=== PATIENT | female | born 1975 | race Caucasian/White ===

== ENCOUNTER 2016-08-08 16:34 | Emergency (ER) | payer OTHER ==
[~2016-08-08] VITALS: Ht 157.5 cm; Wt 94.6 kg
[~2016-08-08 16:34] MED LIST: FLXHP PO; GABA1CAP4 PO
[2016-08-08 16:36] VITALS: TEMP 37.3; Ht 157.5 cm; Wt 94.6 kg
[2016-08-08] MEDS ORDERED: SODIUM CHLORIDE 0.9% 1000ML 1,000 ML IV STA (17:55)
[2016-08-08] MEDS ORDERED: ALBUT/IPRATROP 3MG/0.5MG NEB 3 ML VIAL INH STA (17:55)
[2016-08-08] MEDS ORDERED: SODIUM CHLORIDE 0.9% 500ML 500 ML IV STA (17:55)
[2016-08-08] MEDS ORDERED: METHYLPREDNISOLONE 125 MG VIAL IV STA (18:03)
--- NOTE | 2016-08-08 18:06 | EMERGENCY ROOM VISIT NOTE ---
History Report prepared by Cedrick: Ary Jain Under the Supervision of: Dr. Misti Jay M.D. First contact with patient: 17:30 Chief Complaint: COUGH Stated Complaint: CHEST BURNING WHEN I COUGH, LT SHOULDER/COLLARBONE Nursing Triage Summary: Chest congestion and burning when coughing. Cant breathe right when she is laying down. Left shoulder and collarbone are "out" Has been out since February 05. History of Present Illness The patient is a 41 year old female who presents to the Emergency Room with complaints of a worsening cough since yesterday morning. She states that her chest feels congested and "I can feel my lungs burning when I cough." She rates her pain as an 8/10. She is feeling lightheaded from coughing. The patient notes low-grade fevers. She has a personal history of asthma. She has been using her albuterol inhaler and breathing treatments for her symptoms. Source of History: patient Onset: yesterday morning Position: chest (respiratory) Symptom Intensity: 8/10 Quality: burning Timing: worsening Modifying Factors (Relieving): other (breathing treatments/albuterol inhalers) Associated Symptoms: + fevers Note: Pt notes lightheadedness. Review of Systems See HPI for pertinent positives & negatives. A total of 10 systems reviewed and were otherwise negative. Past Medical & Surgical Medical Problems: (1) Acute bronchitis (2) Acute bronchitis (3) Acute bronchitis (4) Ankle sprain (5) Asthma exacerbation (6) Asthma exacerbation (7) Asthma exacerbation (8) ASTHMA, UNSPECIFIED (9) Asthmatic bronchitis (10) Asthmatic bronchitis (11) Back pain (12) Back strain (13) Bilateral otitis media (14) Chest pain (15) CHRONIC OBSTRUCTIVE ASTHMA, W (ACUTE) EXACERBATION (16) Contusion of back wall of thorax (17) COPD exacerbation (18) Fall due to ice or snow (19) FAM HX-DIABETES MELLITUS (20) FAM HX-ISCHEM HEART DIS (21) FAMILY HISTORY OF OTHER CARDIOVASCULAR DISEASES (22) FAMILY HISTORY OF OTHER CARDIOVASCULAR DISEASES (23) FAMILY HX-MALIGNANCY NOS (24) HISTORY OF TOBACCO USE (25) Hypertension (26) LUMBAGO (27) MIGRAINE UNSPECIFIED W/O INTRACT MGRN W/O STATUS MIGRAINOSUS (28) Rib pain (29) Shortness of breath (30) Spasm of back muscles (31) urinary tract infection Surgical Problems: (1) section (2) Cholecystectomy (3) Tubal ligation Family History Cancer Diabetes mellitus Heart disease Hypertension Lung disease Social History Smoking Status: Former Smoker Alcohol Use: none Drug Use: none Marital Status: in relationship Housing Status: lives with friends Occupation Status: employed Current/Historical Medications Scheduled Azithromycin (Zithromax Z-Surya), 0 PO UD Mometasone Furoate-Formoterol (Dulera 100/5 Mcg), 2 PUFFS INH BID Prednisone (Prednisone), 10 MG PO DIRECTED Scheduled PRN Albuterol Inhaler (Ventolin Inhaler), 2 PUFFS INH Q4H PRN for SOB/Wheezing Albuterol Sulf (Proventil 0.083% 2.5MG/3ML), 3 ML NEB QID PRN for SOB/Wheezing Hydrocodone W/ Homatropine (Hycodan 5/1.5MG 5 Ml), 10 ML PO Q4H PRN for Cough Ibuprofen (Advil), 1,000 MG PO Q4-6HRS PRN for Pain Meloxicam (Meloxicam), 15 MG PO DAILY PRN for Arthritis Paim Allergies Coded Allergies: No Known Allergies (Unverified , 04/04/16) Physical Exam Vital Signs Date Time Temp Pulse Resp B/P Pulse Ox O2 Delivery O2 Flow Rate FiO2 08/08/16 19:58 111 18 142/98 96 08/08/16 18:30 114 20 119/85 94 08/08/16 17:53 120 08/08/16 16:39 93 Room Air 08/08/16 16:36 37.3 136 18 148/93 93 Room Air Physical Exam Vital signs reviewed. General: Well-appearing 41 year old female, in no significant distress. HEENT: No scleral icterus, PERRLA, neck supple. Atraumatic. Cardiovascular: Tachycardic rate and regular rhythm, no extra sounds. Pulmonary: Wheezing throughout both lung molina, normal work of breathing. Abdomen: Soft, nontender, nondistended, positive bowel sounds. Musculoskeletal: Atraumatic, no peripheral edema. Neurologic: Patient awake alert and oriented x 3, full strength in all 4 extremities. Cranial nerves 2 through 12 grossly intact. Skin: Warm, dry, no rash Medical Decision & Procedures ER Provider Diagnostic Interpretation: Radiology results as stated below per my review and radiologist interpretation: CHEST ONE VIEW PORTABLE HISTORY: Short of breath. Tachycardia. COMPARISON: Chest 08/20/2015. FINDINGS: The lungs are clear. Cardiac silhouette is normal in size. No pleural effusions. No pneumothorax. IMPRESSION: No acute process. Electronically signed by: Fredo Malin M.D. 08/08/2016 6:30 PM Laboratory Results 08/08/16 18:15 Red Blood Count 4.65, Mean Corpuscular Volume 86.7, Mean Corpuscular Hemoglobin 30.3, Mean Corpuscular Hemoglobin Concent 35.0, Mean Platelet Volume 11.0, Neutrophils (%) (Auto) 81.6, Lymphocytes (%) (Auto) 10.6, Monocytes (%) (Auto) 7.1, Eosinophils (%) (Auto) 0.2, Basophils (%) (Auto) 0.2, Neutrophils # (Auto) 14.54, Lymphocytes # (Auto) 1.89, Monocytes # (Auto) 1.27, Eosinophils # (Auto) 0.03, Basophils # (Auto) 0.03 08/08/16 18:15 Test 08/08/16 18:15 08/08/16 18:23 White Blood Count 17.82 K/uL (4.8-10.8) Red Blood Count 4.65 M/uL (4.2-5.4) Hemoglobin 14.1 g/dL (12.0-16.0) Hematocrit 40.3 % (37-47) Mean Corpuscular Volume 86.7 fL (80-100) Mean Corpuscular Hemoglobin 30.3 pg (25-34) Mean Corpuscular Hemoglobin Concent 35.0 g/dl (32-36) Platelet Count 317 K/uL (130-400) Mean Platelet Volume 11.0 fL (7.4-10.4) Neutrophils (%) (Auto) 81.6 % Lymphocytes (%) (Auto) 10.6 % Monocytes (%) (Auto) 7.1 % Eosinophils (%) (Auto) 0.2 % Basophils (%) (Auto) 0.2 % Neutrophils # (Auto) 14.54 K/uL (1.4-6.5) Lymphocytes # (Auto) 1.89 K/uL (1.2-3.4) Monocytes # (Auto) 1.27 K/uL (0.11-0.59) Eosinophils # (Auto) 0.03 K/uL (0-0.5) Basophils # (Auto) 0.03 K/uL (0-0.2) RDW Standard Deviation 42.8 fL (36.4-46.3) RDW Coefficient of Variation 13.7 % (11.5-14.5) Immature Granulocyte % (Auto) 0.3 % Immature Granulocyte # (Auto) 0.06 K/uL (0.00-0.02) Prothrombin Time 10.9 SECONDS (9.0-12.0) Prothromb Time International Ratio 1.0 (0.9-1.1) Activated Partial Thromboplast Time 31.0 SECONDS (21.0-31.0) Partial Thromboplastin Ratio 1.2 Anion Gap 13.0 mmol/L (3-11) Est Creatinine Clear Calc Drug Dose 97.0 ml/min Estimated GFR () 103.8 Estimated GFR (Non- 89.6 BUN/Creatinine Ratio 6.9 (10-20) Calcium Level 8.8 mg/dl (8.5-10.1) Magnesium Level 2.2 mg/dl (1.8-2.4) Total Bilirubin 0.5 mg/dl (0.2-1) Direct Bilirubin 0.1 mg/dl (0-0.2) Aspartate Amino Transf (AST/SGOT) 12 U/L (15-37) Alanine Aminotransferase (ALT/SGPT) 30 U/L (12-78) Alkaline Phosphatase 52 U/L (45-117) Total Creatine Kinase 73 U/L (26-192) Creatine Kinase MB 1.2 ng/ml (0.5-3.6) Creatine Kinase MB Ratio 1.6 (0-3.0) Total Protein 7.7 gm/dl (6.4-8.2) Albumin 3.5 gm/dl (3.4-5.0) Bedside D-Dimer 268 ng/mlFEU (0-450) Bedside Troponin I 0.000 ng/ml (0-0.045) Laboratory results per my review. Medications Administered Medications (Trade) Dose Ordered Sig/Maru Route Start Time Stop Time Status Last Admin Dose Admin Sodium Chloride 500 ml @ 999 mls/hr Q31M STAT IV 08/08/16 17:55 08/08/16 18:25 DC 08/08/16 17:55 999 MLS/HR Sodium Chloride (Nss 1000ml) 1,000 ml @ 125 mls/hr Q8H STAT IV 08/08/16 17:55 08/08/16 20:25 DC 08/08/16 17:55 125 MLS/HR Albuterol/ Ipratropium (Duoneb) 3 ml NOW STAT INH 08/08/16 17:55 08/08/16 17:57 DC 08/08/16 18:29 3 ML Methylprednisolone Sodium Succinate (Solu-Medrol IV) 125 mg NOW STAT IV 08/08/16 18:03 08/08/16 18:04 DC 08/08/16 18:28 125 MG ECG Indication: SOB/dyspnea Rate (beats per minute): 111 Rhythm: sinus tachycardia Findings: no acute ischemic change, no ectopy ED Course 1731: Past medical records reviewed. The patient was evaluated in room B2. A complete history and physical examination was performed. 175: Duoneb 3 ml INH, NSS 1000 ml @ 125 mls/hr IV, NSS 500 ml @ 999 mls/hr IV 1803: Solu-Medrol 125 mg IV 1958: I reassessed the patient at this time. She is feeling better and resting comfortably. I discussed the results and treatment plan with the patient. I answered all pertaining questions that she had. She expressed understanding and verbalized agreement. The patient will be discharged home. Medical Decision Differential diagnosis: Etiologies such as infections, reactive airway disease, pneumonia, pneumothorax , COPD, CHF, cardiac ischemia, pulmonary embolism, musculoskeletal, gastrointestinal, as well as others were entertained. This pt was evaluated and appeared to be in no distress. IV access was obtained and lab work was drawn. EKG reveals a ST, CXR is clear. Lab work reveals a leukocytosis. Pt was hydrated with NSS and given a duoneb treatment. She had some resolution of her symptoms. D-dimer was normal. Pt was placed on azithromycin, prednisone taper and to continue albuterol as needed. She will f/u with her PCP this week and return to the ED for worsening of symptoms or any medical concerns. Impression Primary Impression: Acute bronchitis Additional Impression: Wheezing Scribe Attestation The scribe's documentation has been prepared under my direction and personally reviewed by me in its entirety. I confirm that the note above accurately reflects all work, treatment, procedures, and medical decision making performed by me. Departure Information Dispostion Home / Self-Care Prescriptions Azithromycin (ZITHROMAX Z-SURYA) 250 Mg Tab 0 PO UD, #1 PKT 2 TABS DAY 1, THEN 1 TAB DAILY FOR 4 DAYS Prov: Misti Jay M.D. 08/08/16 Hydrocodone W/ Homatropine (HYCODAN 5/1.5MG 5 ML) 1 Syp Syp 10 ML PO Q4H Y for Cough, #100 ML Prov: Misti Jay M.D. 08/08/16 Prednisone (Prednisone) 10 Mg Tab 10 MG PO DIRECTED, #31 TAB 40 mg for 4 days, 30 mL for 3 days, 20 mg for 2 days, 10 mg for 2 days Prov: Misti Jay M.D. 08/08/16 Referrals Misty Wilson M.D. (MEDICAL) (PCP) Forms HOME CARE DOCUMENTATION FORM, IMPORTANT VISIT INFORMATION Patient Instructions A Signature Page, My [facility] Additional Instructions Diagnosis: Viral URI, wheezing, cough Albuterol inhaler 2 puffs every 4 hours as needed for cough or wheezing. Azithromycin 500 mg today, 250 mg daily for the next 4 days. Prednisone 40 mg for 4 days, 30 mg for 3 days, 20 mL for 2 days, 10 mg for 2 days. Hycodan syrup 2 teaspoons every 4 hours as needed for cough. Do not drive after taking this medication. Follow-up with your physician this week for reevaluation. Return to the ER for worsening of symptoms or any medical concerns.
--- NOTE | 2016-08-08 18:32 | DIAGNOSTIC IMAGING REPORT ---
CHEST ONE VIEW PORTABLE HISTORY: Short of breath. Tachycardia. COMPARISON: Chest 08/20/2015. FINDINGS: The lungs are clear. Cardiac silhouette is normal in size. No pleural effusions. No pneumothorax. IMPRESSION: No acute process. Electronically signed by: Fredo Malin M.D. 08/08/2016 6:30 PM
[2016-08-08 18:38] LABS: BASO % 0.2 %; BASO ABS # 0.03 K/uL (0-0.2); COMPLETE YES; EOS % 0.2 %; HEMATOCRIT 40.3 % (37-47); IG% 0.3 %; LYMPH % 10.6 %; LYMPH ABS # 1.89 K/uL (1.2-3.4); MEAN CELL VOLUME 86.7 fL (80-100); MEAN CORPUSCULAR HEMOGLOBIN 30.3 pg (25-34); MONO % 7.1 %; NEUT % 81.6 %; PLATELET COUNT 317 K/uL (130-400); RED BLOOD COUNT 4.65 M/uL (4.2-5.4); WHITE BLOOD COUNT 17.82 K/uL (4.8-10.8)
[2016-08-08] MEDS ORDERED: ALBUAER19 INH (18:49)
[2016-08-08 18:52] LABS: PARTIAL THROMBOPLASTIN RATIO 1.2; PROTHROMBIN TIME (PATIENT) 10.9 SECONDS (9.0-12.0)
[2016-08-08 18:57] LABS: BUN/CREATININE RATIO 6.9 (10-20); CALCIUM 8.8 mg/dl (8.5-10.1); CREATININE 0.81 mg/dl (0.60-1.20); MAGNESIUM 2.2 mg/dl (1.8-2.4); POTASSIUM 3.7 mmol/L (3.5-5.1)
[2016-08-08 19:02] LABS: CKMB/CK RATIO 1.6 (0-3.0)
[2016-08-08] MEDS ORDERED: PRED10TA PO (19:46)
[2016-08-08] MEDS ORDERED: HYDR5SYP11 PO (19:46)
[2016-08-08 19:58] VITALS: BP 142/98; PULSE 111; O2SAT 96
[2016-08-08] MEDS ORDERED: AZITTAB PO (20:00)
[2017-06-12] MEDS ORDERED: AZIT250T PO (18:05)
[2017-06-12] MEDS ORDERED: PRED50TA PO (18:05)
== END 2016-08-08 19:59 | disposition home or self-care (01) ==
LOC: C.EDB 16:35
DX: J20.9 Acute bronchitis, unspecified (principal); D72.829 Elevated white blood cell count, unspecified; R00.0 Tachycardia, unspecified; I10 Essential (primary) hypertension; J44.9 Chronic obstructive pulmonary disease, unspecified; J45.909 Unspecified asthma, uncomplicated; Z87.440 Personal history of urinary (tract) infections; Z87.828 Personal history of other (healed) physical injury and trauma; Z86.19 Personal history of other infectious and parasitic diseases; Z91.81 History of falling; Z87.891 Personal history of nicotine dependence; Z98.51 Tubal ligation status; Z90.49 Acquired absence of other specified parts of digestive tract; Z80.9 Family history of malignant neoplasm, unspecified; Z83.3 Family history of diabetes mellitus; Z82.49 Family history of ischemic heart disease and other diseases of the circulatory system

== ENCOUNTER 2016-10-31 17:59 | Emergency (ER) | payer OTHER ==
[~2016-10-31] VITALS: Ht 157.5 cm; Wt 95.7 kg
[~2016-10-31 17:59] MED LIST changes: +ALBUAER19 INH; -FLXHP PO; -GABA1CAP4 PO; +PRED10TA PO
[2016-10-31 18:04] VITALS: TEMP 36.9; Ht 157.5 cm; Wt 95.7 kg
[2016-10-31] MEDS ORDERED: IBUP-1050 PO (18:09)
[2016-10-31] MEDS ORDERED: MELO15TA4 PO (18:49)
[2016-10-31] MEDS ORDERED: ALBINS/ NEB (18:49)
[2016-10-31] MEDS ORDERED: MOME100A INH (18:49)
[2016-10-31] MEDS ORDERED: VNTHFA/IN INH (20:05)
--- NOTE | 2016-10-31 20:26 | EMERGENCY ROOM VISIT NOTE ---
History First contact with patient: 19:49 Chief Complaint: HEAD PAIN Stated Complaint: LUMP ON BACK LEFT SIDE OF HEAD History of Present Illness The patient is a 41 year old female smoker with hx of Asthma, COPD, Vertigo who presents to the Emergency Room with complaints of lump of back Head and associated pain. She reports 1 day prior to arrival she was sitting on the couch and felt a sharp pain on the back of her head. The pain was 9/10 and she also noted pain radiating down or LUE with additional sensation of numbness and tingling. The numbness and tingling resolved after a few minutes but pain at the area of the lump remained throughout the day. She does not recall LOC, Head injury. She has been taking Ibuprofen 400-600mg q4hrs She denies CP, SOB, Palpitation, Review of Systems See HPI for pertinent positives & negatives. A total of 10 systems reviewed and were otherwise negative. Past Medical/Surgical History Medical Problems: (1) Acute bronchitis (2) Acute bronchitis (3) Acute bronchitis (4) Ankle sprain (5) Asthma exacerbation (6) Asthma exacerbation (7) Asthma exacerbation (8) ASTHMA, UNSPECIFIED (9) Asthmatic bronchitis (10) Asthmatic bronchitis (11) Back pain (12) Back strain (13) Bilateral otitis media (14) Chest pain (15) CHRONIC OBSTRUCTIVE ASTHMA, W (ACUTE) EXACERBATION (16) Contusion of back wall of thorax (17) COPD exacerbation (18) Fall due to ice or snow (19) FAM HX-DIABETES MELLITUS (20) FAM HX-ISCHEM HEART DIS (21) FAMILY HISTORY OF OTHER CARDIOVASCULAR DISEASES (22) FAMILY HISTORY OF OTHER CARDIOVASCULAR DISEASES (23) FAMILY HX-MALIGNANCY NOS (24) HISTORY OF TOBACCO USE (25) Hypertension (26) LUMBAGO (27) MIGRAINE UNSPECIFIED W/O INTRACT MGRN W/O STATUS MIGRAINOSUS (28) Rib pain (29) Shortness of breath (30) Spasm of back muscles (31) urinary tract infection Surgical Problems: (1) section (2) Cholecystectomy (3) Tubal ligation Family History Cancer Diabetes mellitus Heart disease Hypertension Lung disease Social History Smoking Status: Current Every Day Smoker Alcohol Use: none Drug Use: none Marital Status: in relationship Housing Status: lives with friends Occupation Status: employed Current/Historical Medications Scheduled Mometasone Furoate-Formoterol (Dulera 100/5 Mcg), 2 PUFFS INH BID Scheduled PRN Albuterol Hfa (Ventolin Hfa), 2 PUFFS INH Q4 PRN for Pain Albuterol Sulf (Proventil 0.083% 2.5MG/3ML), 3 ML NEB QID PRN for SOB/Wheezing Ibuprofen (Advil), 400-600 MG PO Q4-6HRS PRN for Pain Meloxicam (Meloxicam), 15 MG PO DAILY PRN for Arthritis Paim Allergies Coded Allergies: No Known Allergies (Unverified , 04/04/16) Physical Exam Vital Signs Date Time Temp Pulse Resp B/P Pulse Ox O2 Delivery O2 Flow Rate FiO2 10/31/16 21:57 94 16 126/78 98 Room Air 10/31/16 20:00 89 22 165/127 94 10/31/16 18:04 36.9 111 18 143/99 94 Room Air Physical Exam GENERAL: alert, well appearing, well nourished, no distress, non-toxic EYE EXAM: normal conjunctiva, PERRL and EOM's grossly intact OROPHARYNX: no exudate, no erythema, lips, buccal mucosa, and tongue normal and mucous membranes are moist NECK: supple, no nuchal rigidity, no adenopathy, non-tender LUNGS: Clear to auscultation. Normal chest wall mechanics HEART: no murmurs, S1 normal and S2 normal ABDOMEN: abdomen soft, non-tender, normo-active bowel sounds, no masses, no rebound or guarding. SKIN: no rashes and no bruising UPPER EXTREMITIES: upper extremities are grossly normal. LOWER EXTREMITIES: No pitting edema. NEURO EXAM: Normal sensorium, cranial nerves II-XII intact, normal speech, no weakness of arms, no weakness of legs. No drift. Gross sensation intact Medical Decision & Procedures ER Provider Diagnostic Interpretation: CT SCAN OF THE BRAIN WITHOUT IV CONTRAST CLINICAL HISTORY: Head injury. COMPARISON STUDY: CT of the brain dated 12/31/2012. TECHNIQUE: Unenhanced axial CT scan of the brain is performed from the vertex to the skull base. Automated dose control exposure was utilized. CT DOSE: 773.57 mGy.cm FINDINGS: Brain parenchyma: The brain parenchyma is normal in appearance. There is no hemorrhage, mass effect, or evidence of acute territorial ischemia by CT criteria. [place]-white matter is preserved. No extra-axial fluid collection is seen. Ventricles, sulci, cisterns: Normal in configuration. Intracranial vasculature: The visualized intracranial vasculature at the skull base is normal in appearance. Calvarium: There is no depressed calvarial fracture. The patient is edentulous. Sinuses and mastoids: The visualized paranasal sinuses are clear. The mastoid air cells are well pneumatized. Orbits: The bony orbits are grossly intact. IMPRESSION: No acute intracranial abnormality. Laboratory Results 10/31/16 20:40 10/31/16 20:40 Test 10/31/16 20:40 Red Blood Count 4.89 M/uL (4.2-5.4) Mean Corpuscular Volume 88.3 fL (80-100) Mean Corpuscular Hemoglobin 31.1 pg (25-34) Mean Corpuscular Hemoglobin Concent 35.2 g/dl (32-36) RDW Standard Deviation 45.5 fL (36.4-46.3) RDW Coefficient of Variation 14.1 % (11.5-14.5) Mean Platelet Volume 10.6 fL (7.4-10.4) Anion Gap 8.0 mmol/L (3-11) Est Creatinine Clear Calc Drug Dose 98.8 ml/min Estimated GFR () 105.4 Estimated GFR (Non- 90.9 BUN/Creatinine Ratio 12.6 (10-20) Calcium Level 8.8 mg/dl (8.5-10.1) Medications Administered Medications (Trade) Dose Ordered Sig/Maru Route Start Time Stop Time Status Last Admin Dose Admin Sodium Chloride 1,000 ml @ 999 mls/hr Q1H1M STAT IV 10/31/16 20:29 10/31/16 21:29 DC 10/31/16 20:54 999 MLS/HR Prochlorperazine Edisylate/Syringe (Compazine Inj/ Syringe) 10 ml @ 5 mls/min NOW STAT IV 10/31/16 20:30 10/31/16 20:32 DC 10/31/16 20:54 5 MLS/MIN Diphenhydramine HCl (Benadryl Inj) 50 mg NOW STAT IV 10/31/16 20:30 10/31/16 20:32 DC 10/31/16 20:56 50 MG Ketorolac Tromethamine (Toradol Inj) 30 mg NOW STAT IV 10/31/16 20:30 10/31/16 20:32 DC 10/31/16 20:55 30 MG Medical Decision Differential Diagnosis includes but is not limited to headache, tension headache , cluster headache, migraine, subarachnoid hemorrhage, meningitis, mass, central venous thrombus, concussion, trauma and epidural/subdural hemorrhage. 41 yo F with hx of asthma, COPD , Vertigo, Migraines p/w Left Occipital Headache with pain radiating down LUE - Given 50mg Benadryl - Given 30 mg Toradol - Given1 L of fluid -Given 10 mg Compazine No evidence of Head injury. no known Trauma, syncopal episode. symptoms likely attributed to migraine which is supported by patient's history of migraines. Upon reevaluation, the patient is feeling better. I discussed the findings and the treatment plan with the patient including relaxation, hydration and followup this week with PCP. She verbalizes agreement and understanding. She was discharged home. Impression Primary Impression: Left-sided headache Departure Information Dispostion Home / Self-Care Referrals Misty Wilson M.D. (MEDICAL) (PCP) Patient Instructions My [facility] Resident Tracking Resident Involvement: Resident Care Provided Care Provided: Adult ED
[2016-10-31] MEDS ORDERED: SODIUM CHLORIDE 0.9% 1000ML 1,000 ML IV STA (20:29)
[2016-10-31] MEDS ORDERED: KETOROLAC TROMETHAMINE 30 MG/ML VIAL IV STA (20:30)
[2016-10-31] MEDS ORDERED: DiphenhydrAMINE HCL 50 MG/ML VIAL IV STA (20:30)
[2016-10-31] MEDS ORDERED: PROCHLORPERAZINE INJ 10 MG in SYRINGE 8 ML IV STA (20:30)
--- NOTE | 2016-10-31 20:46 | EMERGENCY ROOM VISIT NOTE ---
History Report prepared by Cedrick: Henri Hatch Under the Supervision of: Dr. Mike Valentin M.D. First contact with patient: 19:47 Chief Complaint: HEAD PAIN Stated Complaint: LUMP ON BACK LEFT SIDE OF HEAD History of Present Illness The patient is a 41 year old female who presents to the Emergency Room with complaints of constant head pain in the back left of her head starting yesterday morning around 0930 in the morning. She currently rates her discomfort as an 8/10 in severity. The patient states that she was sitting on the couch, and she moved her head and had shooting pain on her head, and she felt a lump on the back of her head. She denies any falls or loss of consciousness. The patient states that she has a history of passing out and vertigo which she does not take medication for anymore. She states that this pain is going down her neck and into her arm. The patient states that she has a history of migraines, and she gets nauseous if she reads too much. She denies any fevers, abnormal coughs, or photophobia. She states that she has a history of asthma, COPD, and she uses an inhaler, and ibuprofen as needed. She took ibuprofen around 1500 today. Source of History: patient Onset: yesterday morning around 0930 Position: head Symptom Intensity: 8/10 Quality: other (shooting) Timing: constant Associated Symptoms: + nausea, No LOC, No cough, No fevers Review of Systems See HPI for pertinent positives & negatives. A total of 10 systems reviewed and were otherwise negative. Past Medical & Surgical Medical Problems: (1) Acute bronchitis (2) Acute bronchitis (3) Acute bronchitis (4) Ankle sprain (5) Asthma exacerbation (6) Asthma exacerbation (7) Asthma exacerbation (8) ASTHMA, UNSPECIFIED (9) Asthmatic bronchitis (10) Asthmatic bronchitis (11) Back pain (12) Back strain (13) Bilateral otitis media (14) Chest pain (15) CHRONIC OBSTRUCTIVE ASTHMA, W (ACUTE) EXACERBATION (16) Contusion of back wall of thorax (17) COPD exacerbation (18) Fall due to ice or snow (19) FAM HX-DIABETES MELLITUS (20) FAM HX-ISCHEM HEART DIS (21) FAMILY HISTORY OF OTHER CARDIOVASCULAR DISEASES (22) FAMILY HISTORY OF OTHER CARDIOVASCULAR DISEASES (23) FAMILY HX-MALIGNANCY NOS (24) HISTORY OF TOBACCO USE (25) Hypertension (26) LUMBAGO (27) MIGRAINE UNSPECIFIED W/O INTRACT MGRN W/O STATUS MIGRAINOSUS (28) Rib pain (29) Shortness of breath (30) Spasm of back muscles (31) urinary tract infection Surgical Problems: (1) section (2) Cholecystectomy (3) Tubal ligation Family History Cancer Diabetes mellitus Heart disease Hypertension Lung disease Social History Smoking Status: Current Every Day Smoker Alcohol Use: none Drug Use: none Marital Status: in relationship Housing Status: lives with friends Occupation Status: employed Current/Historical Medications Scheduled Mometasone Furoate-Formoterol (Dulera 100/5 Mcg), 2 PUFFS INH BID Scheduled PRN Albuterol Hfa (Ventolin Hfa), 2 PUFFS INH Q4 PRN for Pain Albuterol Sulf (Proventil 0.083% 2.5MG/3ML), 3 ML NEB QID PRN for SOB/Wheezing Ibuprofen (Advil), 400-600 MG PO Q4-6HRS PRN for Pain Meloxicam (Meloxicam), 15 MG PO DAILY PRN for Arthritis Paim Allergies Coded Allergies: No Known Allergies (Unverified , 04/04/16) Physical Exam Vital Signs Date Time Temp Pulse Resp B/P Pulse Ox O2 Delivery O2 Flow Rate FiO2 10/31/16 21:57 94 16 126/78 98 Room Air 10/31/16 20:00 89 22 165/127 94 10/31/16 18:04 36.9 111 18 143/99 94 Room Air Physical Exam GENERAL: Patient is in no acute distress. HEENT: No scalp hematoma. No posterior occipital adenopathy. Tenderness over the left posterior occipital scalp. No rash. No acute trauma, normocephalic atraumatic, mucous membranes moist, no nasal congestion, no scleral icterus. NECK: No stridor, no adenopathy, no meningismus, trachea is midline. LUNGS: Clear to auscultation bilaterally, no wheeze, no rhonchi, breath sounds equal. HEART: Without murmurs gallops or rubs, regular rate and rhythm. ABDOMEN: Soft, nontender, bowel sounds positive, no hernias, no peritonitis. EXTREMITIES: No cyanosis or edema, full range of motion of all the joints without pain or difficulty, no signs for acute trauma. NEUROLOGIC: Oriented x 3, no acute motor or sensory deficits, no focal weakness. SKIN: No rash, no jaundice, no diaphoresis. Medical Decision & Procedures ER Provider Diagnostic Interpretation: CT results as stated below per my review and radiologist interpretation: CT SCAN OF THE BRAIN WITHOUT IV CONTRAST CLINICAL HISTORY: Head injury. COMPARISON STUDY: CT of the brain dated 12/31/2012. TECHNIQUE: Unenhanced axial CT scan of the brain is performed from the vertex to the skull base. Automated dose control exposure was utilized. CT DOSE: 773.57 mGy.cm FINDINGS: Brain parenchyma: The brain parenchyma is normal in appearance. There is no hemorrhage, mass effect, or evidence of acute territorial ischemia by CT criteria. [place]-white matter is preserved. No extra-axial fluid collection is seen. Ventricles, sulci, cisterns: Normal in configuration. Intracranial vasculature: The visualized intracranial vasculature at the skull base is normal in appearance. Calvarium: There is no depressed calvarial fracture. The patient is edentulous. Sinuses and mastoids: The visualized paranasal sinuses are clear. The mastoid air cells are well pneumatized. Orbits: The bony orbits are grossly intact. IMPRESSION: No acute intracranial abnormality. Electronically signed by: Mike Ferreira M.D. 10/31/2016 9:30 PM Dictated Date/Time: 10/31/2016 9:28 PM Laboratory Results 10/31/16 20:40 10/31/16 20:40 Test 10/31/16 20:40 Red Blood Count 4.89 M/uL (4.2-5.4) Mean Corpuscular Volume 88.3 fL (80-100) Mean Corpuscular Hemoglobin 31.1 pg (25-34) Mean Corpuscular Hemoglobin Concent 35.2 g/dl (32-36) RDW Standard Deviation 45.5 fL (36.4-46.3) RDW Coefficient of Variation 14.1 % (11.5-14.5) Mean Platelet Volume 10.6 fL (7.4-10.4) Anion Gap 8.0 mmol/L (3-11) Est Creatinine Clear Calc Drug Dose 98.8 ml/min Estimated GFR () 105.4 Estimated GFR (Non- 90.9 BUN/Creatinine Ratio 12.6 (10-20) Calcium Level 8.8 mg/dl (8.5-10.1) Laboratory results reviewed by me. Medications Administered Medications (Trade) Dose Ordered Sig/Maru Route Start Time Stop Time Status Last Admin Dose Admin Sodium Chloride 1,000 ml @ 999 mls/hr Q1H1M STAT IV 10/31/16 20:29 10/31/16 21:29 DC 10/31/16 20:54 999 MLS/HR Prochlorperazine Edisylate/Syringe (Compazine Inj/ Syringe) 10 ml @ 5 mls/min NOW STAT IV 10/31/16 20:30 10/31/16 20:32 DC 10/31/16 20:54 5 MLS/MIN Diphenhydramine HCl (Benadryl Inj) 50 mg NOW STAT IV 10/31/16 20:30 10/31/16 20:32 DC 10/31/16 20:56 50 MG Ketorolac Tromethamine (Toradol Inj) 30 mg NOW STAT IV 10/31/16 20:30 10/31/16 20:32 DC 10/31/16 20:55 30 MG ECG Indication: other (head pain) Rate (beats per minute): 92 Rhythm: normal sinus Findings: no acute ischemic change, no ectopy ED Course 2020: The patient was evaluated in room C7. A complete history and physical exam was performed. 2028: Sodium Chloride 1000 ml @ 999 mls/hr IV 2030: Toradol Inj 30mg IV, Benadryl Inj 50mg IV, Prochlorperazine Edisylate 10mg / Syringe 10ml @ 5 mls/min 8: Reevaluated the patient. Discussed results and discharge instructions: She verbalized understanding and agreement. The patient is ready for discharge. Medical Decision The patient is a 41 year old female who presents to the ED with complaints of head pain. Differential diagnoses considered include migraine headache, intracranial bleeding, head injury, occipital neuralgia, syncope, anemia, infection, electrolyte abnormality. There is no significant leukocytosis or concerning anemia. No significant electrolyte abnormality or kidney failure. Brain CT shows no acute bleed or mass effect. EKG shows a sinus rhythm, no acute ischemia. On exam, there are no focal neurologic deficits. The patient is not toxic or febrile. There is no meningismus. The patient presents with a left sided posterior headache. She has had some nausea. She has a history of migraines. Patient received IV Toradol, IV Benadryl, IV Compazine and IV saline, she feels significantly improved. She was reassured. I do think she can be discharged home. Her headache is likely migrainous. She has no recollection of any syncopal event in the last few days-I highly doubt syncope as a cause for her trouble. Impression Primary Impression: Left-sided headache Scribe Attestation The scribe's documentation has been prepared under my direction and personally reviewed by me in its entirety. I confirm that the note above accurately reflects all work, treatment, procedures, and medical decision making performed by me. Departure Information Dispostion Home / Self-Care Referrals Misty Wilson M.D. (MEDICAL) (PCP) Forms HOME CARE DOCUMENTATION FORM, IMPORTANT VISIT INFORMATION, WORK / SCHOOL INSTRUCTIONS Patient Instructions Headache Pain, My [facility] Prescribe Wellness Additional Instructions -If symptoms worsens or you develop fevers >100.4 nausea/vomiting please call clinic or return to Emergency Department -Please make sure you are well hydrated at home -Follow up with Primary Care provider this week for further management
[2016-10-31 20:53] LABS: HEMATOCRIT 43.2 % (37-47); MEAN CELL VOLUME 88.3 fL (80-100); MEAN CORPUSCULAR HEMOGLOBIN 31.1 pg (25-34); MEAN CORPUSCULAR HGB CONC 35.2 g/dl (32-36); MEAN PLATELET VOLUME 10.6 fL (7.4-10.4); PLATELET COUNT 372 K/uL (130-400); RED BLOOD COUNT 4.89 M/uL (4.2-5.4); WHITE BLOOD COUNT 10.82 K/uL (4.8-10.8)
[2016-10-31 21:18] LABS: BUN/CREATININE RATIO 12.6 (10-20); CALCIUM 8.8 mg/dl (8.5-10.1); CREATININE 0.8 mg/dl (0.60-1.20); POTASSIUM 4.1 mmol/L (3.5-5.1)
--- NOTE | 2016-10-31 21:31 | DIAGNOSTIC IMAGING REPORT ---
CT SCAN OF THE BRAIN WITHOUT IV CONTRAST CLINICAL HISTORY: Head injury. COMPARISON STUDY: CT of the brain dated 12/31/2012. TECHNIQUE: Unenhanced axial CT scan of the brain is performed from the vertex to the skull base. Automated dose control exposure was utilized. CT DOSE: 773.57 mGy.cm FINDINGS: Brain parenchyma: The brain parenchyma is normal in appearance. There is no hemorrhage, mass effect, or evidence of acute territorial ischemia by CT criteria. [place]-white matter is preserved. No extra-axial fluid collection is seen. Ventricles, sulci, cisterns: Normal in configuration. Intracranial vasculature: The visualized intracranial vasculature at the skull base is normal in appearance. Calvarium: There is no depressed calvarial fracture. The patient is edentulous. Sinuses and mastoids: The visualized paranasal sinuses are clear. The mastoid air cells are well pneumatized. Orbits: The bony orbits are grossly intact. IMPRESSION: No acute intracranial abnormality. Electronically signed by: Mike Ferreira M.D. 10/31/2016 9:30 PM Dictated Date/Time: 10/31/2016 9:28 PM
[2016-10-31 21:57] VITALS: BP 126/78; PULSE 94; O2SAT 98
== END 2016-10-31 22:24 | disposition home or self-care (01) ==
LOC: C.EDB 18:00 → C.EDC 22:24
DX: R51 Headache (principal); I10 Essential (primary) hypertension; J44.9 Chronic obstructive pulmonary disease, unspecified; J45.909 Unspecified asthma, uncomplicated; F17.200 Nicotine dependence, unspecified, uncomplicated; Z87.828 Personal history of other (healed) physical injury and trauma; Z87.440 Personal history of urinary (tract) infections; Z90.49 Acquired absence of other specified parts of digestive tract; Z98.51 Tubal ligation status; Z80.9 Family history of malignant neoplasm, unspecified; Z83.3 Family history of diabetes mellitus; Z82.49 Family history of ischemic heart disease and other diseases of the circulatory system

== ENCOUNTER 2017-06-18 15:18 | Emergency (ER) | payer OTHER ==
[~2017-06-18] VITALS: Ht 157.5 cm; Wt 91.4 kg
[~2017-06-18 15:18] MED LIST changes: -ALBUAER19 INH; +AZIT250T PO; -PRED10TA PO
[2017-06-18 15:29] VITALS: BP 158/99; TEMP 36.7; Ht 157.5 cm; Wt 91.4 kg
[2017-06-18] MEDS ORDERED: CETI10TA84 PO (15:49)
--- NOTE | 2017-06-18 16:15 | DIAGNOSTIC IMAGING REPORT ---
L ANKLE MIN 3 VIEWS ROUTINE CLINICAL HISTORY: Left ankle pain following injury. COMPARISON: Left tibia and fibula radiographs May 19, 2012. FINDINGS: Alignment of the left ankle is anatomic. There is no acute fracture. There is moderate lateral ankle soft tissue swelling. Talar dome is intact. There is mild posterior calcaneal spurring at the insertion of the Achilles. IMPRESSION: 1. No acute fracture or dislocation of the left ankle. 2. Moderate lateral ankle soft tissue swelling. Electronically signed by: Justo Martin M.D. 06/18/2017 4:14 PM Dictated Date/Time: 06/18/2017 3:57 PM
[2017-06-18 16:40] VITALS: PULSE 85; O2SAT 96
[2017-06-18] MEDS ORDERED: ASPI-390 PO (16:48)
[2017-06-18] MEDS ORDERED: MOME100A INH (18:49)
[2017-06-18] MEDS ORDERED: ALBINS/ NEB (18:49)
[2017-06-18] MEDS ORDERED: VNTHFA/IN INH (20:05)
--- NOTE | 2017-06-19 00:35 | EMERGENCY ROOM VISIT NOTE ---
ED Visit Note First contact with patient: 15:32 Chief Complaint: I twisted my left ankle. History of Present Illness: Ms. Valdez is a 42-year-old white female who ambulates into the ED complaining of left lateral ankle pain. Patient reports approximately 10:00 last evening, proximally 15 hours ago, she reports she was walking in her yard [place] stepped in a hole and twisted her left ankle. She reports at the time of the injury she started developing some mild pain over the lateral aspect and her pain has gradually increased in intensity. She was able to walk and work throughout the day. Currently she is complaining of a sharp and throbbing pain in and around the left lateral malleolus. She rates her discomfort 9/10. She has radiation of her pain into the distal fibula. Her pain worsens with ambulation, inversion, plantar flexion, and palpation. She reports taking Excedrin Migraine headache medication last night for pain without relief. She has not taken a medication for pain prior to arrival at the hospital. Associated with her pain she reports her toes are numb. She denies hip pain, knee pain, lower leg pain, leg weakness, previous significant injuries or surgeries to the ankle. Review of Systems: As noted above in history of present illness. Past Medical History: Hypertension, unspecified skin disorder, asthma, bronchitis, unspecified stomach disorder, status post tubal ligation, cholecystectomy and section. Current Medications: Albuterol, Excedrin Migraine, Zyrtec, Dulera. Allergies to Medications: Patient denies. Social History: Patient is currently employed; she feels safe in her home environment; she admits to tobacco use and denies alcohol use. Physical Examination: Vital Signs: Date Time Temp Pulse Resp B/P (MAP) Pulse Ox O2 Delivery O2 Flow Rate FiO2 06/18/17 16:40 85 16 96 Room Air 06/18/17 15:29 36.7 94 16 158/99 97 Room Air GENERAL: 42-year-old female in mild to moderate distress due to pain, nontoxic- appearing, afebrile and hemodynamically stable. NEUROLOGICAL: Awake, alert and oriented to person, place and time. Answering questions appropriately and following commands. SKIN: Warm, dry and pink. No soft tissue trauma noted. LEFT LOWER EXTREMITY: No gross bony deformity. No tenderness in the hip or lower leg. Moderate tenderness over the lateral malleolus and all of the surrounding ligamentous structures. There is moderate swelling but no bony deformity or crepitus. No ecchymosis. Was not able to do range of motion exercises or ligamentous testing due to patient's pain. Throughout the rest of the foot the skin was warm and pink and capillary refill is brisk. Patient was able to distinguish light sensations but does report her toes and foot feel numb. ED Course: Patient is assessed as noted above. Patient's medication list was reviewed. Patient is given ice for pain and comfort. Left Ankle X-Rays: Were read by myself and the radiologist showing no acute fractures or dislocations. Moderate lateral ankle swelling. Patient was placed in a gel splint and on a nonweightbearing crutches. Patient was educated about today's findings and instructed on her treatment plan ; she verbalizes understanding and agreement with this plan. Clinical Impression: Left ankle sprain. Decision-Making: Initially my differential diagnosis I considered ankle sprain, ankle fracture, ankle dislocation, distal fibula fracture and other causes. Disposition: Patient discharged home in stable condition; prior to departure she was reassessed and subjectively reported she was feeling better and rated her discomfort 4/10. Plan: Comfort measures were discussed with the patient including rest, ice, elevation , splint and crutch use. Patient was signed off of 3 days of work. Patient is encouraged to follow-up with orthopedics if no better in 7-10 days. Patient was encouraged return ED for worsening/uncontrolled pain, uncontrolled swelling, worsening foot numbness or any new/concerning symptoms.
== END 2017-06-18 16:43 | disposition home or self-care (01) ==
LOC: C.EDB 15:21 → C.EDD 16:43
DX: S93.402A Sprain of unspecified ligament of left ankle, initial encounter (principal); W17.2XXA Fall into hole, initial encounter; Y92.017 Garden or yard in single-family (private) house as the place of occurrence of the external cause; I10 Essential (primary) hypertension; J45.909 Unspecified asthma, uncomplicated; K31.9 Disease of stomach and duodenum, unspecified; L98.9 Disorder of the skin and subcutaneous tissue, unspecified; Z79.899 Other long term (current) drug therapy; Z72.0 Tobacco use

== ENCOUNTER 2017-10-02 17:49 | Emergency (ER) | payer SELFPAY ==
[~2017-10-02] VITALS: Ht 157.5 cm; Wt 85.9 kg
[~2017-10-02 17:49] MED LIST changes: +ASPI-390 PO; -AZIT250T PO; +CETI10TA84 PO
[2017-10-02 18:06] VITALS: TEMP 36.8; Ht 157.5 cm; Wt 85.9 kg
[2017-10-02] MEDS ORDERED: ALBUTEROL 0.083% NEBU SOLN 3 ML VIAL INH STA (18:30)
[2017-10-02] MEDS ORDERED: ALBINS/ NEB (18:49)
[2017-10-02] MEDS ORDERED: MOME100A INH (18:49)
--- NOTE | 2017-10-02 18:51 | DIAGNOSTIC IMAGING REPORT ---
CHEST ONE VIEW PORTABLE CLINICAL HISTORY: Shortness of breath. COMPARISON STUDY: Chest radiograph June 12, 2017. FINDINGS: Lung volumes are at the lower limits of normal. There is no pneumothorax or pleural effusion. There is no consolidation or evidence of pulmonary edema. Cardiomediastinal silhouette is unremarkable. IMPRESSION: No acute cardiopulmonary findings. Electronically signed by: Justo Martin M.D. 10/02/2017 6:49 PM Dictated Date/Time: 10/02/2017 6:49 PM
[2017-10-02 19:04] LABS: INFLUENZA B ANTIGEN Neg for Influ B (NEG)
[2017-10-02 19:22] LABS: BASO % 0.5 %; BASO ABS # 0.04 K/uL (0-0.2); EOS % 1.9 %; EOS ABS # 0.16 K/uL (0-0.5); HEMOGLOBIN 14.5 g/dL (12.0-16.0); IG# 0.02 K/uL (0.00-0.02); LYMPH ABS # 2.57 K/uL (1.2-3.4); MEAN CELL VOLUME 87.3 fL (80-100); MEAN CORPUSCULAR HEMOGLOBIN 30.1 pg (25-34); MEAN CORPUSCULAR HGB CONC 34.5 g/dl (32-36); MEAN PLATELET VOLUME 10.5 fL (7.4-10.4); MONO % 8.6 %; MONO ABS # 0.71 K/uL (0.11-0.59); NEUT % 57.8 %; NEUT ABS # 4.79 K/uL (1.4-6.5); PLATELET COUNT 357 K/uL (130-400); RED CELL DISTRIBUTION WIDTH CV 13.7 % (11.5-14.5); WHITE BLOOD COUNT 8.29 K/uL (4.8-10.8)
[2017-10-02 19:46] LABS: ALT/SGPT 26 U/L (12-78); AST/SGOT 15 U/L (15-37); BLOOD UREA NITROGEN 6 mg/dl (7-18); CALCIUM 8.9 mg/dl (8.5-10.1); CARBON DIOXIDE 26 mmol/L (21-32); CREATININE 0.86 mg/dl (0.60-1.20); GLUCOSE 89 mg/dl (70-99); LIPASE 96 U/L (73-393); POTASSIUM 3.5 mmol/L (3.5-5.1); SODIUM 137 mmol/L (136-145)
[2017-10-02 19:51] LABS: ALKALINE PHOSPHATASE 45 U/L (45-117); TOTAL PROTEIN 7.4 gm/dl (6.4-8.2)
[2017-10-02] MEDS ORDERED: VNTHFA/IN INH (20:05)
[2017-10-02] MEDS ORDERED: RANI1TAB75 PO (20:05)
[2017-10-02 20:33] VITALS: BP 146/98; PULSE 85; O2SAT 98
--- NOTE | 2017-10-02 21:37 | EMERGENCY ROOM VISIT NOTE ---
History Report prepared by Cedrick: Leroy Hyde Under the Supervision of: Dr. Darío Neri D.O. First contact with patient: 18:17 Chief Complaint: DIZZY Stated Complaint: DIZZY, OFF BALANCE, FEELS LIKE COULD VOMIT/PASS O[facility] Nursing Triage Summary: Patient ambulatory to triage, slowly, with a steady gait, states "Yesterday, I woke up with a migraine. Today, around 1550, I got really lightheaded and almost passed out. I am really dizzy, lightheaded and nauseated. I have been coughing a lot throughout the week. I am an asthamatic. I have a lot of neck pain. I do have a history of vertigo." History of Present Illness The patient is a 42 year old female who presents to the Emergency Room with complaints of a near-syncopal episode that occurred today at 1550, roughly 4 hours prior to arrival. The patient states that she had a migraine yesterday, which felt like her usual episodes. This morning when she woke up she "felt great" but then developed very mild intermittent headaches. The headache today was not nearly as bad as the migraines she has had in the past. The patient described the near-syncopal episode as a sudden onset lightheadedness that occurred as she was talking to her coworker. She notes that she began to fall forwards, before her coworker called her and stopped her from falling. She felt shaky with this episode. 30 minutes after this occurred she became nauseous. The patient currently has a mild headache in the back of her head. She continued to complain that she has experienced some increased/worsening shortness of breath lately that is now worse than her baseline chronic asthma. With the shortness of breath she has been coughing, which is producing a clear mucous. 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 A total of 10 systems reviewed and were otherwise negative. Past Medical & Surgical Medical Problems: (1) Acute bronchitis (2) Acute bronchitis (3) Acute bronchitis (4) Ankle sprain (5) Asthma exacerbation (6) Asthma exacerbation (7) Asthma exacerbation (8) ASTHMA, UNSPECIFIED (9) Asthmatic bronchitis (10) Asthmatic bronchitis (11) Back pain (12) Back strain (13) Bilateral otitis media (14) Chest pain (15) CHRONIC OBSTRUCTIVE ASTHMA, W (ACUTE) EXACERBATION (16) Contusion of back wall of thorax (17) COPD exacerbation (18) Fall due to ice or snow (19) FAM HX-DIABETES MELLITUS (20) FAM HX-ISCHEM HEART DIS (21) FAMILY HISTORY OF OTHER CARDIOVASCULAR DISEASES (22) FAMILY HISTORY OF OTHER CARDIOVASCULAR DISEASES (23) FAMILY HX-MALIGNANCY NOS (24) HISTORY OF TOBACCO USE (25) Hypertension (26) LUMBAGO (27) MIGRAINE UNSPECIFIED W/O INTRACT MGRN W/O STATUS MIGRAINOSUS (28) Rib pain (29) Shortness of breath (30) Spasm of back muscles (31) urinary tract infection Surgical Problems: (1) section (2) Cholecystectomy (3) Tubal ligation Family History Cancer Diabetes mellitus Heart disease Hypertension Lung disease Social History Smoking Status: Current Every Day Smoker Alcohol Use: none Drug Use: none Marital Status: in relationship Housing Status: lives with friends Occupation Status: employed Current/Historical Medications Scheduled Cetirizine (Zyrtec), 10 MG PO DAILY Mometasone Furoate-Formoterol (Dulera 100/5 Mcg), 2 PUFFS INH BID Scheduled PRN Albuterol Hfa (Ventolin Hfa), 2 PUFFS INH Q4H PRN for Pain Albuterol Sulf (Proventil 0.083% 2.5MG/3ML), 3 ML NEB QID PRN for SOB/Wheezing Hdgfrky-Dtykailjstmqh-Pjjykxif (Excedrin Migraine), 2 TABS PO Q8 PRN for Headache or Pain Ranitidine HCl (Ranitidine 75), 75 MG PO DAILY PRN for ACID REFLUX Allergies Coded Allergies: No Known Allergies (Unverified , 10/02/17) Physical Exam Vital Signs Date Time Temp Pulse Resp B/P (MAP) Pulse Ox O2 Delivery O2 Flow Rate FiO2 10/02/17 20:33 85 146/98 98 10/02/17 19:10 80 142/90 97 Room Air 10/02/17 18:06 36.8 90 20 170/102 98 Room Air Physical Exam GENERAL: Sitting up in bed, alert, well appearing, well nourished, no distress, non-toxic EYE EXAM: normal conjunctiva. PERRL and EOM's intact. OROPHARYNX: no exudate, no erythema, lips, buccal mucosa, and tongue normal and mucous membranes are moist NECK: supple, no nuchal rigidity, no adenopathy, non-tender LUNGS: Clear to auscultation. Normal chest wall mechanics HEART: no murmurs, S1 normal and S2 normal ABDOMEN: abdomen soft, non-tender, normo-active bowel sounds, no masses, no rebound or guarding. BACK: Back is symmetrical on inspection and there is no deformity, no midline tenderness, no CVA tenderness. SKIN: no rashes and no bruising UPPER EXTREMITIES: upper extremities are grossly normal. LOWER EXTREMITIES: No pitting edema. NEURO EXAM: Normal sensorium, cranial nerves II-XII grossly intact, normal speech, no gross weakness of arms, no gross weakness of legs. No drift. Finger to nose intact. Gross sensation intact. Medical Decision & Procedures ER Provider Diagnostic Interpretation: Radiology results as stated below per my review and the radiologist's interpretation: CHEST ONE VIEW PORTABLE CLINICAL HISTORY: Shortness of breath. COMPARISON STUDY: Chest radiograph June 12, 2017. FINDINGS: Lung volumes are at the lower limits of normal. There is no pneumothorax or pleural effusion. There is no consolidation or evidence of pulmonary edema. Cardiomediastinal silhouette is unremarkable. IMPRESSION: No acute cardiopulmonary findings. Electronically signed by: Justo Martin M.D. 10/02/2017 6:49 PM Dictated Date/Time: 10/02/2017 6:49 PM Laboratory Results 10/02/17 19:00 Red Blood Count 4.81, Mean Corpuscular Volume 87.3, Mean Corpuscular Hemoglobin 30.1, Mean Corpuscular Hemoglobin Concent 34.5, Mean Platelet Volume 10.5, Neutrophils (%) (Auto) 57.8, Lymphocytes (%) (Auto) 31.0, Monocytes (%) (Auto) 8.6, Eosinophils (%) (Auto) 1.9, Basophils (%) (Auto) 0.5, Neutrophils # (Auto) 4.79, Lymphocytes # (Auto) 2.57, Monocytes # (Auto) 0.71, Eosinophils # (Auto) 0.16, Basophils # (Auto) 0.04 10/02/17 19:00 Test 10/02/17 18:25 10/02/17 18:32 10/02/17 19:00 Urine Color YELLOW Urine Appearance CLEAR (CLEAR) Urine pH 6.5 (4.5-7.5) Urine Specific Kellogg 1.006 (1.000-1.030) Urine Protein NEG (NEG) Urine Glucose (UA) NEG (NEG) Urine Ketones NEG (NEG) Urine Occult Blood NEG (NEG) Urine Nitrite NEG (NEG) Urine Bilirubin NEG (NEG) Urine Urobilinogen NEG (NEG) Urine Leukocyte Esterase NEG (NEG) Urine WBC (Auto) 1-5 /hpf (0-5) Urine RBC (Auto) 0-4 /hpf (0-4) Urine Hyaline Casts (Auto) 0 /lpf (0-5) Urine Epithelial Cells (Auto) 5-10 /lpf (0-5) Urine Bacteria (Auto) NEG (NEG) Urine Test NEG (NEG) Influenza Type A Antigen Neg for Influ A (NEG) Influenza Type B Antigen Neg for Influ B (NEG) White Blood Count 8.29 K/uL (4.8-10.8) Red Blood Count 4.81 M/uL (4.2-5.4) Hemoglobin 14.5 g/dL (12.0-16.0) Hematocrit 42.0 % (37-47) Mean Corpuscular Volume 87.3 fL (80-100) Mean Corpuscular Hemoglobin 30.1 pg (25-34) Mean Corpuscular Hemoglobin Concent 34.5 g/dl (32-36) Platelet Count 357 K/uL (130-400) Mean Platelet Volume 10.5 fL (7.4-10.4) Neutrophils (%) (Auto) 57.8 % Lymphocytes (%) (Auto) 31.0 % Monocytes (%) (Auto) 8.6 % Eosinophils (%) (Auto) 1.9 % Basophils (%) (Auto) 0.5 % Neutrophils # (Auto) 4.79 K/uL (1.4-6.5) Lymphocytes # (Auto) 2.57 K/uL (1.2-3.4) Monocytes # (Auto) 0.71 K/uL (0.11-0.59) Eosinophils # (Auto) 0.16 K/uL (0-0.5) Basophils # (Auto) 0.04 K/uL (0-0.2) RDW Standard Deviation 44.0 fL (36.4-46.3) RDW Coefficient of Variation 13.7 % (11.5-14.5) Immature Granulocyte % (Auto) 0.2 % Immature Granulocyte # (Auto) 0.02 K/uL (0.00-0.02) D-Dimer < 190 ug/L FEU (0-500) Anion Gap 7.0 mmol/L (3-11) Est Creatinine Clear Calc Drug Dose 85.8 ml/min Estimated GFR () 95.9 Estimated GFR (Non- 82.7 BUN/Creatinine Ratio 7.3 (10-20) Calcium Level 8.9 mg/dl (8.5-10.1) Total Bilirubin 0.3 mg/dl (0.2-1) Direct Bilirubin < 0.1 mg/dl (0-0.2) Aspartate Amino Transf (AST/SGOT) 15 U/L (15-37) Alanine Aminotransferase (ALT/SGPT) 26 U/L (12-78) Alkaline Phosphatase 45 U/L (45-117) Troponin I < 0.015 ng/ml (0-0.045) Total Protein 7.4 gm/dl (6.4-8.2) Albumin 4.0 gm/dl (3.4-5.0) Lipase 96 U/L (73-393) Laboratory results per my review. Medications Administered Medications (Trade) Dose Ordered Sig/Maru Route Start Time Stop Time Status Last Admin Dose Admin Albuterol Sulfate (Ventolin 0.083% 2.5MG/3ML Neb) 2.5 mg NOW STAT INH 10/02/17 18:30 10/02/17 18:31 DC 10/02/17 18:48 2.5 MG ECG Per My Interpretation Indication: other (Near syncope, dizziness) Rate (beats per minute): 73 Rhythm: normal sinus Findings: other (No PVCs, Normal axis, NO ST elevation/depression) ED Course ED COURSE: Vital signs were reviewed and showed hypertensive vitals The patients medical record was reviewed The above diagnostic studies were performed and reviewed. ED treatments and interventions as stated above. 1817: The patient was evaluated in room C6. A complete history and physical examination was performed. 1829: Ordered Albuterol Sulfate 2.5 mg INH. 1958: Upon reevaluation, the patient is completely back to her baseline.I discussed my findings with the patient and she understands and agrees with the treatment plan. Based on the patients age, coexisting illnesses, exam and lab findings the decision to treat as an outpatient was made. The patient remained stable while under my care. The patient appeared well at the time of discharge. Medical Decision Differential diagnosis includes etiologies such as benign positional vertigo, dehydration, hypovolemia, anemia, tumor, infection, hypoglycemia, electrolyte abnormalities, cardiac sources, intracerebral event, toxicologic, neurologic, as well as others were entertained. Patient is a 42-year-old female who presents to the ER for feeling very lightheaded, flushed and nauseous. She notes she was shaking and almost passed out. She remembers the entire event. She notes she does have mild shortness of breath and believes this is secondary to her asthma. She also has a little bit of a cough and runny nose. CBC alone BMP, LFTs, bilirubin and lipase was normal. Troponin was negative. D-dimer was negative. Influenza was negative. UA and was negative. Patient was updated at bedside. She was given a neb treatment and felt significantly better. He was discharged follow- up with PCP as an outpatient. Discussed with Pt concerning signs and symptoms to watch out for. Pt was instructed to follow up with their PCP and discussed with the patient their option to return to the ED at anytime for persistent or worsening symptoms. The appropriate anticipatory guidance and out-patient management, including indications for return to the emergency department, were explained at length to the patient and understood. Impression Primary Impression: Lightheaded Additional Impression: Viral URI Scribe Attestation The scribe's documentation has been prepared under my direction and personally reviewed by me in its entirety. I confirm that the note above accurately reflects all work, treatment, procedures, and medical decision making performed by me. Departure Information Dispostion Home / Self-Care Referrals Misty Wilson M.D. (MEDICAL) (PCP) Forms HOME CARE DOCUMENTATION FORM, IMPORTANT VISIT INFORMATION Patient Instructions My [facility] Additional Instructions Please follow up with your primary care doctor with in the next 24 hours. Any worsening of your symptoms, please return to the ED immediately. This includes any fevers greater than 100.4, worsening pain, chest pain, shortness breath, persistent nausea, vomiting, unable to eat or drink, or any other concerning signs or symptoms from your standpoint. No driving for the next 24 hours. Problem Qualifiers
== END 2017-10-02 20:34 | disposition home or self-care (01) ==
LOC: C.EDB 17:50 → C.EDC 20:34
DX: B34.9 Viral infection, unspecified (principal); J45.909 Unspecified asthma, uncomplicated; J44.9 Chronic obstructive pulmonary disease, unspecified; I10 Essential (primary) hypertension; Z87.440 Personal history of urinary (tract) infections; Z90.49 Acquired absence of other specified parts of digestive tract; Z98.51 Tubal ligation status; F17.210 Nicotine dependence, cigarettes, uncomplicated; Z80.9 Family history of malignant neoplasm, unspecified; Z83.3 Family history of diabetes mellitus; Z82.49 Family history of ischemic heart disease and other diseases of the circulatory system; Z79.899 Other long term (current) drug therapy

== ENCOUNTER 2019-06-26 10:52 | Inpatient (IN) ==
--- NOTE | 2019-06-26 11:18 | XRay Report ---
XR chest 1V portable CLINICAL HISTORY: 44 years-old Female presenting with Dyspnea. TECHNIQUE: Portable upright AP view of the chest was obtained. COMPARISON: 06/02/2018. FINDINGS: Cardiomediastinal silhouette normal. No focal opacity. No large effusion or pneumothorax. Osseous str uctures normal. Upper abdomen normal. IMPRESSION: 1. No acute cardiopulmonary disease. Electronically signed by: Keenan Jaeger M.D. 06/26/2019 11:17 AM
[2019-06-26 11:23] LABS: Base Excess VBG -0.5 mEq/L; Oxygen Saturation VBG 78.4 %; pH VBG 7.33 (7.36-7.41)
[2019-06-26 11:30] LABS: Basophils # (auto) 0.05 K/uL (0-0.2); Basophils % (auto) 0.4 %; Eosinophils # (auto) 0.47 K/uL (0-0.5); Eosinophils % (auto) 3.9 %; Hemoglobin 14.4 g/dL (12.0-16.0); Immature Granulocytes # (auto) 0.02 K/uL (0.00-0.02); Immature Granulocytes % (auto) 0.2 %; Lymphocytes # (auto) 2.26 K/uL (1.2-3.4); Lymphocytes % (auto) 18.9 %; Mean Corpuscular Hemoglobin 31.1 pg (25-34); Mean Corpuscular Hgb Conc 34.3 g/dL (32-36); Mean Corpuscular Volume 90.7 fL (80-100); Mean Platelet Volume 10.6 fL (7.4-10.4); Monocytes # (auto) 0.87 K/uL (0.11-0.59); Monocytes % (auto) 7.3 %; Neutrophils # (auto) 8.26 K/uL (1.4-6.5); Neutrophils % (auto) 69.3 %; Platelet Count 351 K/uL (130-400); RDW Coefficient of Variation 14.3 % (11.5-14.5); RDW Standard Deviation 47.6 fL (36.4-46.3); Red Blood Count 4.63 M/uL (4.2-5.4); White Blood Count 11.93 K/uL (4.8-10.8)
[2019-06-26 11:40] LABS: Partial Thromboplastin Ratio 0.9; Partial Thromboplastin Time 24.1 Seconds (21.0-31.0); Prothrombin Time 9.9 Seconds (9.0-12.0)
[2019-06-26 11:52] LABS: Albumin Level 3.3 gm/dl (3.4-5.0); BUN Creatinine Ratio 16.8 (10-20); Bilirubin,Total 0.2 mg/dl (0.2-1); Calcium 8.3 mg/dl (8.5-10.1); Creatinine Clr Calc Pharmacy 83.5 ml/min; Est GFR (African American) 109.8; Est GFR (Non-African American) 94.7; Globulin 3.2 gm/dl (2.5-4.0); Potassium 3.8 mmol/L (3.5-5.1); Total Protein 6.5 gm/dl (6.4-8.2)
[2019-06-26 11:55] LABS: Troponin I 0.032 ng/ml (0-0.045)
[2019-06-26] MEDS ORDERED: ALBUT/IPRATROP 3MG/0.5MG NEB 3 ML VIAL NEB STA (13:05)
--- NOTE | 2019-06-26 13:29 | Emergency Department Note ---
Entered by Natalie Jennings acting as a scribe for Thom Talley DO History of Present Illness General Chief complaint: Shortness of Breath/Dyspnea Time Seen by Provider: 06/26/19 10:59 Source: patient and EMS History of Present Illness Provider complaint: shortness of breath Onset (ago): day(s) 3 Location: chest Radiation: non-radiation Pain Consistency: + constant Quality: + other (diffiuclty breathing ) Associated symptoms: + denies other symptoms and + cough; no headaches The patient is a 44 y/o female who presents to the emergency department for evaluation of constant shortness of breath that began 3 days ago. The patient told the nurse that she is short of breath and is out of her medication that she normally takes for her shortness of breath. The nurse said that the patient denies a headache and has a cough. The EMS notes they found her wheezing and on 15 liters O2. The patient was having issues answering questions and opening her eyes. She denies any other symptoms. Home Medications Home Medications Medication Instructions Recorded Confirmed Type Excedrin Migraine 2 tab PO BID PRN 06/02/18 06/26/19 History albuterol sulfate 2 puff INHALATION Q6H PRN 06/02/18 06/26/19 History albuterol sulfate 2.5 mg INHALATION QID PRN 06/02/18 06/26/19 History ranitidine HCl [Zantac 75] 75 mg PO BID PRN 06/02/18 06/26/19 History sodium chloride [Saline Mist] 1 - 2 spray INTRANASAL DAILY PRN 06/02/18 06/26/19 History etodolac 300 mg PO TID PRN 04/30/19 06/26/19 History mometasone-formoterol [Dulera] 2 puff INHALATION BID 04/30/19 06/26/19 History montelukast [Singulair] 10 mg PO DAILY 04/30/19 06/26/19 History tiotropium bromide [Spiriva with 1 cap INHALATION DAILY 06/26/19 06/26/19 History HandiHaler] Allergies Allergy/AdvReac Type Severity Reaction Status Date / Time No Known Allergies Allergy Unverified 04/30/19 18:45 Past Med/Surg History Medical History Arthritis Asthma COPD (chronic obstructive pulmonary disease) Surgical History Previous section S/P cholecystectomy Tubal ligation status Family History Father Heart disease Hypertension Social History Preferred Language: Greek Communication Ability: Effective Guest Services Agent Required: No Beliefs That Will Affect Care: None Current Living Situation: Other Current Living Situation Comment: friend Other Information That Helps Us Care for You: No Feels Safe at Home: Yes Safety Concerns: Feels Safe At This Time Smoking Status: Current some day smoker Tobacco Type: cigarettes ; Cigarettes Per Day: unable to say ; Do You Dip or Chew Tobacco: No ; Second Hand Exposure: Yes ; Tobacco Cessation Education Requested by Patient: No Hx Alcohol Use: Yes Alcohol type: hard liquor Hx Substance Use: No Review of Systems See HPI for pertinent positives & negatives. and A total of 10 systems reviewed and were otherwise negative Physical Exam Vital Signs Vital Signs - 24 hr 06/26/19 11:00 06/26/19 12:13 06/26/19 13:17 Temperature 36.4 C L Temperature Source Oral Pulse Rate 104 H Pulse Rate [Apical] 86 86 Pulse Rate from SpO2 Sensor Pulse Rhythm Regular Pulse Rhythm [Apical] Regular Pulse Strength Normal Pulse Strength [Apical] Normal Respiratory Rate 30 H 20 22 Respiratory Effort / Characteristics Spontaneous Accessory Muscle Use Labored Non-Labored Spontaneous Non-Labored Spontaneous Respiratory Depth Normal Normal Respiratory Pattern Regular Regular Blood Pressure 148/94 H Blood Pressure [Right Arm] 146/104 H Blood Pressure Mean 112 Blood Pressure Mean [Right Arm] 118 Blood Pressure Position Sitting Blood Pressure Position [Right Arm] Sitting Pulse Oximetry 96 94 94 Oxygen Delivery Method Nasal Cannula Nasal Cannula Nasal Cannula Oxygen Flow Rate 4 2 3 Sepsis Recent Fever Within 48 Hours No Sepsis New/Unexplained Change in Mental Status No Sepsis Action Taken by Nursing No Action Required 06/26/19 13:53 06/26/19 14:30 06/26/19 15:00 Temperature Temperature Source Pulse Rate 102 H 90 100 H Pulse Rate [Apical] 102 H Pulse Rate from SpO2 Sensor 91 H 98 H Pulse Rhythm Regular Pulse Rhythm [Apical] Regular Pulse Strength Pulse Strength [Apical] Normal Respiratory Rate 20 21 22 Respiratory Effort / Characteristics Non-Labored Spontaneous Respiratory Depth Normal Respiratory Pattern Regular Blood Pressure 147/93 H 146/100 H Blood Pressure [Right Arm] 142/97 H Blood Pressure Mean 116 124 Blood Pressure Mean [Right Arm] 112 Blood Pressure Position Blood Pressure Position [Right Arm] Sitting Pulse Oximetry 93 93 92 Oxygen Delivery Method Room Air Nasal Cannula Oxygen Flow Rate 2 2 Sepsis Recent Fever Within 48 Hours Sepsis New/Unexplained Change in Mental Status Sepsis Action Taken by Nursing GENERAL: The patient is awake and somewhat anxious appearing. EYES: The conjunctivae are clear. The pupils are round and reactive. EARS, NOSE, MOUTH AND THROAT: The nose is without any evidence of any deformity. Mucous membranes are moist tongue is midline NECK: The neck is nontender and supple. RESPIRATORY: Shallow respirations were noted. There was wheezing and diminished breath sounds noted throughout. Mild tachypnea was noted. CARDIOVASCULAR: Regular rate and rhythm noted there no murmurs rubs or gallops normal S1 normal S2 GASTROINTESTINAL: The abdomen is soft. The abdomen is nontender. MUSCULOSKELETAL/EXTREMITIES: There is no evidence of gross deformity full range of motion is noted in the hips and shoulders SKIN: There is no obvious evidence of any rash. There are no petechiae, pallor o r cyanosis noted. NEUROLOGIC: Patient is oriented x3 strength is symmetric patellar reflexes are 2+ bilaterally Course Course 1102: Past medical records reviewed. The patient was evaluated in room C09. A complete history and physical exam was performed. 1310: we gave the patient another breathing treatment. 1430: I spoke with Chrissie Thomason. She will evaluate for further management. Administered Medications Doxycycline Hyclate 100 mg/ (Dextrose) 110 mls @ 50 mls/hr IV BID ADELE; Protocol Stop: 07/03/19 16:59 Last Admin: 06/26/19 17:31 Dose: 50 mls/hr Documented by: [id number] Sodium Chloride (Nss 1000ml) 1,000 mls @ 80 mls/hr IV .[id number] [facility] Stop: 07/26/19 16:32 Last Admin: 06/26/19 16:57 Dose: 80 mls/hr Documented by: [id number] Methylprednisolone 40 mg/ (Syringe) 0.64 mls @ 1.5 mls/min IV Q8H ADELE Stop: 07/26/19 16:59 Last Admin: 06/26/19 17:31 Dose: 1.5 mls/min Documented by: [id number] Discontinued Medications Acetaminophen (Tylenol) Confirm Administered Dose 1,000 mg .ROUTE .STK-MED ONE Stop: 06/26/19 13:56 Last Admin: 06/26/19 13:56 Dose: 1,000 mg Documented by: [id number] Albuterol (Duoneb) 3 ml NEB NOW STA Stop: 06/26/19 13:06 Last Admin: 06/26/19 13:17 Dose: 3 ml Documented by: [id number] Medical Decision Making Differential Diagnosis Differential diagnosis: Etiologies such as infections, reactive airway disease, COPD, pneumonia, pleural effusion, pulmonary edema, ARDS, pneumothorax, CHF, cardiac ischemia, cardiac tamponade, dysrhythmia, anemia, pulmonary embolism, musculoskeletal, gastrointestinal process, as well as others were entertained. Medical Records Attestation: I reviewed the patient's medical records. Home Medications Current Medication List: was personally reviewed by me Laboratory Data Attestation: I reviewed the patient's lab results. Result diagrams: 06/26/19 11:11 06/26/19 11:11 Lab Results 06/26/19 06/26/19 06/26/19 Range/Units 11:11 11:11 11:11 WBC 11.93 H (4.8-10.8) K/uL RBC 4.63 (4.2-5.4) M/uL Hgb 14.4 (12.0-16.0) g/dL Hct 42.0 (37-47) % MCV 90.7 (80-100) fL MCH 31.1 (25-34) pg MCHC 34.3 (32-36) g/dL RDW Std Deviation 47.6 H (36.4-46.3) fL RDW Coeff of Ahmet 14.3 (11.5-14.5) % Plt Count 351 (130-400) K/uL MPV 10.6 H (7.4-10.4) fL Immature Gran % (Auto) 0.2 % Neut % (Auto) 69.3 % Lymph % (Auto) 18.9 % Addison % (Auto) 7.3 % Eos % (Auto) 3.9 % Baso % (Auto) 0.4 % Immature Gran # (Auto) 0.02 (0.00-0.02) K/uL Neut # (Auto) 8.26 H (1.4-6.5) K/uL Lymph # (Auto) 2.26 (1.2-3.4) K/uL Addison # (Auto) 0.87 H (0.11-0.59) K/uL Eos # (Auto) 0.47 (0-0.5) K/uL Baso # (Auto) 0.05 (0-0.2) K/uL PT 9.9 (9.0-12.0) Seconds INR 1.0 (0.9-1.1) APTT 24.1 (21.0-31.0) Seconds PTT Ratio 0.9 VBG pH (7.36-7.41) VBG pCO2 (38-50) mmHg VBG pO2 mmHg VBG HCO3 mmol/L VBG O2 Saturation % VBG Base Excess mEq/L Barometric Pressure mm/Hg Sodium 138 (136-145) mmol/L Potassium 3.8 (3.5-5.1) mmol/L Chloride 108 H (98-107) mmol/L Carbon Dioxide 25 (21-32) mmol/L Anion Gap 5.0 (3-11) BUN 13 (7-18) mg/dl Creatinine 0.76 (0.6-1.2) mg/dl Est Cr Clr Drug Dosing 83.5 ml/min Est GFR ( Amer) 109.8 Est GFR (Non-Af Amer) 94.7 BUN/Creatinine Ratio 16.8 (10-20) Glucose 146 H (70-99) mg/dl Calcium 8.3 L (8.5-10.1) mg/dl Total Bilirubin 0.2 (0.2-1) mg/dl AST 9 L (15-37) U/L ALT 29 (12-78) U/L Alkaline Phosphatase 39 L (45-117) U/L Troponin I 0.032 (0-0.045) ng/ml Total Protein 6.5 (6.4-8.2) gm/dl Albumin 3.3 L (3.4-5.0) gm/dl Globulin 3.2 (2.5-4.0) gm/dl Albumin/Globulin Ratio 1.0 (0.9-2) 06/26/19 Range/Units 11:11 WBC (4.8-10.8) K/uL RBC (4.2-5.4) M/uL Hgb (12.0-16.0) g/dL Hct (37-47) % MCV (80-100) fL MCH (25-34) pg MCHC (32-36) g/dL RDW Std Deviation (36.4-46.3) fL RDW Coeff of Ahmet (11.5-14.5) % Plt Count (130-400) K/uL MPV (7.4-10.4) fL Immature Gran % (Auto) % Neut % (Auto) % Lymph % (Auto) % Addison % (Auto) % Eos % (Auto) % Baso % (Auto) % Immature Gran # (Auto) (0.00-0.02) K/uL Neut # (Auto) (1.4-6.5) K/uL Lymph # (Auto) (1.2-3.4) K/uL Addison # (Auto) (0.11-0.59) K/uL Eos # (Auto) (0-0.5) K/uL Baso # (Auto) (0-0.2) K/uL PT (9.0-12.0) Seconds INR (0.9-1.1) APTT (21.0-31.0) Seconds PTT Ratio VBG pH 7.33 L (7.36-7.41) VBG pCO2 51 H (38-50) mmHg VBG pO2 46 mmHg VBG HCO3 26 mmol/L VBG O2 Saturation 78.4 % VBG Base Excess -0.5 mEq/L Barometric Pressure 736.1 mm/Hg Sodium (136-145) mmol/L Potassium (3.5-5.1) mmol/L Chloride (98-107) mmol/L Carbon Dioxide (21-32) mmol/L Anion Gap (3-11) BUN (7-18) mg/dl Creatinine (0.6-1.2) mg/dl Est Cr Clr Drug Dosing ml/min Est GFR ( Amer) Est GFR (Non-Af Amer) BUN/Creatinine Ratio (10-20) Glucose (70-99) mg/dl Calcium (8.5-10.1) mg/dl Total Bilirubin (0.2-1) mg/dl AST (15-37) U/L ALT (12-78) U/L Alkaline Phosphatase (45-117) U/L Troponin I (0-0.045) ng/ml Total Protein (6.4-8.2) gm/dl Albumin (3.4-5.0) gm/dl Globulin (2.5-4.0) gm/dl Albumin/Globulin Ratio (0.9-2) Imaging Data Radiologist's Impression: Radiology results as stated below per my review and the radiologist's interpretation: XR chest 1V portable CLINICAL HISTORY: 44 years-old Female presenting with Dyspnea. TECHNIQUE: Portable upright AP view of the chest was obtained. COMPARISON: 06/02/2018. FINDINGS: Cardiomediastinal silhouette normal. No focal opacity. No large effusion or pneumothorax. Osseous structures normal. Upper abdomen normal. IMPRESSION: 1. No acute cardiopulmonary disease. Electronically signed by: Keenan Jaeger M.D. 06/26/2019 11:17 AM ECG Data Attestation: I personally reviewed and interpreted this ECG as follows: Indication: + SOB/dyspnea Rate (beats per minute): 98 Rhythm: + normal sinus ECG ST segments: no ST depression and no ST elevation ECG Findings: no PACs and no PVCs Comparison ECG Date: from (06/04/18) Change: no significant change Blood Pressure Blood Pressure Findings: Elevated blood pressure Blood Pressure Disposition: Referred to patients primary care provider MDM Narrative The patient is a 44-year-old female who presented to the emergency department for an evaluation of difficulty breathing. The patient has a history of asthma with COPD as well. She was treated with multiple bronchodilator treatments as well as IV Solu-Medrol prior to arrival by the EMS personnel. The patient was further treated with bronchodilator nebulizers in the emergency department. She was placed on submental oxygen. The patient was reevaluated multiple times. She was feeling much better on subsequent reevaluation and was much more awake but had oxygen saturations that had dropped into the 80s off of supplement oxyge n. This reason I discussed her case with the on-call [facility] hospitalist group. They have agreed to evaluate the patient in the emergency department for further management disposition. Impression & Plan Asthma exacerbation, Hypoxia, Respiratory acidosis Discharge Plan Visit Data *Final* Discharge Date/Time: 06/26/19 15:52 Chief Complaint: Shortness of Breath/Dyspnea ED Provider: Thom Talley Discharge Problem: Asthma exacerbation, Hypoxia, Respiratory acidosis Patient Disposition: Admitted As Inpatient Discharge Instructions Interventions: ED Discharge Assessment Last Done: 06/26/19 15:52 The scribe's documentation has been prepared under my direction and personally reviewed by me in its entirety. I confirm that the note above accurately reflects all work, treatment, procedures, and medical decision making performed by me.
[2019-06-26] MEDS ORDERED: ACETAMINOPHEN 500 MG TAB ONE (13:55)
[2019-06-26] MEDS ORDERED: ACETAMINOPHEN 325 MG TAB PO PRN (16:33)
[2019-06-26 16:36] LABS: Influenza A virus by PCR Neg for Influ A (Neg); Influenza B virus by PCR Neg for Influ B (Neg)
--- NOTE | 2019-06-26 16:37 | History & Physical Report ---
Date of Service June 26, 2019 Assessment & Plan (1) Asthma with COPD with exacerbation: (2) Acute respiratory failure with hypoxia: -Admit to telemetry -Patient presenting with reports of increasing shortness of breath, wheezing, cough for the past few days; patient had run out of her inhalers at home -In the ED, she was saturating in the low 80s on room air, which improved with 2 L of oxygen via nasal cannula and nebulizer treatment -IV steroids, [id number] nebs -Empiric doxycycline -Pulmonary toilet with incentive spirometry and flutter valve -CXR negative for acute cardiopulmonary findings, check influenza swab -Wean O2 as able (3) DVT prophylaxis: -SCDs, ambulate History of Present Illness Chief Complaint: Shortness of breath, cough Primary Care Provider: Fannie Garcia PA-C 44-year-old female who presents to the ED for evaluation of shortness of breath and cough. Patient has history of asthma and COPD. Reports she ran out of all of her inhalers a few days ago. Reports she has had increasing shortness of breath and wheezing. She also has had a cough productive for escobedo/yellow sputum at times. She has been using her nebulizer about 5 times daily without any improvement in her symptoms. She denies fevers and chills. No chest pain. Denies lightheadedness, dizziness, diaphoresis, syncopal event. No abdominal pain, nausea, vomiting, diarrhea. She denies any urinary symptoms. In the ED, patient was saturating in the low 80s on room air. This improved with 2 L of oxygen via nasal cannula and nebulizer treatment. She also received IV Solu- Medrol for EMS. Labs are unremarkable and CXR is negative for acute cardiopulmonary findings. Allergies Allergy/AdvReac Type Severity Reaction Status Date / Time No Known Allergies Allergy Unverified 04/30/19 18:45 Home Medications Home Medications Medication Instructions Recorded Confirmed Type Excedrin Migraine 2 tab PO BID PRN 06/02/18 06/26/19 History albuterol sulfate 2 puff INHALATION Q6H PRN 06/02/18 06/26/19 History albuterol sulfate 2.5 mg INHALATION QID PRN 06/02/18 06/26/19 History ranitidine HCl [Zantac 75] 75 mg PO BID PRN 06/02/18 06/26/19 History sodium chloride [Saline Mist] 1 - 2 spray INTRANASAL DAILY PRN 06/02/18 06/26/19 History etodolac 300 mg PO TID PRN 04/30/19 06/26/19 History mometasone-formoterol [Dulera] 2 puff INHALATION BID 04/30/19 06/26/19 History montelukast [Singulair] 10 mg PO DAILY 04/30/19 06/26/19 History tiotropium bromide [Spiriva with 1 cap INHALATION DAILY 06/26/19 06/26/19 History HandiHaler] Past Med/Surg History Medical History Arthritis Asthma COPD (chronic obstructive pulmonary disease) Surgical History Previous section S/P cholecystectomy Tubal ligation status Family History Father Heart disease Hypertension Social History Preferred Language: Occitan Communication Ability: Effective 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 Beliefs That Will Affect Care: None Current Living Situation: Other Current Living Situation Comment: friend Other Information That Helps Us Care for You: No Feels Safe at Home: Yes Safety Concerns: Feels Safe At This Time Smoking Status: Current some day smoker Tobacco Type: cigarettes ; Cigarettes Per Day: unable to say ; Do You Dip or Chew Tobacco: No ; Second Hand Exposure: Yes ; Tobacco Cessation Education Requested by Patient: No Hx Alcohol Use: Yes Alcohol type: hard liquor Hx Substance Use: No Review of Systems Review of Systems: ROS per HPI, all other systems reviewed and negative Physical Exam Constitutional: WD/WN, vitals as above Eyes: PERRL, conjunctivae normal, anicteric sclerae ENMT: external ear and nose normal, oropharynx normal Respiratory: able to speak in complete sentences and + tachypneic; no respiratory distress Auscultation: + wheezes (Diffuse, expiratory) Cardiovascular: Rate/Rhythm: regular rhythm and + tachycardic (HR low 100s) Vessels: normal peripheral pulses Extremities: no edema Gastrointestinal (Abdomen): normal bowel sounds, soft, nontender, no hepatosplenomegaly Musculoskeletal: no cyanosis or clubbing, extremities motor strength 5/5 Skin: no rashes, warm and dry Neurologic: PERRL, EOMI, accommodation nl, no face palsy, no dysarthria Psychiatric: A+Ox3, euthymic affect Results & Data Vital Signs (Past 12 Hours) Vital Signs Temp Pulse Pulse Resp BP BP Pulse Ox 06/26/19 15:30 94 H 30 H 147/110 H 93 06/26/19 15:00 100 H 22 146/100 H 92 06/26/19 14:30 90 21 147/93 H 93 06/26/19 13:53 102 H 102 H 20 142/97 H 93 06/26/19 13:17 86 22 94 06/26/19 12:13 86 20 146/104 H 94 06/26/19 11:00 36.4 C L 104 H 30 H 148/94 H 96 Laboratory Results Short CBC 06/26/19 Range/Units 11:11 WBC 11.93 H (4.8-10.8) K/uL Hgb 14.4 (12.0-16.0) g/dL Hct 42.0 (37-47) % Plt Count 351 (130-400) K/uL BMP 06/26/19 11:11 Sodium 138 Potassium 3.8 Chloride 108 H Carbon Dioxide 25 BUN 13 Creatinine 0.76 Glucose 146 H Calcium 8.3 L Cardiac Enzymes 06/26/19 Range/Units 11:11 Troponin I 0.032 (0-0.045) ng/ml Liver Function 06/26/19 Range/Units 11:11 Total Bilirubin 0.2 (0.2-1) mg/dl AST 9 L (15-37) U/L ALT 29 (12-78) U/L Alkaline Phosphatase 39 L (45-117) U/L Albumin 3.3 L (3.4-5.0) gm/dl Diagnostic Findings CXR IMPRESSION: 1. No acute cardiopulmonary disease. Code Status & VTE Plan VTE Prophylaxis Plan VTE Prophylaxis will be ordered: Yes Supervising Physician Co-Signing Physician Notes Attending addendum: The patient was seen and examined in the emergency room She has been complaining of more shortness of breath since this morning Associate with wheezing and cough and she keeps on smoking Has been feeling better since admission On examination Lying in bed comfortably with minimal shortness of breath at rest Hemodynamically stable Chest-decreased breath sound with him widespread wheezing Heart-S1-S2, regular Abdomen-benign Extremities-negative for any edema Admission labs and imaging studies reviewed, Has exacerbation of asthma/COPD with bronchitis Agree with assessment and plan as outlined above by Chrissie ordoñez
[2019-06-26] MEDS: SODIUM CHLORIDE 0.9% 1000ML 1,000 ML IV SCH (16:57)
[2019-06-26] MEDS: methylPREDNISolone 40 MG in SYRINGE 0 ML IV SCH (17:31)
[2019-06-26] MEDS: DOXYCYCLINE HYCLATE 100 MG in DEXTROSE 5% 100 ML IV SCH (17:31)
[2019-06-26] MEDS: ALBUT/IPRATROP 3MG/0.5MG NEB 3 ML VIAL NEB SCH ×2 (19:22→23:47)
[2019-06-27] MEDS: DULERA - ORDER AWAITING ACTION SCH ×2 (00:45→08:51)
[2019-06-27] MEDS: methylPREDNISolone 40 MG in SYRINGE 0 ML IV SCH ×3 (00:45→17:27)
[2019-06-27] MEDS: ALBUT/IPRATROP 3MG/0.5MG NEB 3 ML VIAL NEB SCH ×4 (07:03→18:59)
[2019-06-27] MEDS: MONTELUKAST SODIUM 10 MG TABLET PO SCH (08:30)
[2019-06-27] MEDS: DOXYCYCLINE HYCLATE 100 MG in DEXTROSE 5% 100 ML IV SCH ×2 (08:34→21:58)
[2019-06-27] MEDS: SODIUM CHLORIDE 0.9% 1000ML 1,000 ML IV SCH ×2 (08:50→17:27)
--- NOTE | 2019-06-27 15:23 | Hospitalist Progress Note ---
Date of Service June 27, 2019 Assessment & Plan (1) Asthma with COPD with exacerbation: (2) Acute respiratory failure with hypoxia: Secondary to noncompliance with inhalers due to insurance issues CXR:No acute cardiopulmonary disease. Continue IV Solu-Medrol, duo nebs, Singulair, doxycycline Continue pulmonary hygiene Wean off oxygen to keep sats greater than 88% Case management consulted to help with insurance (3) DVT prophylaxis: SCDs, ambulate CODE STATUS Full code Disposition Expect to discharge home when medically stable Subjective Patient is seen and examined at bedside Complaints of cough, shortness of breath, wheezing Denies any chest pain, nausea, abdominal pain Admits to being noncompliant with inhaler secondary to insurance issues Office no other complaints Review of Systems Review of Systems: All systems reviewed & are unremarkable except as noted in HPI & below Physical Exam Physical Exam: Physical Exam: Vitals signs as noted above General Appearance:Moderately built and nourished, no apparent distress Head: normocephalic, Atraumatic Eyes: normal inspection, EOMI Neck: supple, Trachea midline Respiratory/Chest: Decreased breath sounds, B/L wheezing Cardiovascular: S1, S2, No murmur Abdomen/GI:Soft, Non tender, Bowel sounds present Extremities/Musculoskelatal:normal inspection, no edema Neurologic/Psych:AAOX3, grossly no focal neurological deficits Skin: normal color, warm Results & Data Vital Signs (Past 12 Hours) Vital Signs Temp Pulse Pulse Resp BP Pulse Ox 06/27/19 15:02 94 H 20 96 06/27/19 11:12 107 H 20 96 06/27/19 11:04 36.8 C 83 20 136/87 95 06/27/19 07:38 36.9 C 98 H 18 142/67 H 96 06/27/19 07:03 74 19 92 06/27/19 04:34 36.4 C L 87 22 146/89 H 93
[2019-06-27] MEDS: FLUTICASONE/SALMETEROL 250/50 (ADVAIR) 14 PUFF/1 INHALER INH SCH (21:53)
[2019-06-28] MEDS: methylPREDNISolone 40 MG in SYRINGE 0 ML IV SCH ×2 (01:52→08:34)
[2019-06-28 05:56] LABS: Hemoglobin 13.9 g/dL (12.0-16.0); Mean Corpuscular Hemoglobin 30.8 pg (25-34); Mean Corpuscular Hgb Conc 33.9 g/dL (32-36); Mean Corpuscular Volume 90.7 fL (80-100); Mean Platelet Volume 10.9 fL (7.4-10.4); Platelet Count 368 K/uL (130-400); RDW Coefficient of Variation 14.4 % (11.5-14.5); RDW Standard Deviation 48.2 fL (36.4-46.3); Red Blood Count 4.52 M/uL (4.2-5.4); White Blood Count 21.34 K/uL (4.8-10.8)
[2019-06-28 06:23] LABS: BUN Creatinine Ratio 13.7 (10-20); Calcium 8.6 mg/dl (8.5-10.1); Creatinine Clr Calc Pharmacy 93.4 ml/min; Est GFR (African American) 121.8; Est GFR (Non-African American) 105.1; Potassium 3.8 mmol/L (3.5-5.1)
[2019-06-28] MEDS: ALBUT/IPRATROP 3MG/0.5MG NEB 3 ML VIAL NEB SCH ×4 (07:07→19:24)
[2019-06-28] MEDS: DOXYCYCLINE HYCLATE 100 MG in DEXTROSE 5% 100 ML IV SCH (08:33)
[2019-06-28] MEDS: FLUTICASONE/SALMETEROL 250/50 (ADVAIR) 14 PUFF/1 INHALER INH SCH ×2 (08:34→20:52)
[2019-06-28] MEDS: BENZONATATE 100 MG CAPSULE PO PRN ×2 (08:34→22:48)
[2019-06-28] MEDS: MONTELUKAST SODIUM 10 MG TABLET PO SCH (08:34)
--- NOTE | 2019-06-28 14:45 | Hospitalist Progress Note ---
Date of Service June 28, 2019 Assessment & Plan (1) Asthma with COPD with exacerbation: (2) Acute respiratory failure with hypoxia: Secondary to noncompliance with inhalers due to insurance issues CXR:No acute cardiopulmonary disease. Taper down IV Solu-Medrol Continue duo nebs, Singulair, doxycycline Continue pulmonary hygiene Weaned off of oxygen, saturating well on room air Case management consulted to help with insurance (3) DVT prophylaxis: SCDs, ambulate CODE STATUS Full code Disposition Expect to discharge home when medically stable Subjective Patient is seen and examined at bedside States feeling tired today Cough, shortness of breath, wheezing improved Denies any chest pain, nausea, abdominal pain Review of Systems Review of Systems: All systems reviewed & are unremarkable except as noted in HPI & below Physical Exam Physical Exam: Physical Exam: Vitals signs as noted above General Appearance:Moderately built and nourished, no apparent distress Head: normocephalic, Atraumatic Eyes: normal inspection, EOMI Neck: supple, Trachea midline Respiratory/Chest: Decreased breath sounds, minimal wheezes Cardiovascular: S1, S2, No murmur Abdomen/GI:Soft, Non tender, Bowel sounds present Extremities/Musculoskelatal:normal inspection, no edema Neurologic/Psych:AAOX3, grossly no focal neurological deficits Skin: normal color, warm Results & Data Vital Signs (Past 12 Hours) Vital Signs Temp Pulse Pulse Resp BP Pulse Ox 06/28/19 11:31 36.6 C 89 18 146/80 H 93 06/28/19 11:16 82 18 94 06/28/19 07:41 36.8 C 85 18 148/96 H 91 06/28/19 07:07 93 H 16 95 06/28/19 03:55 36.5 C 74 18 130/97 93 06/28/19 03:41 100 H Laboratory Results Short CBC 06/28/19 Range/Units 05:10 WBC 21.34 H (4.8-10.8) K/uL Hgb 13.9 (12.0-16.0) g/dL Hct 41.0 (37-47) % Plt Count 368 (130-400) K/uL BMP 06/28/19 05:10 Sodium 140 Potassium 3.8 Chloride 107 Carbon Dioxide 26 BUN 9 Creatinine 0.69 Glucose 120 H Calcium 8.6
[2019-06-28] MEDS ORDERED: methylPREDNISolone 40 MG in SYRINGE 0 ML IV ONE (17:00)
[2019-06-28] MEDS: DOXYCYCLINE HYCLATE 100 MG CAP PO SCH (20:53)
[2019-06-28] MEDS: SODIUM CHLORIDE 0.9% 1000ML 1,000 ML IV SCH (23:37)
[2019-06-29] MEDS: ALBUT/IPRATROP 3MG/0.5MG NEB 3 ML VIAL NEB SCH (07:10)
[2019-06-29 07:33] LABS: BUN Creatinine Ratio 15.8 (10-20); Calcium 8.7 mg/dl (8.5-10.1); Est GFR (African American) 117.2; Est GFR (Non-African American) 101.1; Potassium 3.6 mmol/L (3.5-5.1)
[2019-06-29] MEDS ORDERED: predniSONE 20 MG TAB PO SCH (09:00)
[2019-06-29] MEDS: FLUTICASONE/SALMETEROL 250/50 (ADVAIR) 14 PUFF/1 INHALER INH SCH (09:13)
[2019-06-29] MEDS: DOXYCYCLINE HYCLATE 100 MG CAP PO SCH (09:14)
[2019-06-29] MEDS: MONTELUKAST SODIUM 10 MG TABLET PO SCH (09:15)
[2019-06-29] MEDS ORDERED: ALBUT/IPRATROP 3MG/0.5MG NEB 3 ML VIAL NEB PRN (09:45)
[2019-06-29] MEDS ORDERED: TIOTROPIUM BROMIDE 5 PUFF/90 MCG INH INH SCH (09:45)
[2019-06-29] MEDS ORDERED: ALBUTEROL HFA 8 GM INHALER INH PRN (09:50)
[2019-06-29 11:17] VITALS: TEMP 98.2; O2SAT 96
--- NOTE | 2019-06-29 12:32 | Hospitalist Progress Note ---
Date of Service June 29, 2019 Assessment & Plan (1) Asthma with COPD with exacerbation: (2) Acute respiratory failure with hypoxia: Secondary to noncompliance with inhalers due to insurance issues CXR:No acute cardiopulmonary disease. Taper down IV Solu-Medrol to Prednisone Continue duonebs, Singulair, doxycycline Continue pulmonary hygiene Saturating well on room air Case management consulted to help with insurance Tobacco use disorder Advised to quit smoking Elevated Blood pressure Likely situational --( in family); Steroids could be contributing Asymptomatic Monitor for now Advise to follow up with PCP (3) DVT prophylaxis: SCDs, ambulate CODE STATUS Full code Disposition Plan to discharge home today Subjective Patient is seen and examined at bedside Doing much better today Cough much improved Denies shortness of breath, chest pain, nausea , abd pain Review of Systems Review of Systems: All systems reviewed & are unremarkable except as noted in HPI & below Physical Exam Physical Exam: Physical Exam: Vitals signs as noted above General Appearance:Moderately built and nourished, no apparent distress Head: normocephalic, Atraumatic Eyes: normal inspection, EOMI Neck: supple, Trachea midline Respiratory/Chest: Decreased breath sounds, CTA Cardiovascular: S1, S2, No murmur Abdomen/GI:Soft, Non tender, Bowel sounds present Extremities/Musculoskelatal:normal inspection, no edema Neurologic/Psych:AAOX3, grossly no focal neurological deficits Skin: normal color, warm Results & Data Vital Signs (Past 12 Hours) Vital Signs Temp Pulse Resp BP Pulse Ox 06/29/19 11:15 36.8 C 76 17 150/97 H 96 06/29/19 07:42 36.6 C 88 18 150/99 H 92 06/29/19 07:11 67 20 93 06/29/19 05:12 36.8 C 74 20 151/86 H 96 Laboratory Results [facility] 06/29/19 06:36 Sodium 140 Potassium 3.6 Chloride 105 Carbon Dioxide 29 BUN 11 Creatinine 0.72 Glucose 101 H Calcium 8.7
--- NOTE | 2019-06-29 13:06 | Discharge Summary ---
Date of Service June 29, 2019 Admission HPI Per Admitting Provider 44-year-old female who presents to the ED for evaluation of shortness of breath and cough. Patient has history of asthma and COPD. Reports she ran out of all of her inhalers a few days ago. Reports she has had increasing shortness of breath and wheezing. She also has had a cough productive for escobedo/yellow sputum at times. She has been using her nebulizer about 5 times daily without any improvement in her symptoms. She denies fevers and chills. No chest pain. Denies lightheadedness, dizziness, diaphoresis, syncopal event. No abdominal pain, nausea, vomiting, diarrhea. She denies any urinary symptoms. In the ED, patient was saturating in the low 80s on room air. This improved with 2 L of oxygen via nasal cannula and nebulizer treatment. She also received IV Solu- Medrol for EMS. Labs are unremarkable and CXR is negative for acute cardiopulmonary findings. Admission Exam Per Admitting Provider Physical Exam Constitutional: WD/WN, vitals as above Eyes: PERRL, conjunctivae normal, anicteric sclerae ENMT: external ear and nose normal, oropharynx normal Respiratory: able to speak in complete sentences and + tachypneic; no respiratory distress Auscultation: + wheezes (Diffuse, expiratory) Cardiovascular: Rate/Rhythm: regular rhythm and + tachycardic (HR low 100s) Vessels: normal peripheral pulses Extremities: no edema Gastrointestinal (Abdomen): normal bowel sounds, soft, nontender, no hepatosplenomegaly Musculoskeletal: no cyanosis or clubbing, extremities motor strength 5/5 Skin: no rashes, warm and dry Neurologic: PERRL, EOMI, accommodation nl, no face palsy, no dysarthria Psychiatric: A+Ox3, euthymic affect Principal Diagnosis Acute asthma/COPD exacerbation Hypoxia Discharge Data Allergies Allergy/AdvReac Type Severity Reaction Status Date / Time No Known Allergies Allergy Unverified 04/30/19 18:45 Consultations 06/26/19 14:30 ED Decision to Admit Stat Procedures Performed CXR:No acute cardiopulmonary disease. Hospital Course (1) Asthma with COPD with exacerbation: (2) Acute respiratory failure with hypoxia: Secondary to noncompliance with inhalers due to insurance issues CXR:No acute cardiopulmonary disease. Taper down IV Solu-Medrol to Prednisone Continue duonebs, Singulair, doxycycline Continue pulmonary hygiene Saturating well on room air Case management consulted to help with insurance Tobacco use disorder Advised to quit smoking Elevated Blood pressure Likely situational --( in family); Steroids could be contributing Asymptomatic Monitor for now Advise to follow up with PCP (3) DVT prophylaxis: SCDs, ambulate CODE STATUS Full code Disposition Plan to discharge home today Total Time Total Time Spent Total Time Spent (In Minutes): 39 Discharge Plan Discharge Items Patient Disposition: Home - Self-Care Reason For Visit: ASTHMA EXACERBATION,HYPOXIA Discharge Diagnosis: Acute asthma/COPD exacerbation Hypoxia Activity: Resume your previous activity Exercise/Sports: Gradually increase as tolerated Non-emergency contact: Primary Care Provider Call non-emergency contact if: you have any medication questions, your symptoms worsen, your pain is not controlled, your pain is worsening, your pain is unusual for you, your pain is concerning for you and you have a fever Follow-up/Referrals: Fannie Garcia PA-C [Primary Care Provider] - Diet: Regular Addtl Attending Provider Instructions: Follow-up with your primary care physician Dr. Frederick valentino on July 02, 2019 at 1:00 PM Complete the antibiotic(doxycycline) and prednisone course as prescribed Use inhalers regularly as advised Quit smoking tobacco Check your blood pressure regularly. Follow-up with your physician for management of high blood pressure if persistent. Seek immediate medical attention if your symptoms reoccur or worsen Pending Studies at Discharge: No Stand-Alone Forms: My [facility], Smoking Cessation Medications and DC Order Prescriptions: New fluticasone propion-salmeterol [Advair Diskus] 250-50 mcg/dose Blister With Device 1 puff inhalation BID Qty: 1 RF: 1 doxycycline hyclate 100 mg Capsule 100 mg PO BID Qty: 4 RF: 0 Spiriva with HandiHaler 18 mcg Capsule, W/Inhalation Device 1 puff inhalation DAILY Qty: 1 RF: 1 prednisone 20 mg tablet 40 mg PO DAILY Qty: 6 RF: 0 Continued albuterol sulfate 2.5 mg /3 mL (0.083 %) Solution For Nebulization 2.5 mg INHALATION QID PRN (Reason: Shortness Of Breath Or Wheezing) RF: 0 ranitidine HCl [Zantac 75] 75 mg Tablet 75 mg PO BID PRN (Reason: Acid Reflux) RF: 0 Excedrin Migraine 250-250-65 mg Tablet 2 tab PO BID PRN (Reason: Migraine Headache) RF: 0 sodium chloride [Saline Mist] 0.65 % Aerosol,[place] 1 - 2 spray INTRANASAL DAILY PRN (Reason: Nasal Congestion) RF: 0 etodolac 300 mg capsule 300 mg PO TID PRN (Reason: Pain) RF: 0 montelukast [Singulair] 10 mg tablet 10 mg PO DAILY Qty: 30 RF: 1 albuterol sulfate 90 mcg/actuation Hfa Aerosol Inhaler 2 puff INHALATION Q6H PRN (Reason: Shortness Of Breath Or Wheezing) Qty: 1 RF: 1 Discontinued Dulera 100-5 mcg/actuation HFA aerosol inhaler 2 puff inhalation BID RF: 0 Spiriva with HandiHaler 18 mcg capsule, w/inhalation device 1 cap INHALATION DAILY RF: 0 Discharge Orders: Discharge Order (Routine); Ordered 06/29/19 Ordered By: Cruzito Boaetng Admission Data Admit Date/Time: 06/26/19 15:02 Attending Provider: Cruzito Boateng Admit Provider: Abhi Eldridge Primary Care Provider: Fannie Garcia Other Providers: Abhi Eldridge Other Interventions: Discharge Summary Assessment (RN) Last Done: 06/29/19 13:17 DC Date/Time DO NOT enter until pt leaves facility: 06/29/19 13:32
[2019-06-29 13:18] VITALS: BP 141/103; PULSE 94
== END 2019-06-29 13:32 | disposition home or self-care (01) | DRG 190 ==
LOC: ED 10:52 → SUATTDRO 15:02 → 2E 15:02

== ENCOUNTER 2020-04-04 17:51 | Inpatient (IN) ==
[2020-04-04] MEDS ORDERED: ALBUT/IPRATROP 3MG/0.5MG NEB 3 ML VIAL NEB STA (18:34)
[2020-04-04] MEDS ORDERED: ONDANSETRON INJ 2 MG/ML 2 ML VIAL IV STA (18:34)
--- NOTE | 2020-04-04 18:43 | Emergency Department Note ---
Impression & Plan Precordial chest pain, Syncope, Unresponsive episode, Elevated troponin ED Provider Note NAME: LUCIAN BRODY AGE: 44 SEX: F : 1975 ARRIVES VIA: Ambulance INFORMANT: [Patient][ems] ED PROVIDER(S): [Mike Valentin MD] CHIEF COMPLAINT: Unresponsive episode HISTORY OF PRESENT ILLNESS: The patient is a 44-year-old female presents to the ER by EMS for an unresponsiv e episode. The patient states that she was fine today, she went to work. When she came home, she laid down. She began feeling some tightness in her chest and felt she needed a nebulizer treatment. She started the treatment and then, she believes she passed out. She denies any drug use, she denies alcohol use. The patient states that she is not sure exactly why she passed out but she remembers that this happened 1 time before when she was short of breath. The patient has been in baseline health. There has been no fever, chills, cough or congestion. No urinary complaints. As per EMS, the patient had small pupils when they arrived, they gave 2 mg of Narcan intranasally. The patient promptly woke up and began vomiting. He was given Zofran sublingual on the way here. The patient states that she is still somewhat nauseated. REVIEW OF SYSTEMS: See HPI for pertinent positives and negatives. A total of ten systems were reviewed and were otherwise negative. PMHx/PSHx: See Below SOCIAL HISTORY: See Below. PHYSICAL EXAM: GENERAL: Patient is in no acute distress. HEENT: No acute trauma, normocephalic atraumatic, mucous membranes moist, no nasal congestion, no scleral icterus. NECK: No stridor, no adenopathy, no meningismus, trachea is midline. LUNGS: Diminished breath sounds with some scattered wheezing bilaterally, breath sounds are equal, no respiratory distress. HEART: Without murmurs gallops or rubs, regular rate and rhythm. ABDOMEN: Soft, nontender, bowel sounds positive, no hernias, no peritonitis. EXTREMITIES: No cyanosis or edema, full range of motion of all the joints without pain or difficulty, no signs for acute trauma. NEUROLOGIC: Oriented x 3, no acute motor or sensory deficits, no focal weakness. SKIN: No rash, no jaundice, no diaphoresis. DIFFERENTIAL DIAGNOSIS: Infection, dehydration, metabolic abnormality, drug or alcohol abuse, arrhythmia, hypo/hyperglycemia, electrolyte disturbance, anemia, hypoxia, cardi ac sources, intracerebral event, toxicologic, neurologic, as well as other pathologies. EMERGENCY DEPARTMENT COURSE/PROCEDURES: ECG: Indication was potential syncope. The ECG shows a normal sinus rhythm with a rate of 86. There is no ST elevation, no PVCs. The QTc is 457. Continuous Cardiac Monitoring: An order was placed for continuous cardiac monitoring. The monitor shows a rate of 91 with normal sinus rhythm. MEDICAL DECISION MAKING: There is a moderate leukocytosis, the patient has a history of the same. There is no anemia. There is a normal platelet count. No significant electrolyte abnormality or kidney failure. AST mildly elevated, the remaining liver enzymes were unremarkable. Patient appeared to be in a euthyroid state. Urinalysis did not show any evidence for infection. Urine tox was negative. Alcohol level was undetectable. ECG shows a sinus rhythm, no acute ischemia. Cardiac enzyme testing x1 is elevated, this elevation could be consistent with dysrhythmia or cardiac strain/injury. Chest film did not show pneumonia or CHF. Chest CT did not show any evidence for PE, a bronchitis was suspected. The thoracic aorta was unremarkable in appearance. The patient was given IV saline, 1 L. She received IV Zofran for nausea. She received oral aspirin and a DuoNeb. The patient presents with a syncopal episode that started with some chest tightness/pain. She does have cardiac risk factors. She has an elevated troponin on work-up. I am concerned about cardiac injury/dysrhythmia. I do not think she can be discharged home safely. I spoke to the patient and case management. The on-call hospitalist was consulted. Of note, the patient did apparently respond to Narcan as per EMS. Certainly narcotic overdose is a consideration here, however, her urine tox is negative for opiates. Past Med/Surg History Medical History Arthritis Asthma COPD (chronic obstructive pulmonary disease) Surgical History Previous section S/P cholecystectomy Tubal ligation status Family History Father Heart disease Hypertension Social History Smoking Status: Current every day smoker Tobacco Type: Cigarettes Cigarettes Per Day: unable to say; Second Hand Exposure: Yes; Hx Alcohol Use: Yes Alcohol type: hard liquor Hx Substance Use: No Preferred Language: Belarusian Communication Ability: Effective Compensation And Benefits Analyst Required: No Beliefs That Will Affect Care: None Current Living Situation: Other Current Living Situation Comment: friend Feels Safe at Home: Yes Allergies Allergies Allergy/AdvReac Type Severity Reaction Status Date / Time No Known Allergies Allergy Unverified 04/04/20 21:28 Home Meds Home Medications Medication Instructions Recorded Confirmed Excedrin Migraine 2 tab PO BID PRN 06/02/18 04/04/20 albuterol sulfate 2.5 mg INHALATION QID PRN 06/02/18 04/04/20 ibuprofen 600 mg PO Q6H PRN 04/04/20 04/04/20 loratadine 10 mg PO DAILY PRN 04/04/20 04/04/20 Previous Rx's Medication Instructions Recorded albuterol sulfate 2 puff INHALATION Q6H PRN #1 06/29/19 inhaler Results & Data (ED) Vital Signs Vital Signs - 24 hr 04/04/20 18:00 04/04/20 18:02 04/04/20 18:04 Temperature 36.5 C Temperature Source Oral Pulse Rate 92 H 94 H 92 H Pulse Rate [Right Radial] Pulse Rate from SpO2 Sensor 91 H 93 H Respiratory Rate 9 L 16 13 Respiratory Effort / Characteristics Non-Labored Spontaneous Respiratory Depth Normal Respiratory Pattern Regular Blood Pressure 125/80 132/75 Blood Pressure Mean 100 94 Pulse Oximetry 92 94 92 Oxygen Delivery Method Room Air Room Air Room Air Sepsis Recent Fever Within 48 Hours No Sepsis New/Unexplained Change in Mental Status N/A Sepsis Action Taken by Nursing No Action Required 04/04/20 18:10 04/04/20 18:20 04/04/20 18:30 Temperature Temperature Source Pulse Rate 92 H 89 87 Pulse Rate [Right Radial] Pulse Rate from SpO2 Sensor 92 H 89 87 Respiratory Rate 10 L 13 15 Respiratory Effort / Characteristics Respiratory Depth Respiratory Pattern Blood Pressure 121/79 Blood Pressure Mean 105 Pulse Oximetry 90 94 93 Oxygen Delivery Method Room Air Room Air Room Air Sepsis Recent Fever Within 48 Hours Sepsis New/Unexplained Change in Mental Status Sepsis Action Taken by Nursing 04/04/20 18:31 04/04/20 18:40 04/04/20 18:41 Temperature Temperature Source Pulse Rate 98 H 90 Pulse Rate [Right Radial] Pulse Rate from SpO2 Sensor 97 H 91 H Respiratory Rate 16 23 Respiratory Effort / Characteristics Respiratory Depth Respiratory Pattern Blood Pressure Blood Pressure Mean Pulse Oximetry 92 93 Oxygen Delivery Method Room Air Room Air Room Air Sepsis Recent Fever Within 48 Hours Sepsis New/Unexplained Change in Mental Status Sepsis Action Taken by Nursing 04/04/20 18:49 04/04/20 19:00 04/04/20 20:56 Temperature Temperature Source Pulse Rate 85 91 H Pulse Rate [Right Radial] 88 Pulse Rate from SpO2 Sensor 87 91 H Respiratory Rate 16 21 19 Respiratory Effort / Characteristics Non-Labored Spontaneous Respiratory Depth Respiratory Pattern Blood Pressure 128/81 Blood Pressure Mean 96 Pulse Oximetry 96 100 95 Oxygen Delivery Method Room Air Sepsis Recent Fever Within 48 Hours Sepsis New/Unexplained Change in Mental Status Sepsis Action Taken by [facility] Medications Current Medication List: was personally reviewed by me Laboratory Data Attestation: I reviewed the patient's lab results. Result diagrams: 04/04/20 18:49 04/04/20 18:49 Lab Results 04/04/20 04/04/20 04/04/20 Range/Units 18:49 18:49 18:49 WBC 18.19 H (4.8-10.8) K/uL RBC 4.73 (4.2-5.4) M/uL Hgb 14.6 (12.0-16.0) g/dL Hct 42.9 (37-47) % MCV 90.7 (80-100) fL MCH 30.9 (25-34) pg MCHC 34.0 (32-36) g/dL RDW Std Deviation 45.3 (36.4-46.3) fL RDW Coeff of Ahmet 13.6 (11.5-14.5) % Plt Count 359 (130-400) K/uL MPV 10.0 (7.4-10.4) fL Immature Gran % (Auto) 0.3 % Neut % (Auto) 83.7 % Lymph % (Auto) 8.0 % [place] % (Auto) 6.9 % Eos % (Auto) 0.9 % Baso % (Auto) 0.2 % Neut # (Auto) 15.24 H (1.4-6.5) K/uL Lymph # (Auto) 1.45 (1.2-3.4) K/uL [place] # (Auto) 1.26 H (0.11-0.59) K/uL Eos # (Auto) 0.16 (0-0.5) K/uL Baso # (Auto) 0.03 (0-0.2) K/uL Immature Gran # (Auto) 0.05 H (0.00-0.02) K/uL Sodium 138 (136-145) mmol/L Potassium 4.3 (3.5-5.1) mmol/L Chloride 104 (98-107) mmol/L Carbon Dioxide 30 (21-32) mmol/L Anion Gap 5.0 (3-11) BUN 12 (7-18) mg/dl Creatinine 0.87 (0.6-1.2) mg/dl Est Cr Clr Drug Dosing 78.5 ml/min Est GFR ( Amer) 93.2 Est GFR (Non-Af Amer) 80.5 BUN/Creatinine Ratio 14.2 (10-20) Glucose 77 (70-99) mg/dl Calcium 9.1 (8.5-10.1) mg/dl Magnesium 2.4 (1.8-2.4) mg/dl Total Bilirubin 0.2 (0.2-1) mg/dl AST 60 H (15-37) U/L ALT 46 (12-78) U/L Alkaline Phosphatase 45 (45-117) U/L Total Creatine Kinase 545 H (26-192) U/L Troponin I 0.145 H* (0-0.045) ng/ml Total Protein 7.6 (6.4-8.2) gm/dl Albumin 3.8 (3.4-5.0) gm/dl Globulin 3.8 (2.5-4.0) gm/dl Albumin/Globulin Ratio 1.0 (0.9-2) TSH 3.410 (0.300-4.500) uIu/ml Specimen Hemolysis Urine Color Urine Appearance (Clear) Urine pH (4.5-7.5) Ur Specific [place] (1.000-1.030) Urine Protein (Negative) Urine Glucose (UA) (Negative) Urine Ketones (Negative) Urine Blood (Negative) Urine Nitrite (Negative) Urine Bilirubin (Negative) Urine Urobilinogen (Negative) Ur Leukocyte Esterase (Negative) Urine WBC (Auto) (0-5) /hpf Urine RBC (Auto) (0-4) /hpf U Hyaline Cast (Auto) (0-5) /lpf U Epithel Cells (Auto) (0-5) /lpf Urine Bacteria (Auto) (Negative) Urine Opiates Screen (Neg) Ur Methadone, Qual (Neg) Urine Barbiturates (Neg) Ur Phencyclidine (PCP) (Neg) U Amphetamin/Meth Scrn (Neg) MDMA (Ecstasy) Screen (Neg) U Benzodiazepines Scrn (Neg) Ur Cocaine Metabolite (Neg) U Marijuana (THC) Screen (Neg) Ethyl Alcohol mg/dL < 3.0 (0-3) mg/dl COVID-19 Eval Order 04/04/20 04/04/20 04/04/20 Range/Units 18:49 19:54 19:54 WBC (4.8-10.8) K/uL RBC (4.2-5.4) M/uL Hgb (12.0-16.0) g/dL Hct (37-47) % MCV (80-100) fL MCH (25-34) pg MCHC (32-36) g/dL RDW Std Deviation (36.4-46.3) fL RDW Coeff of Ahmet (11.5-14.5) % Plt Count (130-400) K/uL MPV (7.4-10.4) fL Immature Gran % (Auto) % Neut % (Auto) % Lymph % (Auto) % [place] % (Auto) % Eos % (Auto) % Baso % (Auto) % Neut # (Auto) (1.4-6.5) K/uL Lymph # (Auto) (1.2-3.4) K/uL [place] # (Auto) (0.11-0.59) K/uL Eos # (Auto) (0-0.5) K/uL Baso # (Auto) (0-0.2) K/uL Immature Gran # (Auto) (0.00-0.02) K/uL Sodium (136-145) mmol/L Potassium (3.5-5.1) mmol/L Chloride (98-107) mmol/L Carbon Dioxide (21-32) mmol/L Anion Gap (3-11) BUN (7-18) mg/dl Creatinine (0.6-1.2) mg/dl Est Cr Clr Drug Dosing ml/min Est GFR ( Amer) Est GFR (Non-Af Amer) BUN/Creatinine Ratio (10-20) Glucose (70-99) mg/dl Calcium (8.5-10.1) mg/dl Magnesium (1.8-2.4) mg/dl Total Bilirubin (0.2-1) mg/dl AST (15-37) U/L ALT (12-78) U/L Alkaline Phosphatase (45-117) U/L Total Creatine Kinase Cancelled (26-192) U/L Troponin I (0-0.045) ng/ml Total Protein (6.4-8.2) gm/dl Albumin (3.4-5.0) gm/dl Globulin (2.5-4.0) gm/dl Albumin/Globulin Ratio (0.9-2) TSH (0.300-4.500) uIu/ml Specimen Hemolysis Urine Color Yellow Urine Appearance Clear (Clear) Urine pH 7.0 (4.5-7.5) Ur Specific [place] 1.015 (1.000-1.030) Urine Protein 1+ H (Negative) Urine Glucose (UA) Negative (Negative) Urine Ketones Negative (Negative) Urine Blood 1+ H (Negative) Urine Nitrite Negative (Negative) Urine Bilirubin Negative (Negative) Urine Urobilinogen Negative (Negative) Ur Leukocyte Esterase Negative (Negative) Urine WBC (Auto) 1-5 (0-5) /hpf Urine RBC (Auto) 5-10 H (0-4) /hpf U Hyaline Cast (Auto) 1-5 (0-5) /lpf U Epithel Cells (Auto) 20-30 H (0-5) /lpf Urine Bacteria (Auto) Negative (Negative) Urine Opiates Screen Neg (Neg) Ur Methadone, Qual Neg (Neg) Urine Barbiturates Neg (Neg) Ur Phencyclidine (PCP) Neg (Neg) U Amphetamin/Meth Scrn Neg (Neg) MDMA (Ecstasy) Screen Neg (Neg) U Benzodiazepines Scrn Neg (Neg) Ur Cocaine Metabolite Neg (Neg) U Marijuana (THC) Screen Neg (Neg) Ethyl Alcohol mg/dL (0-3) mg/dl COVID-19 Eval Order 08/30/20 Range/Units 21:32 WBC (4.8-10.8) K/uL RBC (4.2-5.4) M/uL Hgb (12.0-16.0) g/dL Hct (37-47) % MCV (80-100) fL MCH (25-34) pg MCHC (32-36) g/dL RDW Std Deviation (36.4-46.3) fL RDW Coeff of Ahmet (11.5-14.5) % Plt Count (130-400) K/uL MPV (7.4-10.4) fL Immature Gran % (Auto) % Neut % (Auto) % Lymph % (Auto) % [place] % (Auto) % Eos % (Auto) % Baso % (Auto) % Neut # (Auto) (1.4-6.5) K/uL Lymph # (Auto) (1.2-3.4) K/uL [place] # (Auto) (0.11-0.59) K/uL Eos # (Auto) (0-0.5) K/uL Baso # (Auto) (0-0.2) K/uL Immature Gran # (Auto) (0.00-0.02) K/uL Sodium (136-145) mmol/L Potassium (3.5-5.1) mmol/L Chloride (98-107) mmol/L Carbon Dioxide (21-32) mmol/L Anion Gap (3-11) BUN (7-18) mg/dl Creatinine (0.6-1.2) mg/dl Est Cr Clr Drug Dosing ml/min Est GFR ( Amer) Est GFR (Non-Af Amer) BUN/Creatinine Ratio (10-20) Glucose (70-99) mg/dl Calcium (8.5-10.1) mg/dl Magnesium (1.8-2.4) mg/dl Total Bilirubin (0.2-1) mg/dl AST (15-37) U/L ALT (12-78) U/L Alkaline Phosphatase (45-117) U/L Total Creatine Kinase (26-192) U/L Troponin I (0-0.045) ng/ml Total Protein (6.4-8.2) gm/dl Albumin (3.4-5.0) gm/dl Globulin (2.5-4.0) gm/dl Albumin/Globulin Ratio (0.9-2) TSH (0.300-4.500) uIu/ml Specimen Hemolysis Urine Color Urine Appearance (Clear) Urine pH (4.5-7.5) Ur Specific [place] (1.000-1.030) Urine Protein (Negative) Urine Glucose (UA) (Negative) Urine Ketones (Negative) Urine Blood (Negative) Urine Nitrite (Negative) Urine Bilirubin (Negative) Urine Urobilinogen (Negative) Ur Leukocyte Esterase (Negative) Urine WBC (Auto) (0-5) /hpf Urine RBC (Auto) (0-4) /hpf U Hyaline Cast (Auto) (0-5) /lpf U Epithel Cells (Auto) (0-5) /lpf Urine Bacteria (Auto) (Negative) Urine Opiates Screen (Neg) Ur Methadone, Qual (Neg) Urine Barbiturates (Neg) Ur Phencyclidine (PCP) (Neg) U Amphetamin/Meth Scrn (Neg) MDMA (Ecstasy) Screen (Neg) U Benzodiazepines Scrn (Neg) Ur Cocaine Metabolite (Neg) U Marijuana (THC) Screen (Neg) Ethyl Alcohol mg/dL (0-3) mg/dl COVID-19 Eval Order Covid19 Done at [facility] Administered Medications Discontinued Medications Albuterol (Albut/Ipratrop 3mg/0.5mg Neb 3 Ml Vial) 3 ml NEB NOW STA Stop: 04/04/20 18:35 Last Admin: 04/04/20 18:47 Dose: 3 ml Documented by: [id number] Aspirin (Aspirin Chew 324 Mg) 324 mg PO NOW STA Stop: 04/04/20 19:40 Last Admin: 04/04/20 19:50 Dose: 324 mg Documented by: [id number] Sodium Chloride (Nss 1000ml) 1,000 mls @ 999 mls/hr IV .Q1H1M ADELE Stop: 04/04/20 19:45 Last Infusion: 04/04/20 19:51 Dose: 0 mls/hr Documented by: [id number] Admin: 04/04/20 18:47 Dose: 999 mls/hr Documented by: [id number] Ioversol (Ioversol 100ml) 118 ml IV ONCE ONE Stop: 04/04/20 20:16 Last Admin: 04/04/20 20:15 Dose: 118 ml Documented by: [id number] Ondansetron HCl (Ondansetron Inj 2 Mg/Ml 2 Ml Vial) 4 mg IV NOW STA Stop: 04/04/20 18:35 Last Admin: 04/04/20 18:47 Dose: 4 mg Documented by: [id number] Imaging Data Radiologist's Impression: XR chest 1V portable CLINICAL HISTORY: weakness COMPARISON STUDY: 06/26/2019 FINDINGS: The cardiac and mediastinal contours are normal. There is no evidence of focal pulmonary consolidation. There is no evidence of failure. No pleural effusions are visualized.[ IMPRESSION: No active disease in the chest. CTA of the chest: There is no evidence for any filling defect to suggest a pulmonary embolism. There is an aberrant right subclavian artery. The thoracic aorta is within normal limits. There is no pericardial or pleural effusion. There is a potential bronchitis in the lungs. No focal lung consolidation. There is a sclerotic focus of the posterior left T4 vertebral body/pedicle which is not significantly changed. Blood Pressure Blood Pressure Findings: Elevated blood pressure Blood Pressure Disposition: further management by hospitalist Head Trauma GCS Score: 15 Discharge Plan Visit Data Chief Complaint: Overdose (Intentional) ED Provider: Mike Valentin Discharge Problem: Precordial chest pain, Syncope, Unresponsive episode, Elevated troponin Patient Disposition: Admitted As Inpatient Condition: Good Forms Stand Alone Forms: [facility], Suicide Prevention Resources Prescriptions Prescriptions: No Action albuterol sulfate 2.5 mg /3 mL (0.083 %) Solution For Nebulization 2.5 mg INHALATION QID PRN (Reason: Shortness Of Breath Or Wheezing) RF: 0 Excedrin Migraine 250-250-65 mg Tablet 2 tab PO BID PRN (Reason: Migraine Headache) RF: 0 albuterol sulfate 90 mcg/actuation Hfa Aerosol Inhaler 2 puff INHALATION Q6H PRN (Reason: Shortness Of Breath Or Wheezing) Qty: 1 RF: 1 ibuprofen 200 mg Tablet 600 mg PO Q6H PRN (Reason: Headache) RF: 0 loratadine 10 mg Tablet 10 mg PO DAILY PRN (Reason: Allergy Symptoms) RF: 0 Referrals Referrals: Mingear,Fannie A., PA-C [Primary Care Provider] - Discharge Problem: Syncope Qualifiers: Syncope type: unspecified Qualified Code(s): R55 - Syncope and collapse
[2020-04-04] MEDS ORDERED: SODIUM CHLORIDE 0.9% 1000ML 1,000 ML IV SCH (18:45)
[2020-04-04 18:59] LABS: Basophils # (auto) 0.03 K/uL (0-0.2); Basophils % (auto) 0.2 %; Eosinophils # (auto) 0.16 K/uL (0-0.5); Eosinophils % (auto) 0.9 %; Hematocrit (blood only) 42.9 % (37-47); Hemoglobin 14.6 g/dL (12.0-16.0); Immature Granulocytes # (auto) 0.05 K/uL (0.00-0.02); Immature Granulocytes % (auto) 0.3 %; Lymphocytes # (auto) 1.45 K/uL (1.2-3.4); Mean Corpuscular Hemoglobin 30.9 pg (25-34); Mean Corpuscular Volume 90.7 fL (80-100); Monocytes # (auto) 1.26 K/uL (0.11-0.59); Monocytes % (auto) 6.9 %; Neutrophils # (auto) 15.24 K/uL (1.4-6.5); Neutrophils % (auto) 83.7 %; Platelet Count 359 K/uL (130-400); RDW Coefficient of Variation 13.6 % (11.5-14.5); RDW Standard Deviation 45.3 fL (36.4-46.3); Red Blood Count 4.73 M/uL (4.2-5.4); White Blood Count 18.19 K/uL (4.8-10.8)
[2020-04-04 19:27] LABS: Albumin Level 3.8 gm/dl (3.4-5.0); BUN Creatinine Ratio 14.2 (10-20); Calcium 9.1 mg/dl (8.5-10.1); Creatinine Clr Calc Pharmacy 78.5 ml/min; Est GFR (African American) 93.2; Est GFR (Non-African American) 80.5; Magnesium 2.4 mg/dl (1.8-2.4); Potassium 4.3 mmol/L (3.5-5.1)
--- NOTE | 2020-04-04 19:31 | XRay Report ---
XR chest 1V portable CLINICAL HISTORY: weakness COMPARISON STUDY: 06/26/2019 FINDINGS: The cardiac and mediastinal contours are normal. There is no evidence of focal pulmonary co nsolidation. There is no evidence of failure. No pleural effusions are visualized.[ IMPRESSION: No active disease in the chest. ACT 112: Negative or not required by law. Electronically signed by: Jaleel Villalobos M.D. 04/04/2020 7:30 PM
[2020-04-04 19:37] LABS: Bilirubin,Total 0.2 mg/dl (0.2-1); Globulin 3.8 gm/dl (2.5-4.0); Thyroid Stimulating Hormone 3.41 uIu/ml (0.300-4.500); Total Protein 7.6 gm/dl (6.4-8.2); Troponin I 0.145 ng/ml (0-0.045)
[2020-04-04] MEDS ORDERED: ASPIRIN CHEW 324 MG PO STA (19:39)
[2020-04-04 20:06] LABS: Appearance Urine Clear (Clear); Bacteria Urine Automated Negative (Negative); Bilirubin Urine Negative (Negative); Blood Urine 1+ (Negative); Color Urine Yellow; Epithelial Cell Urine Auto 20-30 /lpf (0-5); Glucose Urine UA Negative (Negative); Ketones Urine Negative (Negative); Leukocyte Esterase Urine Negative (Negative); Nitrite Urine Negative (Negative); Protein Urine 1+ (Negative); Specific Gravity Urine 1.015 (1.000-1.030); Urobilinogen Urine Negative (Negative)
[2020-04-04] MEDS ORDERED: IOVERSOL 100ml IV ONE (20:15)
[2020-04-04 20:31] LABS: Amphetamines+Metham, Urine Neg (Neg); Barbiturates, Urine Neg (Neg); Benzodiazepine, Urine Neg (Neg); Cocaine, Urine Neg (Neg); MDMA (Ecstacy), Urine Neg (Neg); Methadone, Urine Neg (Neg); Opiate, Urine Neg (Neg); Phencyclidine, Urine Neg (Neg)
--- NOTE | 2020-04-04 21:57 | History & Physical Report ---
Date of Service April 04, 2020 Assessment & Plan (1) Unresponsive episode: Syncopal event secondary to bronchospasm from sickle exacerbation ? Clandestine narcotic use Troponin elevation secondary to above, mild rhabdomyolysis Ongoing tobacco abuse OBS Medical telemetry Short course prednisone, nebs RTC for now for COPD laceration No indication for antibiotic Rx for now Follow troponin, CPK IVF Orthostatic vitals, TTE for syncope work-up DVT prophylaxis. Lovenox subcu Full code Text document was generated using [employer] voice recognition software. It may contain grammatical or spelling errors. Kindly contact undersigned for clarification of any documentation item in question. History of Present Illness Chief Complaint: Unresponsiveness Primary Care Provider: Dr. Montgomery History obtained from patient and records. Medical history significant for COPD, ongoing tobacco abuse. Last confinement June 2019 for COPD exacerbation, ongoing tobacco abuse. 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 Chest tightness, shortness of breath, not fully relieved by home rescue inhaler. No headache at time of event. No unusual cough symptoms. Patient subsequently passed out. Patient found by boyfriend unresponsive. EMS summoned to patient's home. Patient found to be unresponsive with pinpoint pupils and respirations of 10. O2 sats 80s on room air. Narcan administered by EMS. Patient subsequently woke up and started vomiting. Patient denies narcotic intake. At the ER, patient received Solu-Medrol, neb treatment for asthma exacerbation. Aspirin given for troponin elevation. Patient currently feels better. 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[employer] Allergies Allergy/AdvReac Type Severity Reaction Status Date / Time No Known Allergies Allergy Unverified 04/04/20 21:28 Home Medications Home Medications Medication Instructions Recorded Confirmed Type Excedrin Migraine 2 tab PO BID PRN 06/02/18 04/04/20 History albuterol sulfate 2.5 mg INHALATION QID PRN 06/02/18 04/04/20 History albuterol sulfate 2 puff INHALATION Q6H PRN #1 06/29/19 04/04/20 Rx inhaler ibuprofen 600 mg PO Q6H PRN 04/04/20 04/04/20 History loratadine 10 mg PO DAILY PRN 04/04/20 04/04/20 History Past Med/Surg History Medical History Arthritis Asthma COPD (chronic obstructive pulmonary disease) Surgical History Previous section S/P cholecystectomy Tubal ligation status Family History Father Heart disease Hypertension Social History Smoking Status: Current every day smoker Tobacco Type: Cigarettes Cigarettes Per Day: unable to say; Second Hand Exposure: Yes; Hx Alcohol Use: Yes Alcohol type: hard liquor Hx Substance Use: No Preferred Language: Palauan Communication Ability: Effective Shearer Helper Required: No Beliefs That Will Affect Care: None Current Living Situation: Other Current Living Situation Comment: friend Feels Safe at Home: Yes Review of Systems Review of Systems: As per HPI, all 10 systems reviewed, all other ROS negative Physical Exam Physical Exam: GENERAL: Comfortable, slightly anxious, obese, no respiratory distress SKIN: Normal color, warm HEENT: [place] palpebral conjunctivae, no ptosis, dry buccal mucosa NECK : Supple, no tenderness CHEST : Decreased breath sounds, expiratory wheezes, no tenderness HEART : RRR, no obvious murmurs ABDOMEN: Some distention, nontender EXTREMITIES : No LE swelling/tenderness, no other conspicuous deformities noted NEUROLOGIC : Coherent, no facial asymmetry, no other gross focality Results & Data Results & Data ([facility]) Vital Signs (Past 12 Hours) Vital Signs Temp Pulse Pulse Resp BP Pulse Ox 04/04/20 20:56 91 H 19 128/81 95 04/04/20 19:00 85 21 100 04/04/20 18:49 88 16 96 04/04/20 18:40 90 23 93 04/04/20 18:31 98 H 16 92 04/04/20 18:30 87 15 121/79 93 04/04/20 18:20 89 13 94 04/04/20 18:10 92 H 10 L 90 04/04/20 18:04 92 H 13 92 04/04/20 18:02 36.5 C 94 H 16 132/75 94 04/04/20 18:00 92 H 9 L 125/80 92 Laboratory Results Laboratory Results WBC 18.19 K/uL (4.8-10.8) H 04/04/20 18:49 RBC 4.73 M/uL (4.2-5.4) 04/04/20 18:49 Hgb 14.6 g/dL (12.0-16.0) 04/04/20 18:49 Hct 42.9 % (37-47) 04/04/20 18:49 MCV 90.7 fL (80-100) 04/04/20 18:49 MCH 30.9 pg (25-34) 04/04/20 18:49 MCHC 34.0 g/dL (32-36) 04/04/20 18:49 RDW Std Deviation 45.3 fL (36.4-46.3) 04/04/20 18:49 RDW Coeff of Ahmet 13.6 % (11.5-14.5) 04/04/20 18:49 Plt Count 359 K/uL (130-400) 04/04/20 18:49 MPV 10.0 fL (7.4-10.4) 04/04/20 18:49 Immature Gran % (Auto) 0.3 % 04/04/20 18:49 Neut % (Auto) 83.7 % 04/04/20 18:49 Lymph % (Auto) 8.0 % 04/04/20 18:49 [place] % (Auto) 6.9 % 04/04/20 18:49 Eos % (Auto) 0.9 % 04/04/20 18:49 Baso % (Auto) 0.2 % 04/04/20 18:49 Neut # (Auto) 15.24 K/uL (1.4-6.5) H 04/04/20 18:49 Lymph # (Auto) 1.45 K/uL (1.2-3.4) 04/04/20 18:49 [place] # (Auto) 1.26 K/uL (0.11-0.59) H 04/04/20 18:49 Eos # (Auto) 0.16 K/uL (0-0.5) 04/04/20 18:49 Baso # (Auto) 0.03 K/uL (0-0.2) 04/04/20 18:49 Immature Gran # (Auto) 0.05 K/uL (0.00-0.02) H 04/04/20 18:49 Sodium 138 mmol/L (136-145) 04/04/20 18:49 Potassium 4.3 mmol/L (3.5-5.1) 04/04/20 18:49 Chloride 104 mmol/L (98-107) 04/04/20 18:49 Carbon Dioxide 30 mmol/L (21-32) 04/04/20 18:49 Anion Gap 5.0 (3-11) 04/04/20 18:49 BUN 12 mg/dl (7-18) 04/04/20 18:49 Creatinine 0.87 mg/dl (0.6-1.2) 04/04/20 18:49 Est Cr Clr Drug Dosing 78.5 ml/min 04/04/20 18:49 Est GFR ( Amer) 93.2 04/04/20 18:49 Est GFR (Non-Af Amer) 80.5 04/04/20 18:49 BUN/Creatinine Ratio 14.2 (10-20) 04/04/20 18:49 Glucose 77 mg/dl (70-99) 04/04/20 18:49 Calcium 9.1 mg/dl (8.5-10.1) 04/04/20 18:49 Magnesium 2.4 mg/dl (1.8-2.4) 04/04/20 18:49 Total Bilirubin 0.2 mg/dl (0.2-1) 04/04/20 18:49 AST 60 U/L (15-37) H 04/04/20 18:49 ALT 46 U/L (12-78) 04/04/20 18:49 Alkaline Phosphatase 45 U/L (45-117) 04/04/20 18:49 Total Creatine Kinase 545 U/L (26-192) H 04/04/20 18:49 Total Creatine Kinase Cancelled 04/04/20 18:49 Troponin I 0.145 ng/ml (0-0.045) H* 04/04/20 18:49 Total Protein 7.6 gm/dl (6.4-8.2) 04/04/20 18:49 Albumin 3.8 gm/dl (3.4-5.0) 04/04/20 18:49 Globulin 3.8 gm/dl (2.5-4.0) 04/04/20 18:49 Albumin/Globulin Ratio 1.0 (0.9-2) 04/04/20 18:49 TSH 3.410 uIu/ml (0.300-4.500) 04/04/20 18:49 Specimen Hemolysis 04/04/20 18:49 Urine Color Yellow 04/04/20 19:54 Urine Appearance Clear (Clear) 04/04/20 19:54 Urine pH 7.0 (4.5-7.5) 04/04/20 19:54 Ur Specific [place] 1.015 (1.000-1.030) 04/04/20 19:54 Urine Protein 1+ (Negative) H 04/04/20 19:54 Urine Glucose (UA) Negative (Negative) 04/04/20 19:54 Urine Ketones Negative (Negative) 04/04/20 19:54 Urine Blood 1+ (Negative) H 04/04/20 19:54 Urine Nitrite Negative (Negative) 04/04/20 19:54 Urine Bilirubin Negative (Negative) 04/04/20 19:54 Urine Urobilinogen Negative (Negative) 04/04/20 19:54 Ur Leukocyte Esterase Negative (Negative) 04/04/20 19:54 Urine WBC (Auto) 1-5 /hpf (0-5) 04/04/20 19:54 Urine RBC (Auto) 5-10 /hpf (0-4) H 04/04/20 19:54 U Hyaline Cast (Auto) 1-5 /lpf (0-5) 04/04/20 19:54 U Epithel Cells (Auto) 20-30 /lpf (0-5) H 04/04/20 19:54 Urine Bacteria (Auto) Negative (Negative) 04/04/20 19:54 Urine Opiates Screen Neg (Neg) 04/04/20 19:54 Ur Methadone, Qual Neg (Neg) 04/04/20 19:54 Urine Barbiturates Neg (Neg) 04/04/20 19:54 Ur Phencyclidine (PCP) Neg (Neg) 04/04/20 19:54 U Amphetamin/Meth Scrn Neg (Neg) 04/04/20 19:54 MDMA (Ecstasy) Screen Neg (Neg) 04/04/20 19:54 U Benzodiazepines Scrn Neg (Neg) 04/04/20 19:54 Ur Cocaine Metabolite Neg (Neg) 04/04/20 19:54 U Marijuana (THC) Screen Neg (Neg) 04/04/20 19:54 Ethyl Alcohol mg/dL < 3.0 mg/dl (0-3) 04/04/20 18:49 COVID-19 Eval Order Covid19 Done at [facility] 04/04/20 21:32 Diagnostic Findings CTA chest initial read: No pulmonary embolism. Aberrant right subclavian artery. Thoracic aorta within normal limits. No pericardial or pleural effusion. Bronchial wall thickening at bilateral lower lobes may represent bronchitis. No focal consolidation. EKG as per my interpretation : Rate 85, NSR, normal axis, T wave abnormalities lateral leads
[2020-04-04 22:02] LABS: Partial Thromboplastin Ratio 0.9; Partial Thromboplastin Time 24.4 Seconds (21.0-31.0)
[2020-04-04 22:12] LABS: Troponin I 0.347 ng/ml (0-0.045)
[2020-04-04] MEDS ORDERED: SODIUM CHLORIDE 0.9% 1000ML 1,000 ML IV STA (22:50)
[2020-04-05] MEDS ORDERED: PROMETHAZINE HCL 12.5 MG in SODIUM CHLORIDE 0.9% 50 ML IV PRN (00:18)
[2020-04-05] MEDS ORDERED: LORazepam 0.25 MG/0.5 ML VIAL IV PRN (00:18)
[2020-04-05] MEDS ORDERED: IBUPROFEN 200 MG TAB PO PRN (00:18)
[2020-04-05] MEDS ORDERED: XOPENEX/ATROVENT 1.25mg/0.5MG NEB COMBO NEB SCH (01:00)
[2020-04-05] MEDS: IPRATROPIUM BROMIDE NEB SOLN 0.02% 2.5 ML VIAL INH SCH ×4 (01:16→19:14)
[2020-04-05] MEDS: LEVALBUTEROL 1.25MG/0.5ML NEB INH SCH ×4 (01:17→19:14)
[2020-04-05] MEDS ORDERED: ACETAMINOPHEN 325 MG TAB PO PRN (01:26)
[2020-04-05] MEDS ORDERED: ALBUT/IPRATROP 3MG/0.5MG NEB 3 ML VIAL NEB STA (03:17)
[2020-04-05 04:59] LABS: Basophils # (auto) 0.02 K/uL (0-0.2); Basophils % (auto) 0.2 %; Eosinophils # (auto) 0.17 K/uL (0-0.5); Eosinophils % (auto) 2.1 %; Hematocrit (blood only) 39.9 % (37-47); Hemoglobin 13.4 g/dL (12.0-16.0); Immature Granulocytes # (auto) 0.03 K/uL (0.00-0.02); Immature Granulocytes % (auto) 0.4 %; Lymphocytes # (auto) 2.31 K/uL (1.2-3.4); Lymphocytes % (auto) 28.2 %; Mean Corpuscular Hemoglobin 30.5 pg (25-34); Mean Corpuscular Hgb Conc 33.6 g/dL (32-36); Mean Corpuscular Volume 90.7 fL (80-100); Mean Platelet Volume 10.2 fL (7.4-10.4); Monocytes # (auto) 0.82 K/uL (0.11-0.59); Neutrophils # (auto) 4.85 K/uL (1.4-6.5); Neutrophils % (auto) 59.1 %; Platelet Count 317 K/uL (130-400); RDW Coefficient of Variation 13.7 % (11.5-14.5); RDW Standard Deviation 45.5 fL (36.4-46.3)
[2020-04-05 05:09] LABS: Partial Thromboplastin Ratio 0.9; Partial Thromboplastin Time 25.6 Seconds (21.0-31.0)
[2020-04-05 05:18] LABS: Alanine Aminotransferase 42 U/L (12-78); Aspartate Aminotransferase 43 U/L (15-37); BUN Creatinine Ratio 15.4 (10-20); Blood Urea Nitrogen 11 mg/dl (7-18); Calcium 7.9 mg/dl (8.5-10.1); Carbon Dioxide 27 mmol/L (21-32); Chloride 109 mmol/L (98-107); Creatinine Clr Calc Pharmacy 100.4 ml/min; Est GFR (African American) 122.4; Est GFR (Non-African American) 105.6; Glucose 102 mg/dl (70-99); Potassium 3.8 mmol/L (3.5-5.1); Sodium 142 mmol/L (136-145)
[2020-04-05 05:53] LABS: Alkaline Phosphatase 35 U/L (45-117); Bilirubin Direct < 0.1 mg/dl (0-0.2); Bilirubin,Total 0.2 mg/dl (0.2-1); Creatine Kinase 792 U/L (26-192); Total Protein 5.8 gm/dl (6.4-8.2); Troponin I 0.309 ng/ml (0-0.045)
--- NOTE | 2020-04-05 06:32 | XRay Report ---
XR chest 1V portable CLINICAL HISTORY: Shortness of breath. COMPARISON STUDY: Chest radiograph and chest CT April 04, 2020. FINDINGS: Lung volumes are normal. Lungs are clear. There is no pneumothorax or pleural effusion. Car diac size is normal. Mediastinal contours are normal. There is no evidence for pulmonary edema. IMPRESSION: No acute cardiopulmonary findings. ACT 112: Negative or not required by law. Electronically signed by: Justo Martin M.D. 04/05/2020 6:30 AM
[2020-04-05] MEDS: LACTATED RINGER'S 1,000 ML IV SCH ×2 (06:45→19:20)
--- NOTE | 2020-04-05 07:18 | CT Scan Report ---
CT ANGIOGRAM OF THE CHEST CLINICAL HISTORY: Dyspnea. Atypical chest pain. COMPARISON STUDY: Chest CT dated 06/03/2018. Chest x-ray dated 04/04/2020. TECHNIQUE: Following the IV administration of 118 cc of Optiray 320, CT angiogram of the chest was pe rformed from the upper abdomen to the thoracic inlet utilizing the pulmonary embolus protocol. Images are reviewed in the axial, sagittal, and coronal planes. 3-D MIPS images are created and assessed. I V contrast was administered without complication. A dose lowering technique was utilized adhering to the principles of ALARA. CT DOSE: 483.24 mGy.cm FINDINGS: Thyroid: Imaged portions of the thyroid gland are normal in size and attenuation. Thoracic aorta: The thoracic aorta is normal in caliber and demonstrates 4-vessel variant arch anatom y. An aberrant right subclavian artery arises as a fourth branch and courses posterior to the esophag us. No dissection is seen. Pulmonary vasculature: The pulmonary trunk is normal in caliber. There are no filling defects identif ied in main, lobar, or segmental pulmonary branches to suggest pulmonary embolus. Heart: The heart is normal in size and without pericardial effusion. Lungs and pleural spaces: There is no airspace consolidation or pleural effusion. Mild diffuse peribr onchial thickening is noted. The trachea and central airways are clear. Mediastinum: There is no mediastinal lymphadenopathy. Stacey: Clear. Axillae: There is no axillary lymphadenopathy. Upper abdomen: Cholecystectomy clips are noted. Partially visualized upper abdominal viscera is other menard within normal limits. Skeletal structures: No lytic or blastic bony lesions are seen. IMPRESSION: 1. There is no evidence of pulmonary embolus in the main, lobar, or segmental pulmonary arteries. 2. There is no airspace consolidation or pleural effusion. 3. Mild diffuse peribronchial thickening suggests bronchitis/reactive airway disease. Clinical correl ation will be required. ACT 112: Negative or not required by law. Electronically signed by: Mike Ferreira M.D. 04/05/2020 7:17 AM
[2020-04-05] MEDS: ENOXAPARIN INJ 40 MG/0.4 ML SYR SQ SCH (08:14)
[2020-04-05] MEDS: predniSONE 20 MG TAB PO SCH (08:17)
--- NOTE | 2020-04-05 09:40 | Ultrasound Report ---
ULTRASOUND OF THE CAROTID ARTERIES CLINICAL HISTORY: Syncope. COMPARISON STUDY: No priors. TECHNIQUE: Real-time, grayscale, and color Doppler sonography of the carotid arteries is performed. I mages are reviewed in the transverse and longitudinal planes. FINDINGS: Blood pressure in the right arm measures 117/78 and blood pressure in the left arm measures 105/68. The carotid arteries are patent bilaterally and demonstrate antegrade flow. There is no significant a therosclerotic plaque identified. Normal doppler arterial waveforms are seen throughout. Velocity qing surements are listed below. Common carotid peak systolic velocity (cm/sec): RIGHT: 78 LEFT: 106 ICA proximal peak systolic velocity (cm/sec): RIGHT: 52 LEFT: 78 ICA mid peak systolic velocity (cm/sec): RIGHT: 70 LEFT: 75 ICA distal peak systolic velocity (cm/sec): RIGHT: 83 LEFT: 85 ICA/CC peak systolic ratio: RIGHT: 1.1 LEFT: 0.8 Antegrade flow was shown in the vertebral arteries. The external carotid arteries are patent. Prominent bilateral cervical chain lymph nodes are identified. The largest is on the right and measur es 3.1 x 1.0 x 1.6 cm. IMPRESSION: 1. There is no sonographic evidence of hemodynamically significant stenosis in the right or left gu[place]ardo tid arterial system. 2. Antegrade flow is shown in the vertebral arteries. 3. Prominent cervical lymph nodes are incidentally noted and may be on a reactive basis. Clinical cor relation will be required. ACT 112: Negative or not required by law. Electronically signed by: Mike Ferreira M.D. 04/05/2020 9:39 AM
--- NOTE | 2020-04-05 12:46 | Cardiology Consultation ---
Date of Consultation April 05, 2020 Assessment & Plan (1) Syncope: (2) Asthma with COPD with exacerbation: (3) Elevated troponin: I have reviewed the patient's chart. Interviewed the patient and examined her. I do not believe that this was an acute cardiac event, however her troponins are borderline elevated, this may have been the result of acute exacerbation of asthma which resulted in her syncope. She has normal EKGs. She has had no significant arrhythmias on telemetry. Her echocardiogram is essentially normal. I think it would be reasonable to proceed with an exercise stress echocardiogram which if negative the patient can be discharged. History of Present Illness Attending Physician: Cruzito Boateng MD History of Present Illness This is a 44-year-old female with no prior of heart disease. She does have a history of asthma and is a current cigarette smoker. She was in her usual state of health on the evening of admission she was lying in bed and suddenly had shortness of breath that made her sit up on the side of the bed. She had trouble catching her breath and eventually her boyfriend found her unresponsive. She was brought by ambulance to the emergency department where she has been admitted. Her presenting EKG's are within normal limits. Cardiac markers are borderline elevated. She has no prior history of syncope, dizziness, lightheadedness or presyncope. No recent activity related chest pain. After hospital admission she has had no significant arrhythmias. Allergies Allergy/AdvReac Type Severity Reaction Status Date / Time No Known Allergies Allergy Unverified 04/04/20 21:28 Home Medications Home Medications Medication Instructions Recorded Confirmed Type Excedrin Migraine 2 tab PO BID PRN 06/02/18 04/04/20 History albuterol sulfate 2.5 mg INHALATION QID PRN 06/02/18 04/04/20 History albuterol sulfate 2 puff INHALATION Q6H PRN #1 06/29/19 04/04/20 Rx inhaler ibuprofen 600 mg PO Q6H PRN 04/04/20 04/04/20 History loratadine 10 mg PO DAILY 04/04/20 04/04/20 History fluticasone propion-salmeterol 1 inh INHALATION BID 04/05/20 04/05/20 History [Advair Diskus] Patient History Medical History Arthritis Asthma COPD (chronic obstructive pulmonary disease) Surgical History Previous section S/P cholecystectomy Tubal ligation status Family History Father Heart disease Hypertension Social History Smoking Status: Current every day smoker Tobacco Type: Cigarettes Cigarettes Per Day: 20; Second Hand Exposure: Yes; Hx Alcohol Use: Yes Alcohol type: beer Hx Substance Use: No Preferred Language: Kyrgyz Communication Ability: Effective 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 Physical Exam Physical Exam: General: no acute distress and stated age Head: normocephalic, no masses, lesions, tenderness or abnormalities Eyes: conjunctiva are pink and non-injected, sclera clear Neck: supple, no adenopathy, no bruits, normal jugular venous pulse, no hepatojugular reflux Chest: normal shape and normal respiratory effort Lungs: clear to auscultation and percussion Cardiac Exam: - regular rate & rhythm, no murmurs gallops or rubs - normal S1, normal S2 Pulses: 2(+) throughout Abdomen: abdomen soft, non-tender, no abnormal masses and no hepatosplenomegaly Musculoskeletal: no gait disturbance, no joint inflammation, no deforming arthritis Extremities: no edema and no cyanosis Neuro: grossly normal exam Results & Data ([facility]) Vital Signs (Past 12 Hours) Vital Signs Temp Pulse Pulse Pulse Pulse Resp BP 04/05/20 11:50 37.1 C 71 18 113/78 04/05/20 08:00 36.8 C 69 18 103/70 04/05/20 07:23 78 04/05/20 07:03 82 16 04/05/20 04:01 36.6 C 81 20 118/82 04/05/20 03:40 70 16 Pulse Ox 04/05/20 11:50 95 04/05/20 08:00 97 04/05/20 07:23 04/05/20 07:03 96 04/05/20 04:01 97 04/05/20 03:40 96 Laboratory Results Laboratory Results - last 24 hr 04/04/20 04/04/20 04/04/20 18:49 18:49 18:49 WBC 18.19 H RBC 4.73 Hgb 14.6 Hct 42.9 MCV 90.7 MCH 30.9 MCHC 34.0 RDW Std Deviation 45.3 RDW Coeff of Ahmet 13.6 Plt Count 359 MPV 10.0 Immature Gran % (Auto) 0.3 Neut % (Auto) 83.7 Lymph % (Auto) 8.0 [place] % (Auto) 6.9 Eos % (Auto) 0.9 Baso % (Auto) 0.2 Neut # (Auto) 15.24 H Lymph # (Auto) 1.45 [place] # (Auto) 1.26 H Eos # (Auto) 0.16 Baso # (Auto) 0.03 Immature Gran # (Auto) 0.05 H APTT PTT Ratio Sodium 138 Potassium 4.3 Chloride 104 Carbon Dioxide 30 Anion Gap 5.0 BUN 12 Creatinine 0.87 Est Cr Clr Drug Dosing 78.5 Est GFR ( Amer) 93.2 Est GFR (Non-Af Amer) 80.5 BUN/Creatinine Ratio 14.2 Glucose 77 Lactate Calcium 9.1 Magnesium 2.4 Total Bilirubin 0.2 Direct Bilirubin AST 60 H ALT 46 Alkaline Phosphatase 45 Total Creatine Kinase 545 H Troponin I 0.145 H* Total Protein 7.6 Albumin 3.8 Globulin 3.8 Albumin/Globulin Ratio 1.0 Lipase TSH 3.410 Specimen Hemolysis Urine Color Urine Appearance Urine pH Ur Specific [place] Urine Protein Urine Glucose (UA) Urine Ketones Urine Blood Urine Nitrite Urine Bilirubin Urine Urobilinogen Ur Leukocyte Esterase Urine WBC (Auto) Urine RBC (Auto) U Hyaline Cast (Auto) U Epithel Cells (Auto) Urine Bacteria (Auto) Urine Opiates Screen Ur Methadone, Qual Urine Barbiturates Ur Phencyclidine (PCP) U Amphetamin/Meth Scrn MDMA (Ecstasy) Screen U Benzodiazepines Scrn Ur Cocaine Metabolite U Marijuana (THC) Screen Ethyl Alcohol mg/dL < 3.0 COVID-19 Eval Order COVID-19 PCR 04/04/20 04/04/20 04/04/20 18:49 19:54 19:54 WBC RBC Hgb Hct MCV MCH MCHC RDW Std Deviation RDW Coeff of Ahmet Plt Count MPV Immature Gran % (Auto) Neut % (Auto) Lymph % (Auto) [place] % (Auto) Eos % (Auto) Baso % (Auto) Neut # (Auto) Lymph # (Auto) [place] # (Auto) Eos # (Auto) Baso # (Auto) Immature Gran # (Auto) APTT PTT Ratio Sodium Potassium Chloride Carbon Dioxide Anion Gap BUN Creatinine Est Cr Clr Drug Dosing Est GFR ( Amer) Est GFR (Non-Af Amer) BUN/Creatinine Ratio Glucose Lactate Calcium Magnesium Total Bilirubin Direct Bilirubin AST ALT Alkaline Phosphatase Total Creatine Kinase Cancelled Troponin I Total Protein Albumin Globulin Albumin/Globulin Ratio Lipase TSH Specimen Hemolysis Urine Color Yellow Urine Appearance Clear Urine pH 7.0 Ur Specific [place] 1.015 Urine Protein 1+ H Urine Glucose (UA) Negative Urine Ketones Negative Urine Blood 1+ H Urine Nitrite Negative Urine Bilirubin Negative Urine Urobilinogen Negative Ur Leukocyte Esterase Negative Urine WBC (Auto) 1-5 Urine RBC (Auto) 5-10 H U Hyaline Cast (Auto) 1-5 U Epithel Cells (Auto) 20-30 H Urine Bacteria (Auto) Negative Urine Opiates Screen Neg Ur Methadone, Qual Neg Urine Barbiturates Neg Ur Phencyclidine (PCP) Neg U Amphetamin/Meth Scrn Neg MDMA (Ecstasy) Screen Neg U Benzodiazepines Scrn Neg Ur Cocaine Metabolite Neg U Marijuana (THC) Screen Neg Ethyl Alcohol mg/dL COVID-19 Eval Order COVID-19 PCR 04/04/20 04/04/20 04/04/20 21:32 21:32 21:32 WBC RBC Hgb Hct MCV MCH MCHC RDW Std Deviation RDW Coeff of Ahmet Plt Count MPV Immature Gran % (Auto) Neut % (Auto) Lymph % (Auto) [place] % (Auto) Eos % (Auto) Baso % (Auto) Neut # (Auto) Lymph # (Auto) [place] # (Auto) Eos # (Auto) Baso # (Auto) Immature Gran # (Auto) APTT 24.4 PTT Ratio 0.9 Sodium Potassium Chloride Carbon Dioxide Anion Gap BUN Creatinine Est Cr Clr Drug Dosing Est GFR ( Amer) Est GFR (Non-Af Amer) BUN/Creatinine Ratio Glucose Lactate 1.1 Calcium Magnesium Total Bilirubin Direct Bilirubin AST ALT Alkaline Phosphatase Total Creatine Kinase Troponin I 0.347 H* Total Protein Albumin Globulin Albumin/Globulin Ratio Lipase 105 TSH Specimen Hemolysis Urine Color Urine Appearance Urine pH Ur Specific [place] Urine Protein Urine Glucose (UA) Urine Ketones Urine Blood Urine Nitrite Urine Bilirubin Urine Urobilinogen Ur Leukocyte Esterase Urine WBC (Auto) Urine RBC (Auto) U Hyaline Cast (Auto) U Epithel Cells (Auto) Urine Bacteria (Auto) Urine Opiates Screen Ur Methadone, Qual Urine Barbiturates Ur Phencyclidine (PCP) U Amphetamin/Meth Scrn MDMA (Ecstasy) Screen U Benzodiazepines Scrn Ur Cocaine Metabolite U Marijuana (THC) Screen Ethyl Alcohol mg/dL COVID-19 Eval Order COVID-19 PCR 04/04/20 04/04/20 04/05/20 21:32 21:32 04:43 WBC 8.20 RBC 4.40 Hgb 13.4 Hct 39.9 MCV 90.7 MCH 30.5 MCHC 33.6 RDW Std Deviation 45.5 RDW Coeff of Ahmet 13.7 Plt Count 317 MPV 10.2 Immature Gran % (Auto) 0.4 Neut % (Auto) 59.1 Lymph % (Auto) 28.2 [place] % (Auto) 10.0 Eos % (Auto) 2.1 Baso % (Auto) 0.2 Neut # (Auto) 4.85 Lymph # (Auto) 2.31 [place] # (Auto) 0.82 H Eos # (Auto) 0.17 Baso # (Auto) 0.02 Immature Gran # (Auto) 0.03 H APTT PTT Ratio Sodium Potassium Chloride Carbon Dioxide Anion Gap BUN Creatinine Est Cr Clr Drug Dosing Est GFR ( Amer) Est GFR (Non-Af Amer) BUN/Creatinine Ratio Glucose Lactate Calcium Magnesium Total Bilirubin Direct Bilirubin AST ALT Alkaline Phosphatase Total Creatine Kinase Troponin I Total Protein Albumin Globulin Albumin/Globulin Ratio Lipase TSH Specimen Hemolysis Urine Color Urine Appearance Urine pH Ur Specific [place] Urine Protein Urine Glucose (UA) Urine Ketones Urine Blood Urine Nitrite Urine Bilirubin Urine Urobilinogen Ur Leukocyte Esterase Urine WBC (Auto) Urine RBC (Auto) U Hyaline Cast (Auto) U Epithel Cells (Auto) Urine Bacteria (Auto) Urine Opiates Screen Ur Methadone, Qual Urine Barbiturates Ur Phencyclidine (PCP) U Amphetamin/Meth Scrn MDMA (Ecstasy) Screen U Benzodiazepines Scrn Ur Cocaine Metabolite U Marijuana (THC) Screen Ethyl Alcohol mg/dL COVID-19 Eval Order Covid19 Done at [facility] COVID-19 PCR NEGATIVE 04/05/20 04/05/20 04:43 04:43 WBC RBC Hgb Hct MCV MCH MCHC RDW Std Deviation RDW Coeff of Ahmet Plt Count MPV Immature Gran % (Auto) Neut % (Auto) Lymph % (Auto) [place] % (Auto) Eos % (Auto) Baso % (Auto) Neut # (Auto) Lymph # (Auto) [place] # (Auto) Eos # (Auto) Baso # (Auto) Immature Gran # (Auto) APTT 25.6 PTT Ratio 0.9 Sodium 142 Potassium 3.8 Chloride 109 H Carbon Dioxide 27 Anion Gap 6.0 BUN 11 Creatinine 0.68 Est Cr Clr Drug Dosing 100.4 Est GFR ( Amer) 122.4 Est GFR (Non-Af Amer) 105.6 BUN/Creatinine Ratio 15.4 Glucose 102 H Lactate Calcium 7.9 L Magnesium Total Bilirubin 0.2 Direct Bilirubin < 0.1 AST 43 H ALT 42 Alkaline Phosphatase 35 L Total Creatine Kinase 792 H Troponin I 0.309 H* Total Protein 5.8 L D Albumin 3.0 L Globulin Albumin/Globulin Ratio Lipase TSH Specimen Hemolysis Urine Color Urine Appearance Urine pH Ur Specific [place] Urine Protein Urine Glucose (UA) Urine Ketones Urine Blood Urine Nitrite Urine Bilirubin Urine Urobilinogen Ur Leukocyte Esterase Urine WBC (Auto) Urine RBC (Auto) U Hyaline Cast (Auto) U Epithel Cells (Auto) Urine Bacteria (Auto) Urine Opiates Screen Ur Methadone, Qual Urine Barbiturates Ur Phencyclidine (PCP) U Amphetamin/Meth Scrn MDMA (Ecstasy) Screen U Benzodiazepines Scrn Ur Cocaine Metabolite U Marijuana (THC) Screen Ethyl Alcohol mg/dL COVID-19 Eval Order COVID-19 PCR Medications Administered Current Inpatient Medications Acetaminophen (Acetaminophen 325 Mg Tab) 325 mg PO Q6H PRN PRN Reason: Mild Pain Stop: 05/05/20 01:25 Enoxaparin Sodium (Enoxaparin Inj 40 Mg/0.4 Ml Syr) 40 mg SQ QAM [place] Stop: 05/05/20 08:59 Last Admin: 04/05/20 08:14 Dose: 40 mg Documented by: Promethazine HCl 12.5 mg/ (Sodium Chloride) 50.5 mls @ 202 mls/hr IV Q6H PRN PRN Reason: Nausea And Vomiting Stop: 05/05/20 00:17 Lorazepam (Ativan) 0.25 mg in 0.5 mls @ 0.5 mls/min IV Q4H PRN PRN Reason: Anxiety Stop: 05/05/20 00:17 Lactated Ringer's (Lr) 1,000 mls @ 80 mls/hr IV .[id number] [facility] Stop: 04/06/20 05:59 Last Admin: 04/05/20 06:45 Dose: 80 mls/hr Documented by: Ibuprofen (Ibuprofen 200 Mg Tab) 200 mg PO Q6H PRN PRN Reason: Mild Pain Stop: 05/05/20 00:17 Ipratropium [place] (Ipratropium [place] Neb Soln 0.02% 2.5 Ml Vial) 0.5 mg INH Q6R [facility] Stop: 05/05/20 00:59 Last Admin: 04/05/20 07:03 Dose: 0.5 mg Documented by: Levalbuterol HCl (Levalbuterol 1.25mg/0.5ml Neb) 1.25 mg INH Q6R [facility] Stop: 05/05/20 00:59 Last Admin: 04/05/20 07:03 Dose: 1.25 mg Documented by: Prednisone (Prednisone 20 Mg Tab) 40 mg PO DAILY [facility] Stop: 04/09/20 08:59 Last Admin: 04/05/20 08:17 Dose: 40 mg Documented by: (1) Syncope Syncope type: unspecified Qualified Code(s): R55 - Syncope and collapse
[2020-04-05] MEDS ORDERED: LORATADINE 10 MG TAB PO PRN (15:18)
--- NOTE | 2020-04-05 15:33 | Hospitalist Progress Note ---
Date of Service April 05, 2020 Assessment & Plan (1) Unresponsive episode: Syncopal event Likely secondary to Hypoxia Elevated Troponin likely Type II PR --ECHO: No significant valvular pathology. The left ventricle is normal in size. There is mild concentric left ventricular hypertrophy. Ejection fraction 55 to 60%. The left ventricle wall motion is normal. The right ventricular systolic function is normal. The left atrial size is normal. Right atrial size is normal. --Carotid Doppler:There is no sonographic evidence of hemodynamically significant stenosis in the right or left carotid arterial system. Antegrade flow is shown in the vertebral arteries. Prominent cervical lymph nodes are incidentally noted and may be on a reactive basis. Clinical correlation will be required. 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 Mild rhabdomyolysis Continue IV fluids Chronic Allergies Continue Loratadine DVT Px: Lovenox SQ Code Status Full code Disposition Expect to discharge home when medically stable Admission and Anticipated Discharge Date Admission Date: April 05, 2020 Subjective Patient is seen and examined at bedside Complains of chest tightness, nonproductive cough Admits that she continues to smoke Denies shortness of breath, dizziness, nausea, abdominal pain Eager to get discharged Offers no other complaints Review of Systems Review of Systems: All systems reviewed & are unremarkable except as noted in HPI & below Physical Exam Physical Exam: Physical Exam: Vitals signs as noted above General Appearance:Moderately built and nourished, no apparent distress Head: normocephalic, Atraumatic Eyes: normal inspection, EOMI Neck: supple, Trachea midline Respiratory/Chest: Decreased breath sounds, CTA, No accessory muscle use Cardiovascular: S1, S2, No murmur Abdomen/GI:Soft, Non tender, Bowel sounds present Extremities/Musculoskelatal:normal inspection, no edema Neurologic/Psych:AAOX3, grossly no focal neurological deficits Skin: normal color, warm Results & Data Results & Data ([facility]) Vital Signs (Past 12 Hours) Vital Signs Temp Pulse Pulse Pulse Pulse Resp BP 04/05/20 13:07 96 H 18 04/05/20 11:50 37.1 C 71 18 113/78 04/05/20 08:00 36.8 C 69 18 103/70 04/05/20 07:23 78 04/05/20 07:03 82 16 04/05/20 04:01 36.6 C 81 20 118/82 04/05/20 03:40 70 16 Pulse Ox 04/05/20 13:07 92 04/05/20 11:50 95 04/05/20 08:00 97 04/05/20 07:23 04/05/20 07:03 96 04/05/20 04:01 97 04/05/20 03:40 96 Laboratory Results Short CBC 04/04/20 04/05/20 Range/Units 18:49 04:43 WBC 18.19 H 8.20 (4.8-10.8) K/uL Hgb 14.6 13.4 (12.0-16.0) g/dL Hct 42.9 39.9 (37-47) % Plt Count 359 317 (130-400) K/uL BMP 04/04/20 04/05/20 18:49 04:43 Sodium 138 142 Potassium 4.3 3.8 Chloride 104 109 H Carbon Dioxide 30 27 BUN 12 11 Creatinine 0.87 0.68 Glucose 77 102 H Calcium 9.1 7.9 L Cardiac Enzymes 04/04/20 04/04/20 04/04/20 Range/Units 18:49 18:49 21:32 Total Creatine Kinase 545 H Cancelled (26-192) U/L Troponin I 0.145 H* 0.347 H* (0-0.045) ng/ml 04/05/20 Range/Units 04:43 Total Creatine Kinase 792 H (26-192) U/L Troponin I 0.309 H* (0-0.045) ng/ml Liver Function 04/04/20 04/05/20 Range/Units 18:49 04:43 Total Bilirubin 0.2 0.2 (0.2-1) mg/dl Direct Bilirubin < 0.1 (0-0.2) mg/dl AST 60 H 43 H (15-37) U/L ALT 46 42 (12-78) U/L Alkaline Phosphatase 45 35 L (45-117) U/L Albumin 3.8 3.0 L (3.4-5.0) gm/dl Urine 04/04/20 Range/Units 19:54 Urine Color Yellow Urine Appearance Clear (Clear) Urine pH 7.0 (4.5-7.5) Ur Specific [place] 1.015 (1.000-1.030) Urine Protein 1+ H (Negative) Urine Glucose (UA) Negative (Negative)
[2020-04-05] MEDS: DOXYCYCLINE HYCLATE 100 MG CAP PO SCH ×2 (18:22→20:18)
[2020-04-05] MEDS ORDERED: FLUTICASONE/VILANTEROL 200/25MCG 14 PUFFS/INHALER INH SCH (21:00)
[2020-04-06] MEDS: LEVALBUTEROL 1.25MG/0.5ML NEB INH SCH ×3 (01:20→13:19)
[2020-04-06] MEDS: IPRATROPIUM BROMIDE NEB SOLN 0.02% 2.5 ML VIAL INH SCH ×3 (01:20→13:19)
--- NOTE | 2020-04-06 06:38 | Electrocardiogram Report ---
Test Reason : Blood Pressure : / mmHG Vent. Rate : 086 BPM Atrial Rate : 086 BPM P-R Int : 148 ms QRS Dur : 084 ms QT Int : 382 ms P-R-T Axes : 052 070 065 degrees QTc Int : 457 ms Normal sinus rhythm Normal ECG When compared with ECG of 26-JUN-2019 11:03, No significant change was found Confirmed by Mario Villanueva ([id number]) on 04/06/2020 6:38:19 AM Referred By: REFERRED SELF Confirmed By:Mario Villanueva
[2020-04-06] MEDS: ENOXAPARIN INJ 40 MG/0.4 ML SYR SQ SCH (07:23)
[2020-04-06] MEDS: predniSONE 20 MG TAB PO SCH (07:23)
[2020-04-06] MEDS: DOXYCYCLINE HYCLATE 100 MG CAP PO SCH (07:23)
[2020-04-06 08:00] LABS: BUN Creatinine Ratio 14.4 (10-20); Calcium 8.7 mg/dl (8.5-10.1); Creatinine Clr Calc Pharmacy 96.2 ml/min; Est GFR (African American) 119.2; Est GFR (Non-African American) 102.9; Magnesium 1.9 mg/dl (1.8-2.4); Potassium 3.3 mmol/L (3.5-5.1)
[2020-04-06] MEDS ORDERED: LORATADINE 10 MG TAB PO SCH (09:00)
--- NOTE | 2020-04-06 10:30 | Cardiology Progress Note ---
Date of Service April 06, 2020 Assessment & Plan (1) Syncope: (2) Asthma with COPD with exacerbation: (3) Elevated troponin: Today the patient underwent an exercise stress echocardiogram which was negative for ischemia. She had poor exercise performance due to deconditioning and a history of smoking/asthma, but obtained an adequate heart rate response. No arrhythmias. I believe the patient may be discharged home with outpatient follow-up. Admission and Anticipated Discharge Date Admission Date: April 05, 2020 Subjective The patient expresses no complaints today and is anxious to return home. Review of Systems Review of Systems: All systems reviewed & are unremarkable except as noted in HPI & below Nothing additional to add Physical Exam Physical Exam: General: no acute distress and stated age Head: normocephalic, no masses, lesions, tenderness or abnormalities Eyes: conjunctiva are pink and non-injected, sclera clear Neck: supple, no adenopathy, no bruits, normal jugular venous pulse, no hepatojugular reflux Chest: normal shape and normal respiratory effort Lungs: clear to auscultation and percussion Cardiac Exam: - regular rate & rhythm, no murmurs gallops or rubs - normal S1, normal S2 Pulses: 2(+) throughout Abdomen: abdomen soft, non-tender, no abnormal masses and no hepatosplenomegaly Musculoskeletal: no gait disturbance, no joint inflammation, no deforming arthritis Extremities: no edema and no cyanosis Neuro: grossly normal exam Results & Data ([facility]) Vital Signs (Past 12 Hours) Vital Signs Temp Pulse Pulse Resp BP Pulse Ox 04/06/20 07:49 36.4 C L 75 18 119/76 95 04/06/20 07:01 71 19 98 04/06/20 03:16 36.7 C 73 19 113/74 97 04/06/20 01:20 80 18 95 04/06/20 00:01 36.6 C 83 20 110/71 97 Laboratory Results Laboratory Results - last 24 hr 04/06/20 06:53 Sodium 142 Potassium 3.3 L Chloride 108 H Carbon Dioxide 28 Anion Gap 6.0 BUN 10 Creatinine 0.71 Est Cr Clr Drug Dosing 96.2 Est GFR ( Amer) 119.2 Est GFR (Non-Af Amer) 102.9 BUN/Creatinine Ratio 14.4 Glucose 87 Calcium 8.7 Magnesium 1.9 Medications Administered Current Inpatient Medications Acetaminophen (Acetaminophen 325 Mg Tab) 325 mg PO Q6H PRN PRN Reason: Mild Pain Stop: 05/05/20 01:25 Doxycycline Hyclate (Doxycycline Hyclate 100 Mg Cap) 100 mg PO BID [facility] Stop: 04/12/20 15:19 Last Admin: 04/06/20 07:23 Dose: 100 mg Documented by: Enoxaparin Sodium (Enoxaparin Inj 40 Mg/0.4 Ml Syr) 40 mg SQ QAM [place] Stop: 05/05/20 08:59 Last Admin: 04/06/20 07:23 Dose: 40 mg Documented by: Fluticasone/Vilanterol (Fluticasone/Vilanterol 200/25mcg 14 Puffs/Inhaler) 1 puffs INH QPM [place] Stop: 05/05/20 20:59 Last Admin: 04/05/20 20:18 Dose: 1 puffs Documented by: Promethazine HCl 12.5 mg/ (Sodium Chloride) 50.5 mls @ 202 mls/hr IV Q6H PRN PRN Reason: Nausea And Vomiting Stop: 05/05/20 00:17 Lorazepam (Ativan) 0.25 mg in 0.5 mls @ 0.5 mls/min IV Q4H PRN PRN Reason: Anxiety Stop: 05/05/20 00:17 Ibuprofen (Ibuprofen 200 Mg Tab) 200 mg PO Q6H PRN PRN Reason: Mild Pain Stop: 05/05/20 00:17 Last Admin: 04/05/20 23:52 Dose: 200 mg Documented by: Ipratropium [place] (Ipratropium [place] Neb Soln 0.02% 2.5 Ml Vial) 0.5 mg INH Q6R [facility] Stop: 05/05/20 00:59 Last Admin: 04/06/20 07:00 Dose: 0.5 mg Documented by: Levalbuterol HCl (Levalbuterol 1.25mg/0.5ml Neb) 1.25 mg INH Q6R [facility] Stop: 05/05/20 00:59 Last Admin: 04/06/20 06:59 Dose: 1.25 mg Documented by: Loratadine (Loratadine 10 Mg Tab) 10 mg PO DAILY [facility] Stop: 05/06/20 08:59 Last Admin: 04/06/20 07:23 Dose: 10 mg Documented by: Prednisone (Prednisone 20 Mg Tab) 40 mg PO DAILY [facility] Stop: 04/09/20 08:59 Last Admin: 04/06/20 07:23 Dose: 40 mg Documented by: (1) Syncope Syncope type: unspecified Qualified Code(s): R55 - Syncope and collapse
--- NOTE | 2020-04-06 12:39 | Hospitalist Progress Note ---
Date of Service April 06, 2020 Assessment & Plan (1) Unresponsive episode: Syncopal event Likely secondary to Hypoxia Elevated Troponin likely Type II CA --ECHO: No significant valvular pathology. The left ventricle is normal in size. There is mild concentric left ventricular hypertrophy. Ejection fraction 55 to 60%. The left ventricle wall motion is normal. The right ventricular systolic function is normal. The left atrial size is normal. Right atrial size is normal. --Carotid Doppler:There is no sonographic evidence of hemodynamically significant stenosis in the right or left carotid arterial system. Antegrade flow is shown in the vertebral arteries. Prominent cervical lymph nodes are incidentally noted and may be on a reactive basis. Clinical correlation will be required. 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 Mild rhabdomyolysis Received IV fluids Chronic Allergies Continue Loratadine DVT Px: Lovenox SQ Code Status Full code Disposition Plan to discharge home today Admission and Anticipated Discharge Date Admission Date: April 05, 2020 Subjective Patient is seen and examined at bedside States feeling well today Had exercise stress test today which was negative for inducible ischemia Had minimal non-expectorant cough Chest tightness resolved Offers no other complaints Denies shortness of breath, dizziness, nausea, abdominal pain Review of Systems Review of Systems: All systems reviewed & are unremarkable except as noted in HPI & below Physical Exam Physical Exam: Physical Exam: Vitals signs as noted above General Appearance:Moderately built and nourished, no apparent distress Head: normocephalic, Atraumatic Eyes: normal inspection, EOMI Neck: supple, Trachea midline Respiratory/Chest: Decreased breath sounds, CTA, No accessory muscle use Cardiovascular: S1, S2, No murmur Abdomen/GI:Soft, Non tender, Bowel sounds present Extremities/Musculoskelatal:normal inspection, no edema Neurologic/Psych:AAOX3, grossly no focal neurological deficits Skin: normal color, warm Results & Data Results & Data ([facility]) Vital Signs (Past 12 Hours) Vital Signs Temp Pulse Pulse Resp BP Pulse Ox 04/06/20 11:51 36.6 C 85 18 136/84 93 04/06/20 07:49 36.4 C L 75 18 119/76 95 04/06/20 07:01 71 19 98 04/06/20 03:16 36.7 C 73 19 113/74 97 04/06/20 01:20 80 18 95 Laboratory Results [facility] 04/06/20 06:53 Sodium 142 Potassium 3.3 L Chloride 108 H Carbon Dioxide 28 BUN 10 Creatinine 0.71 Glucose 87 Calcium 8.7
--- NOTE | 2020-04-06 12:53 | Discharge Summary ---
Date of Service April 06, 2020 Admission HPI Per Admitting Provider History obtained from patient and records. Medical history significant for COPD, ongoing tobacco abuse. Last confinement June 2019 for COPD exacerbation, ongoing tobacco abuse. 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 Chest tightness, shortness of breath, not fully relieved by home rescue inhaler. No headache at time of event. No unusual cough symptoms. Patient subsequently passed out. Patient found by boyfriend unresponsive. EMS summoned to patient's home. Patient found to be unresponsive with pinpoint pupils and respirations of 10. O2 sats 80s on room air. Narcan administered by EMS. Patient subsequently woke up and started vomiting. Patient denies narcotic intake. At the ER, patient received Solu-Medrol, neb treatment for asthma exacerbation. Aspirin given for troponin elevation. Patient currently feels better. 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 Admission Exam Per Admitting Provider Physical Exam Physical Exam: GENERAL: Comfortable, slightly anxious, obese, no respiratory distress SKIN: Normal color, warm HEENT: Markle palpebral conjunctivae, no ptosis, dry buccal mucosa NECK : Supple, no tenderness CHEST : Decreased breath sounds, expiratory wheezes, no tenderness HEART : RRR, no obvious murmurs ABDOMEN: Some distention, nontender EXTREMITIES : No LE swelling/tenderness, no other conspicuous deformities noted NEUROLOGIC : Coherent, no facial asymmetry, no other gross focality Principal Diagnosis Syncope Acute COPD/Asthma Exacerbation Hypoxia Discharge Data Allergies Allergy/AdvReac Type Severity Reaction Status Date / Time No Known Allergies Allergy Unverified 04/04/20 21:28 Consultations 04/04/20 21:10 ED Decision to Admit Stat 04/05/20 08:26 Consult Cardiology Routine Procedures Performed --ECHO: No significant valvular pathology. The left ventricle is normal in size. There is mild concentric left ventricular hypertrophy. Ejection fraction 55 to 60%. The left ventricle wall motion is normal. The right ventricular systolic function is normal. The left atrial size is normal. Right atrial size is normal. --Carotid Doppler:There is no sonographic evidence of hemodynamically s ignificant stenosis in the right or left carotid arterial system. Antegrade flow is shown in the vertebral arteries. Prominent cervical lymph nodes are incidentally noted and may be on a reactive basis. Clinical correlation will be required. Ordered Studies 04/04/20 19:39 CT angio chest PE protocol Urgent 04/05/20 09:00 US carotid doppler Urgent Hospital Course (1) Unresponsive episode: Syncopal event Likely secondary to Hypoxia Elevated Troponin likely Type II [place] --ECHO: No significant valvular pathology. The left ventricle is normal in size. There is mild concentric left ventricular hypertrophy. Ejection fraction 55 to 60%. The left ventricle wall motion is normal. The right ventricular systolic function is normal. The left atrial size is normal. Right atrial size is normal. --Carotid Doppler:There is no sonographic evidence of hemodynamically significant stenosis in the right or left carotid arterial system. Antegrade flow is shown in the vertebral arteries. Prominent cervical lymph nodes are incidentally noted and may be on a reactive basis. Clinical correlation will be required. 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 Mild rhabdomyolysis Received IV fluids Chronic Allergies Continue Loratadine DVT Px: Lovenox SQ Code Status Full code Disposition Plan to discharge home today Total Time Total Time Spent Total Time Spent (In Minutes): 39 minutes Total Time Includes: Examination of the Patient, Discharge Planning, Medication Reconciliation, Communication With Other Providers and Other Discharge Plan Discharge Items Patient Disposition: Home - Self-Care Reason For Visit: syncope, trop elev, dc idol, covid neg Discharge Diagnosis: Syncope Acute COPD/Asthma Exacerbation Hypoxia Condition on Discharge: Good Activity: Resume your previous activity Exercise/Sports: Gradually increase as tolerated Non-emergency contact: Primary Care Provider Call non-emergency contact if: you have any medication questions, your symptoms worsen, your pain is not controlled, your pain is worsening, your pain is unusual for you, your pain is concerning for you and you have a fever Follow-up/Referrals: Fannie Garcia PA-C [Primary Care Provider] - 04/13/20 11:00 am (Date & Time 04/13/2020 11:00 AM Provider Deana Montgomery, [facility] ) Diet: Heart Healthy Addtl Attending Provider Instructions: Follow-up with your primary care physician Dr. Montgomery on April 13, 2020 at 11 AM Complete Doxycycline, prednisone course as prescribed Seek immediate medical attention if your symptoms reoccur or worsen Your blood cultures are pending at the time of discharge. Follow-up with your physician for results. Pending Studies at Discharge: Yes Studies:: Blood Cultures Stand-Alone Forms: My [facility], Smoking Cessation, Suicide Prevention Resources Medications and DC Order Prescriptions: New doxycycline hyclate 100 mg Capsule 100 mg PO BID Qty: 8 RF: 0 prednisone 20 mg Tablet 40 mg PO DAILY Qty: 8 RF: 0 Continued albuterol sulfate 2.5 mg /3 mL (0.083 %) Solution For Nebulization 2.5 mg INHALATION QID PRN (Reason: Shortness Of Breath Or Wheezing) RF: 0 Excedrin Migraine 250-250-65 mg Tablet 2 tab PO BID PRN (Reason: Migraine Headache) RF: 0 albuterol sulfate 90 mcg/actuation Hfa Aerosol Inhaler 2 puff INHALATION Q6H PRN (Reason: Shortness Of Breath Or Wheezing) Qty: 1 RF: 1 ibuprofen 200 mg Tablet 600 mg PO Q6H PRN (Reason: Headache) RF: 0 loratadine 10 mg Tablet 10 mg PO DAILY RF: 0 fluticasone propion-salmeterol [Advair Diskus] 250-50 mcg/dose blister with device 1 inh INHALATION BID Qty: 1 RF: 0 Discharge Orders: Discharge Order (Routine); Ordered 04/06/20 Ordered By: Cruzito Boateng Admission Data Admit Date/Time: 04/05/20 14:25 Attending Provider: Cruzito Boateng Admit Provider: Barry Howell Primary Care Provider: Fannie Garcia Other Providers: Barry Howell ; Emmanuel Pinon Other Interventions: Discharge Summary Assessment (RN) Last Done: 04/06/20 14:06
[2020-04-06] MEDS ORDERED: DOXYCYCLINE HYCLATE 100 MG CAP PO SCH (14:00)
[2020-04-07] MEDS ORDERED: predniSONE 20 MG TAB PO SCH (09:00)
== END 2020-04-06 14:20 | disposition home or self-care (01) | DRG 190 ==
LOC: ED 17:51 → 2N 17:51

== ENCOUNTER 2021-04-16 17:18 | Inpatient (IN) ==
--- NOTE | 2021-04-16 17:26 | Emergency Department Note ---
Impression & Plan Acute respiratory failure with hypoxia, COPD (chronic obstructive pulmonary disease) ED Provider Note NAME: LUCIAN BRODY AGE: 45 SEX: F : 1975 ARRIVES VIA: Walk-In INFORMANT: patient, ED PROVIDER(S): Vinod Mike MD Chief Complaint: Shortness of breath HPI: Patient does present with shortness of breath and associated cough that has been productive over the last week but has been worse especially this morning. The patient does smoke and is not vaccinated for Covid and is refusing the vaccine. The patient denies any fevers chills or chest pains. Patient denies lower extremity swelling history DVT or PE. Patient denies any known sick contacts or recent travel. Patient does not wear at home oxygen. Patient states that activities do make her symptoms worse. No alleviating factors other than rest. ROS: See HPI for pertinent positives and negatives. A total of 10 systems were reviewed and otherwise negative. Past medical history: See below Surgical history: See below Social history: See below Physical Exam: GENERAL: Mild distress, tachypnea noted. EYE EXAM: Normal conjunctiva. PERRL, no anisocoria and EOM's grossly intact w/o pain. OROPHARYNX: Moist mucus membranes. Grossly normal dentition. NECK: Supple, no nuchal rigidity, no adenopathy, non-tender. No signs of mening ismus. LUNGS: Tachypnea noted, slight decreased breath sounds throughout with inspiratory next Tory wheezing throughout. HEART: Tachycardic and regular, no MRG. ABDOMEN: Abdomen soft, non-tender, normo-active bowel sounds, no masses, no rebound or guarding. BACK: No CVA TTP. SKIN: No rashes and no bruising. UPPER EXTREMITIES: Upper extremities are grossly normal. LOWER EXTREMITIES: Grossly normal, no edema. NEURO EXAM: A&O x3, cranial nerves II-XII grossly intact, normal speech, moves all 4 extremities on command w/o issue. Differential diagnoses: Reactive airway disease, pneumonia, pneumothorax, COPD, CHF, infections, cardiac ischemia, pulmonary embolism, musculoskeletal, gastrointestinal, as well as other pathologies. Course: Patient was seen and evaluated the bedside. Full history physical exam was performed. EKG interpreted by me Normal sinus rhythm, rate of 100, normal CA and QRS, normal axis. No ST changes. Imaging Studies: See Below Cardiac monitoring: An order was placed for continuous cardiac monitoring. The monitor shows a rate of 102 with tachycardic and regular rhythm. MDM: Patient was seen due to concern for shortness of breath. The patient did have blood work completed was treated symptomatically with duo nebs, steroids, IV fluids and IV magnesium. Patient is an unvaccinated smoker. Upon initial reassessment the patient was still having some difficulty so the patient was placed on BiPAP. Patient's chest x-ray is clear. White count is normal with normal H&H and platelet count. The patient's kidney function unremarkable. Troponin not detectable. Covid negative. Upon reassessment the patient did have improvement in her breathing. I did s peak with the on-call hospitalist Dr. Pineda and the patient was admitted to the medicine service. Critical Care: I have personally spent 77 minutes of critical care time in direct management of this patient. This includes bedside care, interpretation of diagnostic studies, and testing, discussion with consultants, patient, and family members, and other require inpatient management activities. This 77 minutes is in excess of all separately billable procedures. Past Med/Surg History Medical History (Updated 04/16/21 @ 23:26 by Vinod Mike MD) Arthritis Asthma COPD (chronic obstructive pulmonary disease) Surgical History Previous section S/P cholecystectomy Tubal ligation status Family History Father Heart disease Hypertension Social History Smoking Status: Current every day smoker Tobacco Type: Cigarettes Cigarettes Per Day: 20; Second Hand Exposure: Yes; Hx Alcohol Use: Yes Alcohol type: beer Hx Substance Use: No Preferred Language: Latvian Communication Ability: Effective Infrastructure Administrator Required: No Beliefs That Will Affect Care: None Current Living Situation: Significant Other Current Living Situation Comment: friend Feels Safe at Home: Yes Assistive Devices: Oxygen - at Night Allergies Allergies Allergy/AdvReac Type Severity Reaction Status Date / Time acetaminophen [From Tylenol] Allergy Mild Rash Unverified 04/16/21 20:01 Home Meds Home Medications Medication Instructions Recorded Confirmed albuterol sulfate 2.5 mg INHALATION QID PRN 06/02/18 04/16/21 [id number] 250 2 tab PO BID PRN 06/02/18 04/16/21 mg-250 mg-65 mg tablet (Excedrin Migraine) ibuprofen 200 mg tablet 600 mg PO Q6H PRN 04/04/20 04/16/21 loratadine 10 mg tablet 10 mg PO DAILY 04/04/20 04/16/21 lisinopril 5 mg tablet 5 mg PO DAILY 04/16/21 04/16/21 Previous Rx's Medication Instructions Recorded albuterol sulfate 90 mcg/actuation 2 puff INHALATION Q6H PRN #1 06/29/19 aerosol inhaler inhaler fluticasone 250 mcg-salmeterol 50 1 inh INHALATION BID #1 inhaler 04/06/20 mcg/dose blistr powdr for inhalation (Advair Diskus) Results & Data (ED) Vital Signs Vital Signs - 24 hr 04/16/21 17:20 04/16/21 17:35 04/16/21 17:44 Temperature 36.1 C L Temperature Source Temporal Artery Scan Pulse Rate 108 H Pulse Rate [Right Finger] 124 H Pulse Rate from SpO2 Sensor Respiratory Rate 18 28 H Respiratory Effort / Characteristics Non-Labored Spontaneous Labored Short of Breath Respiratory Depth Normal Respiratory Pattern Regular Blood Pressure 164/87 H Blood Pressure Mean 112 Pulse Oximetry 96 93 99 Oxygen Delivery Method Room Air Room Air Nebulizer Fraction of Inspired Oxygen Sepsis Recent Fever Within 48 Hours No Sepsis New/Unexplained Change in Mental Status No Sepsis Action Taken by Nursing No Action Required 04/16/21 18:30 04/16/21 18:40 04/16/21 20:51 Temperature Temperature Source Pulse Rate 96 H 100 H Pulse Rate [Right Finger] Pulse Rate from SpO2 Sensor 96 H Respiratory Rate 20 Respiratory Effort / Characteristics Spontaneous Respiratory Depth Respiratory Pattern Regular Blood Pressure 133/89 Blood Pressure Mean 103 Pulse Oximetry 100 95 Oxygen Delivery Method Room Air Fraction of Inspired Oxygen 21 Sepsis Recent Fever Within 48 Hours Sepsis New/Unexplained Change in Mental Status Sepsis Action Taken by Jail Medications Current Medication List: was personally reviewed by me Laboratory Data Attestation: I reviewed the patient's lab results. Result diagrams: 04/16/21 17:42 04/16/21 17:42 Lab Results 04/16/21 04/16/21 04/16/21 Range/Units 17:42 17:42 20:19 WBC 10.34 (4.8-10.8) K/uL RBC 5.00 (4.2-5.4) M/uL Hgb 15.0 (12.0-16.0) g/dL Hct 45.5 (37-47) % MCV 91.0 (80-100) fL MCH 30.0 (25-34) pg MCHC 33.0 (32-36) g/dL RDW Std Deviation 46.5 H (36.4-46.3) fL RDW Coeff of Ahmet 14.0 (11.5-14.5) % Plt Count 429 H (130-400) K/uL MPV 10.9 H (7.4-10.4) fL Immature Gran % (Auto) 0.2 % Neut % (Auto) 55.4 % Lymph % (Auto) 30.9 % [place] % (Auto) 8.5 % Eos % (Auto) 4.4 % Baso % (Auto) 0.6 % Neut # (Auto) 5.72 (1.4-6.5) K/uL Lymph # (Auto) 3.20 (1.2-3.4) K/uL [place] # (Auto) 0.88 H (0.11-0.59) K/uL Eos # (Auto) 0.46 (0-0.5) K/uL Baso # (Auto) 0.06 (0-0.2) K/uL Immature Gran # (Auto) 0.02 (0.00-0.02) K/uL ABG pH (7.35-7.45) ABG pCO2 (35-46) mmHg ABG pO2 (80-95) mmHg ABG HCO3 (19-24) mmol/L ABG O2 Saturation (90-95) % ABG Base Excess (-9-1.8) mEq/L Ojss Test (Pos) Barometric Pressure mm/Hg Oxygen Given Sodium 139 (136-145) mmol/L Potassium 4.3 (3.5-5.1) mmol/L Chloride 106 (98-107) mmol/L Carbon Dioxide 27 (21-32) mmol/L Anion Gap 6.0 (3-11) BUN 13 (7-18) mg/dl Creatinine 1.06 (0.6-1.2) mg/dl Est Cr Clr Drug Dosing 64.0 ml/min Est GFR ( Amer) 72.9 ml/min Est GFR (Non-Af Amer) 62.9 ml/min BUN/Creatinine Ratio 11.8 (10-20) Glucose 97 (70-99) mg/dl Calcium 9.0 (8.5-10.1) mg/dl Magnesium 2.1 (1.8-2.4) mg/dl Total Bilirubin 0.2 (0.2-1) mg/dl AST 14 L (15-37) U/L ALT 23 (12-78) U/L Alkaline Phosphatase 50 (45-117) U/L Troponin I < 0.015 (0-0.045) ng/ml Total Protein 7.6 (6.4-8.2) gm/dl Albumin 3.9 (3.4-5.0) gm/dl Globulin 3.7 (2.5-4.0) gm/dl Albumin/Globulin Ratio 1.1 (0.9-2) COVID-19 Eval Order Covid19 at [facility] SARS-CoV-2 (PCR) (Negative) 04/16/21 04/16/21 Range/Units 20:19 21:29 WBC (4.8-10.8) K/uL RBC (4.2-5.4) M/uL Hgb (12.0-16.0) g/dL Hct (37-47) % MCV (80-100) fL MCH (25-34) pg MCHC (32-36) g/dL RDW Std Deviation (36.4-46.3) fL RDW Coeff of Ahmet (11.5-14.5) % Plt Count (130-400) K/uL MPV (7.4-10.4) fL Immature Gran % (Auto) % Neut % (Auto) % Lymph % (Auto) % [place] % (Auto) % Eos % (Auto) % Baso % (Auto) % Neut # (Auto) (1.4-6.5) K/uL Lymph # (Auto) (1.2-3.4) K/uL [place] # (Auto) (0.11-0.59) K/uL Eos # (Auto) (0-0.5) K/uL Baso # (Auto) (0-0.2) K/uL Immature Gran # (Auto) (0.00-0.02) K/uL ABG pH 7.31 L (7.35-7.45) ABG pCO2 44 (35-46) mmHg ABG pO2 59 L (80-95) mmHg ABG HCO3 22 (19-24) mmol/L ABG O2 Saturation 89.6 L (90-95) % ABG Base Excess -4.6 (-9-1.8) mEq/L Joss Test Pos (Pos) Barometric Pressure 734.8 mm/Hg Oxygen Given ROOM AIR Sodium (136-145) mmol/L Potassium (3.5-5.1) mmol/L Chloride (98-107) mmol/L Carbon Dioxide (21-32) mmol/L Anion Gap (3-11) BUN (7-18) mg/dl Creatinine (0.6-1.2) mg/dl Est Cr Clr Drug Dosing ml/min Est GFR ( Amer) ml/min Est GFR (Non-Af Amer) ml/min BUN/Creatinine Ratio (10-20) Glucose (70-99) mg/dl Calcium (8.5-10.1) mg/dl Magnesium (1.8-2.4) mg/dl Total Bilirubin (0.2-1) mg/dl AST (15-37) U/L ALT (12-78) U/L Alkaline Phosphatase (45-117) U/L Troponin I (0-0.045) ng/ml Total Protein (6.4-8.2) gm/dl Albumin (3.4-5.0) gm/dl Globulin (2.5-4.0) gm/dl Albumin/Globulin Ratio (0.9-2) COVID-19 Eval Order SARS-CoV-2 (PCR) NEGATIVE (Negative) Administered Medications Sodium Chloride (Nss 1000ml) 1,000 mls @ 50 mls/hr IV .Q20H ONE Stop: 04/17/21 18:26 Last Admin: 04/16/21 23:15 Dose: 50 mls/hr Documented by: [id number] Tramadol HCl (Tramadol Hcl 50 Mg Tablet) 25 mg PO Q4H PRN PRN Reason: Pain Stop: 05/16/21 22:26 Last Admin: 04/16/21 23:16 Dose: 25 mg Documented by: [id number] Discontinued Medications Albuterol (Albut/Ipratrop 3mg/0.5mg Neb 3 Ml Vial) 12 ml INH ONE STA Stop: 04/16/21 17:29 Last Admin: 04/16/21 17:34 Dose: 12 ml Documented by: [id number] Albuterol (Albut/Ipratrop 3mg/0.5mg Neb 3 Ml Vial) Confirm Administered Dose 12 ml .ROUTE .STK-MED ONE Stop: 04/16/21 17:32 Last Admin: 04/16/21 17:45 Dose: Not Given Documented by: [id number] Sodium Chloride (Nss 1000ml) 1,000 mls @ 999 mls/hr IV .Q1H1M ADELE Stop: 04/16/21 18:30 Last Infusion: 04/16/21 18:51 Dose: 0 mls/hr Documented by: [id number] Admin: 04/16/21 17:50 Dose: 999 mls/hr Documented by: [id number] Magnesium Sulfate/Dextrose (Magnesium Sulfate / D5w) 1 gm in 100 mls @ 100 mls/hr IV Q1H ADELE Stop: 04/16/21 19:29 Last Infusion: 04/16/21 19:39 Dose: 0 mls/hr Documented by: [id number] Admin: 04/16/21 18:39 Dose: 100 mls/hr Documented by: [id number] Infusion: 04/16/21 18:39 Dose: 100 mls/hr Documented by: [id number] Admin: 04/16/21 17:50 Dose: 100 mls/hr Documented by: [id number] Doxycycline Hyclate 100 mg/ (Dextrose) 110 mls @ 50 mls/hr IV NOW STA Stop: 04/16/21 23:22 Last Admin: 04/16/21 21:49 Dose: 50 mls/hr Documented by: [id number] Ioversol (Optiray 320 125ml) 119 ml IV ONCE ONE Stop: 04/16/21 20:48 Last Admin: 04/16/21 20:47 Dose: 1 ml Documented by: [id number] Methylprednisolone (Methylprednisolone 125 Mg/2 Ml Vial) 125 mg IV NOW STA Stop: 04/16/21 17:29 Last Admin: 04/16/21 17:50 Dose: 125 mg Documented by: [id number] Imaging Data Radiologist's Impression: Chest X-Ray 04/16/21 17:28 XR chest 1V portable HISTORY: 45 years-old Female Dyspnea acute shortness of breath COMPARISON: Chest radiograph 04/05/2020 TECHNIQUE: Portable AP view of the chest FINDINGS: Cardiac mediastinal and hilar silhouettes are within normal limits. Calcified plaque of the thoracic aorta. No pneumothorax, pleural effusion, airspace consolidation or overt pulmonary edema. The bones of the chest appear grossly intact. IMPRESSION: No acute process. ACT 112: Negative or not required by law. The above report was generated using voice recognition software. It may contain grammatical, syntax or spelling errors. Electronically signed by: Dimitrios Singh M.D. 04/16/2021 6:25 PM Discharge Plan Visit Data Chief Complaint: Shortness of Breath/Dyspnea Stated Complaint: COPD ED Provider: Vinod Mike Discharge Problem: Acute respiratory failure with hypoxia, COPD (chronic obstructive pulmonary disease) Patient Disposition: Admitted As Inpatient Discharge Instructions Interventions: ED Discharge Assessment Last Done: 04/16/21 22:07
[2021-04-16] MEDS ORDERED: ALBUT/IPRATROP 3MG/0.5MG NEB 3 ML VIAL INH STA (17:28)
[2021-04-16] MEDS ORDERED: methylPREDNISolone 125 MG/2 ML VIAL IV STA (17:28)
[2021-04-16] MEDS ORDERED: SODIUM CHLORIDE 0.9% 1000ML 1,000 ML IV SCH (17:30)
[2021-04-16] MEDS ORDERED: ALBUT/IPRATROP 3MG/0.5MG NEB 3 ML VIAL ONE (17:31)
[2021-04-16] MEDS: MAGNESIUM SULFATE / D5W 1 GM/100 ML BAG IV SCH ×2 (17:50→18:39)
[2021-04-16 18:18] LABS: Basophils # (auto) 0.06 K/uL (0-0.2); Basophils % (auto) 0.6 %; Eosinophils # (auto) 0.46 K/uL (0-0.5); Eosinophils % (auto) 4.4 %; Hematocrit (blood only) 45.5 % (37-47); Immature Granulocytes # (auto) 0.02 K/uL (0.00-0.02); Immature Granulocytes % (auto) 0.2 %; Lymphocytes % (auto) 30.9 %; Mean Platelet Volume 10.9 fL (7.4-10.4); Monocytes # (auto) 0.88 K/uL (0.11-0.59); Monocytes % (auto) 8.5 %; Neutrophils # (auto) 5.72 K/uL (1.4-6.5); Neutrophils % (auto) 55.4 %; Platelet Count 429 K/uL (130-400); RDW Standard Deviation 46.5 fL (36.4-46.3); White Blood Count 10.34 K/uL (4.8-10.8)
--- NOTE | 2021-04-16 18:27 | XRay Report ---
XR chest 1V portable HISTORY: 45 years-old Female Dyspnea acute shortness of breath COMPARISON: Chest radiograph 04/05/2020 TECHNIQUE: Portable AP view of the chest FINDINGS: Cardiac mediastinal and hilar silhouettes are within normal limits. Calcified plaque of the thoracic aorta. No pneumothorax, pleural effusion, airspace consolidation or overt pulmonary edema. The bones of the chest appear grossly intact. IMPRESSION: No acute process. ACT 112: Negative or not required by law. The above report was generated using voice recognition software. It may contain grammatical, syntax o r spelling errors. Electronically signed by: Dimitrios Singh M.D. 04/16/2021 6:25 PM
[2021-04-16 18:34] LABS: Alanine Aminotransferase 23 U/L (12-78); Albumin Level 3.9 gm/dl (3.4-5.0); Aspartate Aminotransferase 14 U/L (15-37); BUN Creatinine Ratio 11.8 (10-20); Blood Urea Nitrogen 13 mg/dl (7-18); Carbon Dioxide 27 mmol/L (21-32); Chloride 106 mmol/L (98-107); Est GFR (African American) 72.9 ml/min; Est GFR (Non-African American) 62.9 ml/min; Glucose 97 mg/dl (70-99); Potassium 4.3 mmol/L (3.5-5.1); Sodium 139 mmol/L (136-145)
[2021-04-16 18:38] LABS: Albumin Globulin Ratio 1.1 (0.9-2); Alkaline Phosphatase 50 U/L (45-117); Bilirubin,Total 0.2 mg/dl (0.2-1); Globulin 3.7 gm/dl (2.5-4.0); Total Protein 7.6 gm/dl (6.4-8.2); Troponin I < 0.015 ng/ml (0-0.045)
--- NOTE | 2021-04-16 20:33 | History & Physical Report ---
Date of Service April 16, 2021 Assessment & Plan (1) Acute hypoxemic respiratory failure: Plan: Secondary to COPD exacerbation/complicated bronchitis No overt sepsis for now Ongoing tobacco abuse Medical telemetry Supplemental O2 Baseline ABG Doxycycline, nebs, prednisone course Pulmonary consult if without improvement Nicotine gum as needed DVT prophylaxis. Lovenox subcu Full code Text document was generated using AnchorFree voice recognition software. It may contain grammatical or spelling errors. Kindly contact undersigned for clarification of any documentation item in question. History of Present Illness Chief Complaint: Cough, worsening shortness of breath Primary Care Provider: Fannie Garcia PA-C History obtained from patient and records. Medical history significant for COPD, chronic back pain, ongoing tobacco abuse. Last confinement March 2020 for syncope secondary to COPD exacerbation. 1 week history of junky cough symptoms with pleuritic chest pain and shortness of breath. No unusual leg swelling. Patient has not had COVID-19 vaccination. No known sick contacts. Patient consulted ER for evaluation. O2 sats 80s on room air at 1 point. Solu-Medrol, neb treatment given at the ER. 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, currently unemployed Allergies Allergy/AdvReac Type Severity Reaction Status Date / Time acetaminophen [From Tylenol] Allergy Mild Rash Unverified 04/16/21 20:01 Home Medications Medication Instructions Recorded Confirmed Type albuterol sulfate 2.5 mg INHALATION QID PRN 06/02/18 04/16/21 History qwwigak-vnkqoxwtrqvyw-qzhanmoo 250 2 tab PO BID PRN 06/02/18 04/16/21 History mg-250 mg-65 mg tablet (Excedrin Migraine) albuterol sulfate 90 mcg/actuation 2 puff INHALATION Q6H PRN #1 06/29/19 04/16/21 Rx aerosol inhaler inhaler ibuprofen 200 mg tablet 600 mg PO Q6H PRN 04/04/20 04/16/21 History loratadine 10 mg tablet 10 mg PO DAILY 04/04/20 04/16/21 History fluticasone 250 mcg-salmeterol 50 1 inh INHALATION BID #1 inhaler 04/06/20 04/16/21 Rx mcg/dose blistr powdr for inhalation (Advair Diskus) lisinopril 5 mg tablet 5 mg PO DAILY 04/16/21 04/16/21 History Past Med/Surg History Medical History (Updated 04/17/21 @ 08:50 by Barry Howell MD) Arthritis Asthma COPD (chronic obstructive pulmonary disease) Surgical History Previous section S/P cholecystectomy Tubal ligation status Family History Father Heart disease Hypertension Social History Smoking Status: Current every day smoker Tobacco Type: Cigarettes Cigarettes Per Day: 20; Second Hand Exposure: No; Do You Dip or Chew Tobacco: No; Tobacco Cessation Education Requested by Patient: No Hx Alcohol Use: Yes Alcohol type: beer Hx Substance Use: No Preferred Language: Cape Verdean Communication Ability: Effective Herb Doctor Required: No Beliefs That Will Affect Care: None Current Living Situation: Significant Other Current Living Situation Comment: friend Other Information That Helps Us Care for You: No Feels Safe at Home: Yes Safety Concerns: Feels Safe At This Time Assistive Devices: Oxygen - Continuous Review of Systems Review of Systems: As per HPI, all 10 systems reviewed, all other ROS negative Physical Exam Physical Exam: GENERAL: Comfortable, obese, no respiratory distress SKIN: Normal color, warm HEENT: [place] palpebral conjunctivae, no ptosis, dry buccal mucosa NECK : Supple, short neck, no tenderness CHEST : Decreased breath sounds, occasional expiratory wheezes, no tenderness HEART : RRR, no obvious murmurs ABDOMEN: Some distention, nontender EXTREMITIES : No LE swelling/tenderness, no other conspicuous deformities noted NEUROLOGIC : Coherent, no facial asymmetry, no other gross focality Results & Data Results & Data ([facility]) Vital Signs (Past 12 Hours) Vital Signs Temp Pulse Pulse Resp BP Pulse Ox 04/16/21 18:40 100 H 20 95 04/16/21 17:44 99 04/16/21 17:35 124 H 28 H 93 04/16/21 17:20 36.1 C L 108 H 18 164/87 H 96 Laboratory Results Laboratory Results WBC 10.34 K/uL (4.8-10.8) 04/16/21 17:42 RBC 5.00 M/uL (4.2-5.4) 04/16/21 17:42 Hgb 15.0 g/dL (12.0-16.0) 04/16/21 17:42 Hct 45.5 % (37-47) 04/16/21 17:42 MCV 91.0 fL (80-100) 04/16/21 17:42 MCH 30.0 pg (25-34) 04/16/21 17:42 MCHC 33.0 g/dL (32-36) 04/16/21 17:42 RDW Std Deviation 46.5 fL (36.4-46.3) H 04/16/21 17:42 RDW Coeff of Ahmet 14.0 % (11.5-14.5) 04/16/21 17:42 Plt Count 429 K/uL (130-400) H 04/16/21 17:42 MPV 10.9 fL (7.4-10.4) H 04/16/21 17:42 Immature Gran % (Auto) 0.2 % 04/16/21 17:42 Neut % (Auto) 55.4 % 04/16/21 17:42 Lymph % (Auto) 30.9 % 04/16/21 17:42 [place] % (Auto) 8.5 % 04/16/21 17:42 Eos % (Auto) 4.4 % 04/16/21 17:42 Baso % (Auto) 0.6 % 04/16/21 17:42 Neut # (Auto) 5.72 K/uL (1.4-6.5) 04/16/21 17:42 Lymph # (Auto) 3.20 K/uL (1.2-3.4) 04/16/21 17:42 [place] # (Auto) 0.88 K/uL (0.11-0.59) H 04/16/21 17:42 Eos # (Auto) 0.46 K/uL (0-0.5) 04/16/21 17:42 Baso # (Auto) 0.06 K/uL (0-0.2) 04/16/21 17:42 Immature Gran # (Auto) 0.02 K/uL (0.00-0.02) 04/16/21 17:42 Sodium 139 mmol/L (136-145) 04/16/21 17:42 Potassium 4.3 mmol/L (3.5-5.1) 04/16/21 17:42 Chloride 106 mmol/L (98-107) 04/16/21 17:42 Carbon Dioxide 27 mmol/L (21-32) 04/16/21 17:42 Anion Gap 6.0 (3-11) 04/16/21 17:42 BUN 13 mg/dl (7-18) 04/16/21 17:42 Creatinine 1.06 mg/dl (0.6-1.2) 04/16/21 17:42 Est Cr Clr Drug Dosing 64.0 ml/min 04/16/21 17:42 Est GFR ( Amer) 72.9 ml/min 04/16/21 17:42 Est GFR (Non-Af Amer) 62.9 ml/min 04/16/21 17:42 BUN/Creatinine Ratio 11.8 (10-20) 04/16/21 17:42 Glucose 97 mg/dl (70-99) 04/16/21 17:42 Calcium 9.0 mg/dl (8.5-10.1) 04/16/21 17:42 Total Bilirubin 0.2 mg/dl (0.2-1) 04/16/21 17:42 AST 14 U/L (15-37) L 04/16/21 17:42 ALT 23 U/L (12-78) 04/16/21 17:42 Alkaline Phosphatase 50 U/L (45-117) 04/16/21 17:42 Troponin I < 0.015 ng/ml (0-0.045) 04/16/21 17:42 Total Protein 7.6 gm/dl (6.4-8.2) 04/16/21 17:42 Albumin 3.9 gm/dl (3.4-5.0) 04/16/21 17:42 Globulin 3.7 gm/dl (2.5-4.0) 04/16/21 17:42 Albumin/Globulin Ratio 1.1 (0.9-2) 04/16/21 17:42 Impressions Chest X-Ray 04/16/21 17:28 XR chest 1V portable HISTORY: 45 years-old Female Dyspnea acute shortness of breath COMPARISON: Chest radiograph 04/05/2020 TECHNIQUE: Portable AP view of the chest FINDINGS: Cardiac mediastinal and hilar silhouettes are within normal limits. Calcified plaque of the thoracic aorta. No pneumothorax, pleural effusion, airspace consolidation or overt pulmonary edema. The bones of the chest appear grossly intact. IMPRESSION: No acute process. ACT 112: Negative or not required by law. The above report was generated using voice recognition software. It may contain grammatical, syntax or spelling errors. Electronically signed by: Dimitrios Singh M.D. 04/16/2021 6:25 PM Diagnostic Findings CTA chest initial read: No pulmonaryembolus or aortic dissection. Aberrant right subclavian artery. Status post cholecystectomyotherwise unremarkable upper abdomen. Areas of Mosaic pattern suggestive of small airwaydisease. This is more obviouswithin the right middle lobe. Differential diagnosis includes subtle pneumonia. Minor degenerative disease otherwise unremarkable bonystructures. EKG as per my interpretation: Rate 85, NSR, normal axis, no ischemia
[2021-04-16] MEDS ORDERED: OPTIRAY 320 125ml IV ONE (20:47)
[2021-04-16 20:50] LABS: Magnesium 2.1 mg/dl (1.8-2.4)
[2021-04-16] MEDS ORDERED: DOXYCYCLINE HYCLATE 100 MG in DEXTROSE 5% 100 ML IV STA (21:11)
[2021-04-16 21:45] LABS: Base Excess ABG -4.6 mEq/L (-9-1.8); HCO3 ABG 22 mmol/L (19-24); Oxygen Saturation ABG 89.6 % (90-95); PCO2 ABG 44 mmHg (35-46); PO2 ABG 59 mmHg (80-95); pH ABG 7.31 (7.35-7.45)
[2021-04-16 21:50] LABS: Allen Test Pos (Pos)
[2021-04-16] MEDS ORDERED: SODIUM CHLORIDE 0.9% 1000ML 1,000 ML IV ONE (22:27)
[2021-04-16 22:43] LABS: Pregnancy Test, Serum Negative (Negative)
[2021-04-16] MEDS: traMADol HCL 50 MG TABLET PO PRN (23:16)
[2021-04-16] MEDS ORDERED: BENZONATATE 100 MG CAPSULE PO PRN (23:53)
[2021-04-17] MEDS ORDERED: XOPENEX/ATROVENT 1.25mg/0.5MG NEB COMBO NEB SCH (01:00)
[2021-04-17] MEDS: IPRATROPIUM BROMIDE NEB SOLN 0.02% 2.5 ML VIAL INH SCH ×4 (01:25→19:20)
[2021-04-17] MEDS: LEVALBUTEROL 1.25MG/0.5ML NEB INH SCH ×4 (01:25→19:19)
[2021-04-17] MEDS: FLUTICASONE/VILANTEROL 200/25MCG 14 PUFFS/INHALER INH SCH (07:53)
[2021-04-17] MEDS: ENOXAPARIN INJ 40 MG/0.4 ML SYR SQ SCH (07:53)
[2021-04-17] MEDS: lisinopril 5 MG TAB PO SCH (07:54)
[2021-04-17] MEDS: LORATADINE 10 MG TAB PO SCH (07:54)
[2021-04-17] MEDS: DOXYCYCLINE HYCLATE 100 MG CAP PO SCH ×2 (07:54→22:14)
--- NOTE | 2021-04-17 07:56 | CT Scan Report ---
CT angio chest PE protocol CT DOSE: 481.35 mGy.cm HISTORY: 45 years-old Female with cp. Acute atypical chest pain TECHNIQUE: Multiple CTA images of the chest were obtained after the intravenous administration of 119 ml Optiray. Coronal and sagittal MIPS were obtained from the axial data set and were submitted for review. All measurements were obtained according to NASCET criteria. A dose lowering technique was u tilized adhering to the principles of ALARA. COMPARISON: Chest radiograph of same day, CTA chest 06/03/2018 FINDINGS: CTA: The segmental and subsegmental pulmonary arterial branches are not well evaluated secondary to contra st bolus timing. No central pulmonary emboli identified. No thoracic aortic aneurysm or dissection. A berrant course of the right subclavian artery.Heart size is normal. CT CHEST: No dominant thyroid nodule is seen. Scattered nonenlarged lymph nodes are likely physiologic. No path ologically adenopathy by CT size criteria. There is no pneumothorax, pleural effusion or focal airsp fidelina consolidation. Mild bronchial wall thickening with bibasilar mucous plugging. Mild air trapping o f the right middle lobe. The imaged upper abdominal structures are normal. Cholecystectomy. The osseous structures appear int act. IMPRESSION: 1. No pulmonary emboli identified. 2. No pleural effusion or airspace consolidation to suggest pneumonia. 3. Bronchial wall thickening with bibasilar predominant mucus plugging suggestive of bronchitis or re active airway disease. Mild associated right basilar air trapping. 4. Cholecystectomy. ACT 112: Negative or not required by law. The above report was generated using voice recognition software. It may contain grammatical, syntax o r spelling errors. Electronically signed by: Dimitrios Singh M.D. 04/17/2021 7:55 AM
[2021-04-17] MEDS ORDERED: predniSONE 20 MG TAB PO SCH (09:00)
[2021-04-17 09:33] LABS: Hematocrit (blood only) 40.7 % (37-47); Hemoglobin 13.4 g/dL (12.0-16.0); Immature Granulocytes # (auto) 0.03 K/uL (0.00-0.02); Immature Granulocytes % (auto) 0.2 %; Lymphocytes # (auto) 1.06 K/uL (1.2-3.4); Lymphocytes % (auto) 7.2 %; Mean Corpuscular Hemoglobin 30.4 pg (25-34); Mean Corpuscular Hgb Conc 32.9 g/dL (32-36); Mean Corpuscular Volume 92.3 fL (80-100); Mean Platelet Volume 10.8 fL (7.4-10.4); Monocytes # (auto) 0.35 K/uL (0.11-0.59); Monocytes % (auto) 2.4 %; Neutrophils # (auto) 13.21 K/uL (1.4-6.5); Neutrophils % (auto) 90.2 %; Platelet Count 432 K/uL (130-400); RDW Standard Deviation 47.1 fL (36.4-46.3); Red Blood Count 4.41 M/uL (4.2-5.4); White Blood Count 14.65 K/uL (4.8-10.8)
[2021-04-17 09:44] LABS: BUN Creatinine Ratio 11.9 (10-20); Calcium 8.4 mg/dl (8.5-10.1); Creatinine Clr Calc Pharmacy 79.3 ml/min; Est GFR (African American) 93.9 ml/min; Potassium 4.2 mmol/L (3.5-5.1)
--- NOTE | 2021-04-17 09:56 | Electrocardiogram Report ---
Test Reason : Blood Pressure : / mmHG Vent. Rate : 085 BPM Atrial Rate : 085 BPM P-R Int : 142 ms QRS Dur : 084 ms QT Int : 384 ms P-R-T Axes : 062 052 054 degrees QTc Int : 456 ms Normal sinus rhythm Normal ECG When compared with ECG of 04-APR-2020 19:15, No significant change was found Confirmed by Shahbaz Claudio ([id number]) on 04/17/2021 9:56:03 AM Referred By: REFERRED SELF Confirmed By:Shahbaz Claudio
--- NOTE | 2021-04-17 10:05 | Hospitalist Progress Note ---
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 See stated that her usual rescue inhaler and other asthma medication did not help. #. Asthma COPD overlap syndrome with exacerbation-more of asthma symptoms #. Acute hypoxemic respiratory failuredoes not use home oxygen, requiring oxygen inpatient Diagnosed with asthma in her teens [13 to 14 years of age] Diagnosed with asthma at age 26 Patient has been smoking since age 11, per patient 1 pack every few days on average and currently 1 pack for few week. Admitting WBC WNL, CTA chest and CXR negative for PE/consolidation. Admitting AB.3 //89.6 Admitting EKG NSR, 85 bpm, QTC 456. Patient still wheezing with crackles, cough with clear sputum Continue with Doxy, will put her on IV steroid for nowtransition to p.o. when appropriate, continue with nebulization and other supportive management. Wean down oxygen as tolerated. #. Elevated WBC Presentation 10.3 4K, elevated to 14.6 5K today Secondary to steroid We will keep an eye on it If it elevates significantly send pro-Prakash DVT prophylaxis Lovenox Full code Disposition: Anticipate discharge to home in 1 to 2 days unless no new issues arises. Admission and Anticipated Discharge Date Admission Date: April 16, 2021 Subjective Patient was lying in bed, on 3 L nasal cannula oxygen, NAD, seemed upset. Reports improvement in her wheezing and cough. No acute events overnight. Denies fever/chills/chest pain/belly pain/other review of symptoms. Physical Exam Physical Exam: GENERAL: Alert and oriented x3. NAD, on 3 L nasal cannula [no baseline home oxygen]. HEENT: No pallor, no icterus. Pupils equal, round and reactive to light. Oral mucosa moist. NECK: No JVD, no neck masses. HEART: S1 and S2 heard. Regular rate and rhythm. No murmur, no gallop. RESPIRATORY SYSTEM: Normal AP diameter. No accessory muscle use. Occasional crackles and wheezing diffuse and bilateral. ABDOMEN: Soft, bowel sounds present, nontender, no distention. CENTRAL NERVOUS SYSTEM: Alert and oriented x3. No facial droop. Speech is clear. Obeys simple commands. Moves extremities. EXTREMITIES: No edema, no erythema seen. Results & Data Results & Data ([facility]) Vital Signs (Past 12 Hours) Vital Signs Temp Pulse Pulse Resp BP BP Pulse Ox 04/17/21 07:39 36.8 C 85 18 131/85 90 04/17/21 07:26 90 18 96 04/17/21 03:43 36.6 C 90 18 133/84 93 04/17/21 01:29 112 H 28 H 83 L 04/17/21 00:22 104 H 04/16/21 22:27 36.6 C 96 H 20 150/80 H 91 Pulse Ox 04/17/21 07:39 04/17/21 07:26 04/17/21 03:43 04/17/21 01:29 04/17/21 00:22 04/16/21 22:27 95
[2021-04-17] MEDS: traMADol HCL 50 MG TABLET PO PRN (16:36)
[2021-04-17] MEDS: methylPREDNISolone 40 MG in SYRINGE 0 ML IV SCH (19:24)
[2021-04-18] MEDS: IPRATROPIUM BROMIDE NEB SOLN 0.02% 2.5 ML VIAL INH SCH ×4 (00:10→20:43)
[2021-04-18] MEDS: LEVALBUTEROL 1.25MG/0.5ML NEB INH SCH ×4 (00:10→20:43)
[2021-04-18 08:18] LABS: Hematocrit (blood only) 42.9 % (37-47); Hemoglobin 14.5 g/dL (12.0-16.0); Mean Corpuscular Hemoglobin 30.8 pg (25-34); Mean Corpuscular Hgb Conc 33.8 g/dL (32-36); Mean Corpuscular Volume 91.1 fL (80-100); Mean Platelet Volume 10.4 fL (7.4-10.4); Platelet Count 414 K/uL (130-400); RDW Standard Deviation 46.5 fL (36.4-46.3); Red Blood Count 4.71 M/uL (4.2-5.4); White Blood Count 19.56 K/uL (4.8-10.8)
[2021-04-18] MEDS: methylPREDNISolone 40 MG in SYRINGE 0 ML IV SCH ×2 (08:19→15:53)
[2021-04-18 08:44] LABS: BUN Creatinine Ratio 11.4 (10-20); Calcium 8.9 mg/dl (8.5-10.1); Creatinine Clr Calc Pharmacy 80.9 ml/min; Est GFR (African American) 96.6 ml/min; Est GFR (Non-African American) 83.3 ml/min; Magnesium 2.3 mg/dl (1.8-2.4); Potassium 3.8 mmol/L (3.5-5.1)
[2021-04-18] MEDS: ENOXAPARIN INJ 40 MG/0.4 ML SYR SQ SCH (09:35)
[2021-04-18] MEDS: FLUTICASONE/VILANTEROL 200/25MCG 14 PUFFS/INHALER INH SCH (09:36)
[2021-04-18] MEDS: DOXYCYCLINE HYCLATE 100 MG CAP PO SCH ×2 (09:41→21:16)
[2021-04-18] MEDS: LORATADINE 10 MG TAB PO SCH (09:41)
[2021-04-18] MEDS: lisinopril 5 MG TAB PO SCH (09:41)
--- NOTE | 2021-04-18 10:27 | Hospitalist Progress Note ---
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 See stated that her usual rescue inhaler and other asthma medication did not help. #. Asthma COPD overlap syndrome with exacerbation-more of asthma symptoms #. Acute hypoxemic respiratory failuredoes not use home oxygen, requiring oxygen inpatient Diagnosed with asthma in her teens [13 to 14 years of age] Diagnosed with asthma at age 26 Patient has been smoking since age 11, per patient 1 pack every few days on average and currently 1 pack for few week. Admitting WBC WNL, CTA chest and CXR negative for PE/consolidation. Admitting AB.3 //89.6 Admitting EKG NSR, 85 bpm, QTC 456. Patient still wheezing with crackles, cough with clear sputum -cough not getting controlled. Will hold lisinopril. Palm consultedappreciate recommendation. Continue with Doxy, increase the frequency on IV steroid, continue with nebulization and other supportive management. Wean down oxygen as tolerated. #. Elevated WBC Presentation 10.3 4K, elevated to nearly 20,000 today. Secondary to steroid, pro-Prakash negative We will keep an eye on it If it elevates significantly send pro-Prakash DVT prophylaxis Lovenox Full code Disposition: Anticipate discharge to home in 1 to 2 days unless no new issues arises. Admission and Anticipated Discharge Date Admission Date: April 16, 2021 Subjective Patient was lying in bed, very irritated, was angry. On 3 L nasal cannula oxygen. Overnight patient had multiple bouts of cough and was not able to sleep. And patient reports that she is sleeping in the morning but is getting disturbed a lot and hence is very angry. Denies other review of symptoms. Physical Exam Physical Exam: GENERAL: Alert and oriented x3. NAD, on 3 L nasal cannula [no baseline home oxygen]. HEENT: No pallor, no icterus. Pupils equal, round and reactive to light. Oral mucosa moist. NECK: No JVD, no neck masses. HEART: S1 and S2 heard. Regular rate and rhythm. No murmur, no gallop. RESPIRATORY SYSTEM: Normal AP diameter. No accessory muscle use. Occasional wheezing diffuse and bilateral. Dry cough multiple times at bedside exam. ABDOMEN: Soft, bowel sounds present, nontender, no distention. CENTRAL NERVOUS SYSTEM: Alert and oriented x3. No facial droop. Speech is clear. Obeys simple commands. Moves extremities. EXTREMITIES: No edema, no erythema seen. Results & Data Results & Data ([facility]) Vital Signs (Past 12 Hours) Vital Signs Temp Pulse Pulse Resp BP Pulse Ox 04/18/21 08:35 98 H 16 98 04/18/21 08:15 36.9 C 68 18 120/77 98 04/18/21 07:28 81 04/18/21 04:55 36.8 C 68 18 122/83 97 04/18/21 01:33 101 H 04/18/21 00:12 97 H 18 95 04/17/21 23:08 36.7 C 96 H 18 125/82 96
[2021-04-18] MEDS: guaiFENesin 600 MG TABCR PO SCH ×2 (12:11→21:16)
[2021-04-18] MEDS: traMADol HCL 50 MG TABLET PO PRN (12:14)
--- NOTE | 2021-04-18 12:53 | Pulmonary Consultation ---
Date of Consultation April 18, 2021 Assessment & Plan (1) Acute hypoxemic respiratory failure: (2) Acute asthma exacerbation: (3) Tobacco abuse: (4) Recurrent non-productive cough: 45-year-old female with history of tobacco abuse, asthma and possible COPD who presented to the hospital due to an asthma exacerbation. Agree with IV Solu-Medrol at this time. Hopefully, she can transition to p.o. prednisone in the next 1 to 2 days. Agree with Mucinex 1200 mg twice daily. I added Incruse Ellipta to her regimen and Brio Ellipta while in the hospital. Recommend increasing her to Advair 500/50 twice daily upon discharge. Spiriva Respimat 1.25 mcg, 2 puffs daily can be added to her inhaler regimen as well upon discharge. She would benefit from outpatient PFTs. Complete tobacco cessation is strongly encouraged. Upper airway cough syndrome may be playing a role in her symptoms. Consider trial of Flonase, chlorpheniramine and pseudoephedrine for 1 to 2 weeks. Please discontinue lisinopril as KD inhibitor induced cough can be playing a role as well. I reviewed her CT chest personally. There is no evidence of acute infiltrate. Air trapping was noted most prominently in her right middle lobe and lingula. Doxycycline 100 mg twice daily is reasonable at this time to treat for atypical bacterial causes of infection. COVID-19 testing was negative. I discussed her case with the patient's RN and hospitalist, Dr. Álvarez. Thank you for the consultation. Pulmonary will sign off at this time. History of Present Illness Reason for Consultation: Acute hypoxia and asthma exacerbation Attending Physician: Karuna Álvarez MD History of Present Illness 45-year-old female with a past medical history of asthma and COPD. She was diagnosed with asthma in her teens. She is a heavy smoker and smokes roughly 1 pack/day. She smoked since the age of 11. She presented to the hosp ital due to cough for the past month with increasing shortness of breath. She was actually discharged in April for similar symptoms. She is currently on doxycycline and IV steroids. Pulmonary was consulted for further management. History obtained from the patient is limited. The patient was coughing significantly during my interview with her. I kindly asked her to put on a facemask and she refused to do so. I then asked her history regarding the frequency of her asthma exacerbations and whether she has previously had PFTs. The patient became belligerent at this point and started saying profanities. At this point I excused myself from the room. In discussion with the hospitalist and nursing staff, she has been very irritated and angry today. Stress echo was completed last month. LVEF was normal. Negative for inducible ischemia. Chest CTA completed on demonstrated mosaic attenuation. No pulmonary emboli. Bronchial wall thickening noted. She is currently on Solu-M edrol 40 mg every 8 hours. Breo Ellipta [id number] 1 puff twice daily. Nebs are ordered every every 6 hours. No outpatient PFTs available for review. She is on Advair 250-50 mcg twice daily as an outpatient. She is also on loratadine and albuterol as needed. Allergies Allergy/AdvReac Type Severity Reaction Status Date / Time acetaminophen [From Tylenol] Allergy Mild Rash Unverified 04/16/21 20:01 Home Medications Medication Instructions Recorded Confirmed Type albuterol sulfate 2.5 mg INHALATION QID PRN 06/02/18 04/16/21 History ngrspzr-ycjhmotfkzupt-nyiihjno 250 2 tab PO BID PRN 06/02/18 04/16/21 History mg-250 mg-65 mg tablet (Excedrin Migraine) albuterol sulfate 90 mcg/actuation 2 puff INHALATION Q6H PRN #1 06/29/19 04/16/21 Rx aerosol inhaler inhaler ibuprofen 200 mg tablet 600 mg PO Q6H PRN 04/04/20 04/16/21 History loratadine 10 mg tablet 10 mg PO DAILY 04/04/20 04/16/21 History fluticasone 250 mcg-salmeterol 50 1 inh INHALATION BID #1 inhaler 04/06/20 04/16/21 Rx mcg/dose blistr powdr for inhalation (Advair Diskus) lisinopril 5 mg tablet 5 mg PO DAILY 04/16/21 04/16/21 History Patient History Medical History (Updated 04/18/21 @ 13:33 by Boone Archibald MD) Acute asthma exacerbation Arthritis Asthma COPD (chronic obstructive pulmonary disease) Recurrent non-productive cough Tobacco abuse Surgical History Previous section S/P cholecystectomy Tubal ligation status Family History Father Heart disease Hypertension Social History Smoking Status: Current every day smoker Tobacco Type: Cigarettes Cigarettes Per Day: 20; Second Hand Exposure: No; Do You Dip or Chew Tobacco: No; Tobacco Cessation Education Requested by Patient: No Hx Alcohol Use: Yes Alcohol type: beer Hx Substance Use: No Preferred Language: Beninese Communication Ability: Effective Cipher Expert Required: No Beliefs That Will Affect Care: None Current Living Situation: Significant Other Current Living Situation Comment: friend Other Information That Helps Us Care for You: No Feels Safe at Home: Yes Safety Concerns: Feels Safe At This Time Assistive Devices: None Review of Systems Review of Systems: Limited given the limited history was also obtained from the patient. Please see the hospitalist note from the same day. Physical Exam Physical Exam: Physical exam was limited. I did note to the patient was coughing throughout the discussion. She did not appear to be in any significant respiratory distress. She had a nasal cannula in place at 3 L/min. Results & Data Results & Data ([facility]) Vital Signs (Past 12 Hours) Vital Signs Temp Pulse Pulse Resp BP Pulse Ox 04/18/21 11:58 82 17 135/90 94 04/18/21 08:35 98 H 16 98 04/18/21 08:15 98.4 F 68 18 120/77 98 04/18/21 07:28 81 04/18/21 04:55 98.2 F 68 18 122/83 97 04/18/21 01:33 101 H vital signs, labs and urine were personally reviewed PG Care Time/CCT Total # of Minutes Spent Total Time Spent with Patient: Total time spent is greater than 50% in coordination of care (as documented) at patient's floor/unit and/or counseling patient: Coding Level of Care Code 77774 Inpt Consult Level 3 Diagnoses Acute hypoxemic respiratory failure J96.01 Acute asthma exacerbation J45.901 Tobacco abuse Z72.0 Recurrent non-productive cough R05 Time Spent (min) 31
[2021-04-18] MEDS: UMECLIDINIUM BROMIDE 62.5MCG/BLISTER 7 PUFFS/INHALER INH SCH (15:52)
[2021-04-19] MEDS: LEVALBUTEROL 1.25MG/0.5ML NEB INH SCH ×4 (00:14→20:59)
[2021-04-19] MEDS: IPRATROPIUM BROMIDE NEB SOLN 0.02% 2.5 ML VIAL INH SCH ×4 (00:15→20:59)
[2021-04-19] MEDS: methylPREDNISolone 40 MG in SYRINGE 0 ML IV SCH ×4 (00:28→23:58)
[2021-04-19] MEDS: DOXYCYCLINE HYCLATE 100 MG CAP PO SCH ×2 (07:47→20:22)
[2021-04-19] MEDS: ENOXAPARIN INJ 40 MG/0.4 ML SYR SQ SCH (07:48)
[2021-04-19] MEDS: FLUTICASONE/VILANTEROL 200/25MCG 14 PUFFS/INHALER INH SCH (07:48)
[2021-04-19] MEDS: UMECLIDINIUM BROMIDE 62.5MCG/BLISTER 7 PUFFS/INHALER INH SCH (07:49)
[2021-04-19] MEDS: guaiFENesin 600 MG TABCR PO SCH ×2 (07:49→20:22)
[2021-04-19] MEDS: LORATADINE 10 MG TAB PO SCH (07:49)
[2021-04-19] MEDS: traMADol HCL 50 MG TABLET PO PRN (07:55)
[2021-04-19 08:18] LABS: Hematocrit (blood only) 46.6 % (37-47); Hemoglobin 15.6 g/dL (12.0-16.0); Mean Corpuscular Hemoglobin 30.8 pg (25-34); Mean Corpuscular Hgb Conc 33.5 g/dL (32-36); Mean Corpuscular Volume 91.9 fL (80-100); Mean Platelet Volume 10.9 fL (7.4-10.4); Platelet Count 391 K/uL (130-400); RDW Coefficient of Variation 13.9 % (11.5-14.5); Red Blood Count 5.07 M/uL (4.2-5.4); White Blood Count 21.55 K/uL (4.8-10.8)
[2021-04-19 08:53] LABS: Creatinine Clr Calc Pharmacy 72.3 ml/min; Est GFR (African American) 84.3 ml/min; Est GFR (Non-African American) 72.8 ml/min
--- NOTE | 2021-04-19 17:48 | Hospitalist Progress Note ---
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 See stated that her usual rescue inhaler and other asthma medication did not help. #. Asthma COPD overlap syndrome with exacerbation-more of asthma symptoms #. Acute hypoxemic respiratory failuredoes not use home oxygen, requiring oxygen inpatient Diagnosed with asthma in her teens [14 to 14 years of age] Diagnosed with asthma at age 26 Patient has been smoking since age 11, per patient 1 pack every few days on average and currently 1 pack for few week. Admitting WBC WNL, CTA chest and CXR negative for PE/consolidation. Admitting AB.3 //89.6 Admitting EKG NSR, 85 bpm, QTC 456. Pulmonology on board: Transition to p.o. steroid when able, added Incruse Ellipta and Breo Ellipta. Recommends increasing Advair to 500/50 twice daily and adding Spiriva Respimat 1.25 MCG, 2 puffs daily upon discharge. Recommends outpatient PFTs. Continue with Doxy, twice daily steroid tomorrow, continue with nebulization and other supportive management. Wean down oxygen as tolerated. Encourage complete tobacco cessation and outpatient pulmonology follow-up. #. Elevated WBC Presentation 10.3 4K, elevated to nearly 20,000 today. Secondary to steroid, pro-Prakash negative We will keep an eye on it If it elevates significantly send pro-Prakash DVT prophylaxis Lovenox Full code Disposition: Anticipate discharge to home in next 1 to 2 days unless no new issues arises. Admission and Anticipated Discharge Date Admission Date: April 16, 2021 Subjective Patient was lying in bed, on 2 L nasal cannula oxygen, NAD, fairly calm today. No new issues overnight. Patient reports her cough improving somewhat. Denies other review of symptoms. At Physical Exam Physical Exam: GENERAL: Alert and oriented x3. NAD, on 2 L nasal cannula [no baseline home oxygen]. HEENT: No pallor, no icterus. Pupils equal, round and reactive to light. Oral mucosa moist. NECK: No JVD, no neck masses. HEART: S1 and S2 heard. Regular rate and rhythm. No murmur, no gallop. RESPIRATORY SYSTEM: Normal AP diameter. No accessory muscle use. Occasional wheezing. ABDOMEN: Soft, bowel sounds present, nontender, no distention. CENTRAL NERVOUS SYSTEM: Alert and oriented x3. No facial droop. Speech is clear. Obeys simple commands. Moves extremities. EXTREMITIES: No edema, no erythema seen. Results & Data Results & Data ([facility]) Vital Signs (Past 12 Hours) Vital Signs Temp Pulse Pulse Resp BP Pulse Ox 04/19/21 15:49 107 H 04/19/21 15:41 36.7 C 92 H 18 124/80 96 04/19/21 12:40 94 H 16 97 04/19/21 11:00 36.2 C L 80 18 142/86 H 98 04/19/21 07:36 36.9 C 81 20 119/77 97 04/19/21 07:26 72 04/19/21 07:16 96 H 16 98
[2021-04-19] MEDS ORDERED: FAMOTIDINE 20 MG TAB PO STA (20:27)
[2021-04-20] MEDS: IPRATROPIUM BROMIDE NEB SOLN 0.02% 2.5 ML VIAL INH SCH ×4 (00:47→19:50)
[2021-04-20] MEDS: LEVALBUTEROL 1.25MG/0.5ML NEB INH SCH ×4 (00:47→19:49)
[2021-04-20] MEDS: methylPREDNISolone 40 MG in SYRINGE 0 ML IV SCH ×2 (08:02→20:21)
[2021-04-20] MEDS: traMADol HCL 50 MG TABLET PO PRN (08:02)
[2021-04-20] MEDS: LORATADINE 10 MG TAB PO SCH (08:03)
[2021-04-20] MEDS: guaiFENesin 600 MG TABCR PO SCH ×2 (08:03→20:21)
[2021-04-20] MEDS: DOXYCYCLINE HYCLATE 100 MG CAP PO SCH ×2 (08:03→20:21)
[2021-04-20] MEDS: FLUTICASONE/VILANTEROL 200/25MCG 14 PUFFS/INHALER INH SCH (08:04)
[2021-04-20] MEDS: ENOXAPARIN INJ 40 MG/0.4 ML SYR SQ SCH (08:04)
[2021-04-20] MEDS: UMECLIDINIUM BROMIDE 62.5MCG/BLISTER 7 PUFFS/INHALER INH SCH (08:05)
[2021-04-20 08:59] LABS: Hematocrit (blood only) 44.4 % (37-47); Hemoglobin 14.9 g/dL (12.0-16.0); Mean Corpuscular Hemoglobin 30.4 pg (25-34); Mean Corpuscular Hgb Conc 33.6 g/dL (32-36); Mean Corpuscular Volume 90.6 fL (80-100); Mean Platelet Volume 10.7 fL (7.4-10.4); Platelet Count 360 K/uL (130-400); RDW Coefficient of Variation 13.5 % (11.5-14.5); RDW Standard Deviation 44.3 fL (36.4-46.3)
--- NOTE | 2021-04-20 13:23 | Hospitalist Progress Note ---
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 See stated that her usual rescue inhaler and other asthma medication did not help. #. Asthma COPD overlap syndrome with exacerbation-more of asthma symptoms #. Acute hypoxemic respiratory failuredoes not use home oxygen, requiring oxygen inpatient Diagnosed with asthma in her teens [13 to 14 years of age] Diagnosed with asthma at age 26 Patient has been smoking since age 11, per patient 1 pack every few days on average and currently 1 pack for few week. Admitting WBC WNL, CTA chest and CXR negative for PE/consolidation. Admitting AB.3 //89.6 Admitting EKG NSR, 85 bpm, QTC 456. Pulmonology on board: Transition to p.o. steroid when able, added Incruse Ellipta and Breo Ellipta. Recommends increasing Advair to 500/50 twice daily and adding Spiriva Respimat 1.25 MCG, 2 puffs daily upon discharge. Recommends outpatient PFTs. Continue with Doxy, p.o. daily steroid tomorrow, continue with nebulization and other supportive management. Wean down oxygen as tolerated to room air. Encourage complete tobacco cessation and outpatient pulmonology follow-up. #. Elevated WBC Presentation 10.3 4K, elevated still Secondary to steroid, pro-Prakash negative Monitor. DVT prophylaxis Lovenox Full code Disposition: Anticipate discharge to home in next 1 day unless no new issues arises. Patient explained the plan of care and she seemed understanding and agreeable. Admission and Anticipated Discharge Date Admission Date: April 16, 2021 Subjective Patient was sitting up in chair, on 2 L oxygen, NAD, no issues overnight. Patient reports marked improvement in her cough with occasional dry cough. Denies shortness of breath/other review of symptoms. Physical Exam Physical Exam: GENERAL: Alert and oriented x3. NAD, on 2 L nasal cannula [no baseline home oxygen]. HEENT: No pallor, no icterus. Pupils equal, round and reactive to light. Oral mucosa moist. NECK: No JVD, no neck masses. HEART: S1 and S2 heard. Regular rate and rhythm. No murmur, no gallop. RESPIRATORY SYSTEM: Normal AP diameter. No accessory muscle use. No wheezing appreciated today. ABDOMEN: Soft, bowel sounds present, nontender, no distention. CENTRAL NERVOUS SYSTEM: Alert and oriented x3. No facial droop. Speech is clear. Obeys simple commands. Moves extremities. EXTREMITIES: No edema, no erythema seen. Results & Data Results & Data ([facility]) Vital Signs (Past 12 Hours) Vital Signs Temp Pulse Resp BP Pulse Ox 04/20/21 13:11 82 18 93 04/20/21 07:03 84 16 98 04/20/21 06:50 36.6 C 86 20 117/75 96 04/20/21 03:59 36.5 C 68 20 117/78 98
[2021-04-20] MEDS ORDERED: FAMOTIDINE 20 MG TAB PO ONE (20:00)
[2021-04-21] MEDS: IPRATROPIUM BROMIDE NEB SOLN 0.02% 2.5 ML VIAL INH SCH ×3 (01:25→12:59)
[2021-04-21] MEDS: LEVALBUTEROL 1.25MG/0.5ML NEB INH SCH ×3 (01:25→12:59)
[2021-04-21 06:33] LABS: Hematocrit (blood only) 46.1 % (37-47); Hemoglobin 15.5 g/dL (12.0-16.0); Mean Corpuscular Hemoglobin 30.7 pg (25-34); Mean Corpuscular Hgb Conc 33.6 g/dL (32-36); Mean Corpuscular Volume 91.3 fL (80-100); Mean Platelet Volume 10.3 fL (7.4-10.4); Platelet Count 436 K/uL (130-400); RDW Coefficient of Variation 13.5 % (11.5-14.5); Red Blood Count 5.05 M/uL (4.2-5.4); White Blood Count 15.32 K/uL (4.8-10.8)
[2021-04-21] MEDS ORDERED: predniSONE 20 MG TAB PO SCH (09:00)
[2021-04-21] MEDS: UMECLIDINIUM BROMIDE 62.5MCG/BLISTER 7 PUFFS/INHALER INH SCH (09:32)
[2021-04-21] MEDS: FLUTICASONE/VILANTEROL 200/25MCG 14 PUFFS/INHALER INH SCH (09:32)
[2021-04-21] MEDS: ENOXAPARIN INJ 40 MG/0.4 ML SYR SQ SCH (09:33)
[2021-04-21] MEDS: DOXYCYCLINE HYCLATE 100 MG CAP PO SCH (09:34)
[2021-04-21] MEDS: guaiFENesin 600 MG TABCR PO SCH (09:35)
[2021-04-21] MEDS: LORATADINE 10 MG TAB PO SCH (09:38)
[2021-04-21] MEDS: traMADol HCL 50 MG TABLET PO PRN (10:07)
--- NOTE | 2021-04-21 19:24 | Discharge Summary ---
Date of Service April 21, 2021 Admission HPI Per Admitting Provider History obtained from patient and records. Medical history significant for COPD, chronic back pain, ongoing tobacco abuse. Last confinement March 2020 for syncope secondary to COPD exacerbation. 1 week history of junky cough symptoms with pleuritic chest pain and shortness of breath. No unusual leg swelling. Patient has not had COVID-19 vaccination. No known sick contacts. Patient consulted ER for evaluation. O2 sats 80s on room air at 1 point. Solu-Medrol, neb treatment given at the ER. 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, currently unemployed Admission Exam Per Admitting Provider GENERAL: Comfortable, obese, no respiratory distress SKIN: Normal color, warm HEENT: [place] palpebral conjunctivae, no ptosis, dry buccal mucosa NECK : Supple, short neck, no tenderness CHEST : Decreased breath sounds, occasional expiratory wheezes, no tenderness HEART : RRR, no obvious murmurs ABDOMEN: Some distention, nontender EXTREMITIES : No LE swelling/tenderness, no other conspicuous deformities noted NEUROLOGIC : Coherent, no facial asymmetry, no other gross focality Principal Diagnosis Acute exacerbation of asthma Discharge Exam GENERAL: Alert and oriented x3. NAD, on room air. HEENT: No pallor, no icterus. Pupils equal, round and reactive to light. Oral mucosa moist. NECK: No JVD, no neck masses. HEART: S1 and S2 heard. Regular rate and rhythm. No murmur, no gallop. RESPIRATORY SYSTEM: Normal AP diameter. No accessory muscle use. No wheezing appreciated today. ABDOMEN: Soft, bowel sounds present, nontender, no distention. CENTRAL NERVOUS SYSTEM: Alert and oriented x3. No facial droop. Speech is clear. Obeys simple commands. Moves extremities. EXTREMITIES: No edema, no erythema seen. 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 See stated that her usual rescue inhaler and other asthma medication did not help. #. Asthma COPD overlap syndrome with exacerbation-more of asthma symptoms #. Acute hypoxemic respiratory failuredoes not use home oxygen, requiring oxygen inpatient Diagnosed with asthma in her teens [13 to 14 years of age] Diagnosed with asthma at age 26 Patient has been smoking since age 11, per patient 1 pack every few days on av erage and currently 1 pack for few week. Admitting WBC WNL, CTA chest and CXR negative for PE/consolidation. Admitting AB.3 //.6 Admitting EKG NSR, 85 bpm, QTC 456. Pulmonology on board: Transition to p.o. steroid when able, added Incruse Ellipta and Breo Ellipta. Recommends increasing Advair to 500/50 twice daily and adding Spiriva Respimat 1.25 MCG, 2 puffs daily upon discharge. Recommends outpatient PFTs. Medicines modify at the time of discharge, patient aware, discussed at the bedside. Encourage complete tobacco cessation and outpatient pulmonology follow-up. #. Elevated WBC Presentation 10.3 4K, elevated still Secondary to steroid, pro-Prakash negative DVT prophylaxis Lovenox Full code Patient discharged home with the following instructions communicated to the patient at the time of discharge: Take your medications as prescribed. Your inhalation medications has been adjusted as discussed during the bedside exam. Follow-up with your primary care physician within a week time. Establish a lung doctor and follow-up for long-term management of your asthma COPD overlap syndrome You will need a PFT done as an outpatient as discussed at bedside. Encourage strict tobacco cessation. If you have any questions or concerns regarding your medications, please call hospital 26/02. Total Time Total Time Spent Total Time Spent (In Minutes): 45 Discharge Plan Discharge Items Patient Disposition: Home - Self-Care Reason For Visit: COPD EXACERBATION Discharge Diagnosis: Acute exacerbation of asthma Activity: Resume your previous activity Non-emergency contact: Primary Care Provider Call non-emergency contact if: you have any medication questions, your symptoms worsen and your rectal temperature is above 100.4 Follow-up/Referrals: Fannie Garcia PA-C [Primary Care Provider] - (Date & Time 04/28/2021 12:00 PM Provider [facility] G[facility] ) Diet: Heart Healthy Addtl Attending Provider Instructions: Take your medications as prescribed. Your inhalation medications has been adjusted as discussed during the bedside exam. Follow-up with your primary care physician within a week time. Establish a lung doctor and follow-up for long-term management of your asthma COPD overlap syndrome You will need a PFT done as an outpatient as discussed at bedside. Encourage strict tobacco cessation. If you have any questions or concerns regarding your medications, please call hospital 26/02. Pending Studies at Discharge: No Stand-Alone Forms: My [facility], Smoking Cessation Medications and DC Order Prescriptions: New doxycycline hyclate 100 mg Capsule 100 mg PO BID 2 Days Qty: 4 RF: 0 prednisone 20 mg Tablet 40 mg PO DAILY 5 Days Qty: 10 RF: 0 fluticasone propion-salmeterol [Advair Diskus] 500-50 mcg/dose blister with d evice 1 inh inhalation BID 30 Days Qty: 60 RF: 0 Spiriva Respimat 1.25 mcg/actuation mist 2 inh inhalation DAILY 30 Days Qty: 4 RF: 0 Continued Excedrin Migraine 250-250-65 mg Tablet 2 tab PO BID PRN (Reason: Migraine Headache) RF: 0 loratadine 10 mg Tablet 10 mg PO DAILY RF: 0 albuterol sulfate 2.5 mg /3 mL (0.083 %) Solution For Nebulization 2.5 mg INHALATION QID PRN (Reason: Shortness Of Breath Or Wheezing) Qty: 90 RF: 0 albuterol sulfate 90 mcg/actuation Hfa Aerosol Inhaler 2 puff INHALATION Q6H PRN (Reason: Shortness Of Breath Or Wheezing) Qty: 1 RF: 0 Discontinued ibuprofen 200 mg Tablet 600 mg PO Q6H PRN (Reason: Headache) RF: 0 fluticasone propion-salmeterol [Advair Diskus] 250-50 mcg/dose blister with device 1 inh INHALATION BID Qty: 1 RF: 0 lisinopril 5 mg tablet 5 mg PO DAILY RF: 0 Discharge Orders: Discharge Order (Routine); Ordered 04/21/21 Ordered By: Karuna Álvarez Admission Data Admit Date/Time: 04/16/21 21:38 Attending Provider: Karuna Álvarez Admit Provider: Barry Howell Primary Care Provider: Fannie Garcia Other Providers: Barry Howell ; Boone Archibald Other Interventions: Discharge Summary Assessment (RN) Last Done: 04/21/21 13:07
== END 2021-04-21 15:19 | disposition home or self-care (01) | DRG 202 ==
LOC: ED 17:18 → 2W 21:38

== ENCOUNTER 2024-08-30 03:40 | Inpatient (IN) ==
--- OUTSIDE RECORDS SUMMARY | 2024-08-30 03:44 | External Medical Summary | Summary of Care ---
Author Name Unknown Organization [facility] Address [address] [place] [address] Phone [phone] Care Team Providers Care Joiners Supervisor Name Role Phone Fannie Garcia PA-C Primary Care Provider [phone] Encounter Details Date Type Department Care Team (Late st Contact Info) Description 08/25/2024 Orders Only Outcomes Research Department [address] [place] [address] Lia Longoria CHRA [employer] Other*[id number] Allergies Active Allergy Reactions Criticality Noted Date Comments Acetaminophen 03/22/2016 (Rash? From gel caps.) Upset stomach, vomiting documented as of this encounter (statuses as of 08/25/2024) Medications Sulindac 200 MG Oral TabletIndications:T humb pain, unspecified laterality Take 1 Tablet by mouth in the morning and 1 Tablet before bedtime. With food. 60 Tablet 10/24/19 23 Active Neomycin-Polymyxin- Dexameth 3.5-32635-3.1 Ophthalmic Ointment (Maxitrol)Indicatio ns:Abrasion of ear canal, unspecified laterality, initial encounter Apply pea sized dollop to ears when itching 3.5 g 1 10/24/19 23 Active Levocetirizine Dihydrochloride 5 MG Oral TabletIndications:A llergic rhinitis, unspecified seasonality, unspecified trigger Take 1 Tablet by mouth every evening. 90 Tablet 3 10/24/19 23 Active Azelastine HCl 0.1 % Nasal Solution (Astelin)Indication s:Allergic rhinitis, unspecified seasonality, unspecified trigger Administer 1 [place] into nostril in the morning and 1 [place] before bedtime. 30 mL 12 10/24/19 23 Active Saline Nasal [place] 0.65 % Nasal Solution ([place]kab[place]la)Indications: Dry nose Administer 1 [place] into nostril as needed for Congestion. 30 mL 12 10/24/19 23 Active hydroCHLOROthiazide 25 MG Oral Tablet (Hydrodiuril)Indica tions:HTN, goal below 140/90 take 1 tablet by mouth every morning 30 Tablet 04/24/20 23 Active Fluticasone-Salmete rol 500-50 MCG/ACT Inhalation Aerosol Powder Breath Activated (Advair Diskus) Inhale 1 Puff by mouth in the morning and 1 Puff before bedtime. 180 Each 3 07/31/20 23 Active Albuterol Sulfate HFA 108 (90 Base) MCG/ACT Inhalation Aerosol SolutionIndications :Moderate persistent asthma without complication,COPD, moderate (HCC) inhale 2 puffs by mouth and INTO THE LUNGS four times a day if needed Strength: 108 (90 BASE) MCG/ACT 54 g 3 08/27/19 24 Active Tiotropium [place] Monohydrate 1.25 MCG/ACT Inhalation Aerosol Solution (Spiriva Respimat)Indication s:COPD, moderate (HCC) Inhale by mouth 2 Inhalation Dosing Unit daily . 12 g 3 08/27/19 24 Active Clobetasol Propionate 0.05 % External Cream (Temovate)Indicatio ns:Plaque psoriasis Apply topically to affected area 2 times a day. To affected area for up to two weeks. (Flare) 60 g 09/13/19 24 Active Triamcinolone Acetonide 0.1 % External Cream (Aristocort)Indicat ions:Plaque psoriasis Apply topically to affected area 3 times a day. To affected area elbows and hands when controlled 453 g 1 09/13/19 24 Active Albuterol Sulfate (2.5 MG/3ML) 0.083% Inhalation Nebulization Solution (Proventil)Indicati ons:Moderate persistent asthma without complication,COPD, moderate (HCC) inhale contents of 1 vial ( 3 milliliters ) in nebulizer by mouth and INTO THE LUNGS every 4 hours if needed for wheezing 360 mL 3 09/13/19 24 Active Diclofenac Sodium 1 % External Gel (Voltaren)Indicatio ns:Thumb pain, unspecified laterality apply 2 grams to affected area OF THUMBS four times a day NEEDED FOR PAIN to hands 400 g 09/13/19 24 Active Atorvastatin Calcium 20 MG Oral Tablet (Lipitor)Indication s:Hyperlipidemia, unspecified hyperlipidemia type Take 1 Tablet by mouth in the morning. 90 Tablet 12/05/19 24 Active documented as of this encounter (statuses as of 08/25/2024) Active Problems Problem Noted Date Diagnosed Date HTN, goal below 140/90 09/13/2023 Sleep disturbance 08/16/2016 Chronic bilateral low back pain without sciatica 04/11/2016 Moderate persistent asthma without complication 12/08/2015 Obesity, Class I, BMI 30.0-34.9 (see actual BMI) 09/27/2015 Overview (09/27/2015): bmi= 37.31 09/27/15 Tobacco use disorder 08/26/2015 COPD, moderate 10/04/2014 Asthma, moderate persistent Allergic rhinitis documented as of this encounter (statuses as of 08/25/2024) Resolved Problems Problem Noted Date Diagnosed Date Resolved Date Asthma with acute exacerbation 10/21/2021 10/21/2021 Acute respiratory failure, u nsp w hypoxia or hypercapnia 10/21/2021 10/21/2021 Viral URI with cough 04/11/2016 017 Pain of left upper arm 04/11/201606/20 Pain of right upper arm 12/08/201506/06 Lipoma of right upper extremity 12/08/2015 06/20/2017 RUQ abdominal pain 12/08/2015 7 Asthma exacerbation 08/26/2015 06/20/20 17 Pleurisy 10/29/2014 06/20/2017 ROUTINE MEDICAL EXAM 06/24/2001 017 EXT ASTHMA W-O STAT ASTH 06/2017 HISTORY OF TOBACCO USE 06/20 documented as of this encounter (statuses as of 08/25/2024) Immunizations Name Administration Dates Next Due TDAP (age 10 and older)(Boostrix) 06/20/2017 06/20/2027 documented as of this encounter Social History Tobacco Use Types Packs/Day Years Used Date Smoking Tobacco: Some Days Cigarettes 0.5 14 Smokeless Tobacco: Never Comments:PT states she has o nly smoked 8 cigarettes in 3 weeks Alcohol Use Standard Drinks/Week Comments Not Currently 0 (1 standard drink = 0.6 oz pur e alcohol) no drinks for 2 years PHQ-2 Answer Date Recorded PHQ-2 Score -1 06/10/2018 Comments No Sex and Gender Information Value Date Recorded Sex Assigned at Not on file Legal Sex Female 5:43 AM EST Gender Identity Not on file Sexual Orientation Not on file documented as of this encounter Plan of Treatment Scheduled Orders Name Type Priority Associated Diagnoses Orde r Schedule MYCODE SUBSEQUENT ADULT Lab Routine [employer] Other*[id number] Every 6 Months for 2 Occurrences starting 08/25/2024 until 09/14/2025 Health Maintenance Due Date Last Done Comments HIV Screening 1989 Albumin/Creatinine Ratio 1992 Alpha-1 Antitrypsin 1992 Hepatitis C Screening 1992 Hepatitis B Vaccine (1 of 3 - 19+ 3-dose series) 1993 Pneumococcal Vaccine: 50+ Years (1 of 2 - PCV) 1993 Pneumococcal Vaccine: Pediatrics (0 to 5 Years) and At-Risk Patients (6 to 18 Years and 19+ Years) (1 of 2 - PCV) 1993 HPV/Co-Test 2004 DISCUSS TOBACCO CESSATION (REFER TO SMARTSET #3291) 09/27/2016 09/27/2015 Cologuard 2019 Colonoscopy 2019 Colorectal Cancer Screening 2019 Fecal Occult Blood Test 2019 Sigmoidoscopy 2019 Depression Screening 06/10/2019 06/10/2018, 12/19/19 18 Cervical Cancer Screening 03/21/2021 Pap Smear 03/21/2021 03/21/2018 GFR 10/21/2022 10/21/2021, 08/0 10/2017, 10/02/2017, Additional history exists Mammogram 11/03/2022 11/03/2021, 08/07, 04/17/2016, Additional history exists COVID-19 Vaccine ( season) 2024 Influenza Vaccine (FLU shot) (#1) 2024 Zoster Vaccines (1 of 2) 2024 O2 ASSESSMENT COMPLETED IN PAST YEAR FOR COPD 09/13/2024 09/13/2023 Diabetes Screening 10/21/2024 10/21/2021, 0 09/09/2020, 03/08/2018, Additional history exists Lipid Panel 10/21/2026 10/21/2021, 09/09/2020 DTap/Tdap Vaccines (2 - Td or Tdap) 06/20/2027 06/20/2017, 08/06/1998, 08/06/1998 HPV (Gardasil) Vaccine Aged Out No lo nger eligible based on patient's age to complete this topic MENINGOCOCCAL (MENACTRA/MENVEO) Aged Out No longer eligible based on patient's age to complete this topic documented as of this encounter Medical Devices Not on filedocumented as of this encounter Visit Diagnoses Diagnosis [employer] Other*[id number] documented in this encounter Care Teams Joiners Supervisor Relationship Specialty Start Date End Date Fannie Garcia PA-C PCP - General Physician Test Developer 10/20/22 documented as of this encounter
[2024-08-30] MEDS: ALBUT/IPRATROP 3MG/0.5MG NEB 3 ML VIAL NEB ONE (05:16)
--- NOTE | 2024-08-30 05:16 | Emergency Department Note ---
Impression & Plan COPD exacerbation, Hypoxia admit to the [facility] ED Provider Note NAME: LUCIAN BRODY AGE: 49 SEX: Female INFORMANT: Patient ED PROVIDER(S): Jamilah Ruiz DO CHIEF COMPLAINT: shortness of breath PLAN: Disposition: admit to the [facility] MEDICAL DECISION MAKING: this is a 49-year-old female patient who presents to the emergency department with worsening shortness of breath, especially on exertion. The patient has a history of COPD. She ran out of her Spiriva and rescue inhaler Approximately 1.5 months ago because of insurance. She has been trying to use her nebulizers with no relief of her symptoms. Chest x-ray was unremarkable. patient was hypoxic and had to be placed on supplemental oxygen. Laboratory studies revealed no leukocytosis or anemia. Glucose was 128. Troponin was negative. Upper respiratory bio fire testing was negative. Patient had received a DuoNeb treatment from EMS along with IV Solu-Medrol. Upon arrival in the emergency department, the patient remained significantly tight in the lungs and was put on an hour-long DuoNeb treatment. She continued to have an oxygen requirement. [facility] care. Care/management discussed with: fiscal manager and [facility] Triage Nursing notes: reviewed and agree with them. Vital Signs: reviewed and remarkable for tachycardia and hypoxia Chronic Medical/Social Conditions affecting care: COPD; the patient quit smoking 3 months ago Differential Diagnosis: pneumonia, bronchitis, URI, COPD exacerbation, medication noncompliance Diagnostics, independently interpreted by me: ECG: sinus tachycardia at a rate of [address] segment elevation or signs of ischemia. There is no ectopy. Cardiac Monitoring: Sinus tachycardia at 105. Imaging studies: Portable chest x-ray: no acute pulmonary infiltrates or consolidation. HPI: 49 year old Female arrives for evaluation of Shortness of breath, cough and chest pain. Patient states that she becomes exquisitely short of breath with even slight ambulation. She ran out of her Spiriva and rescue inhaler approximately 1-1/2 months ago. This was because of Insurance reasons. PAST MEDICAL HISTORY: See Below, PAST SURGICAL HISTORY: See Below, SOCIAL HISTORY: See Below, HOME MEDICATIONS: see list ALLERGIES: see list Physical exam: HEENT: Head - normocephalic and atraumatic Pupils are equal, round, and reactive to light. Extraocular eye muscles are intact, and sclera are anicteric. Nose - moist nasal mucosa without discharge. Mouth - moist buccal mucosa. Oropharynx is nonerythematous and there is no tonsillar exudate or edema noted. Neck: Supple; no JVD, nuchal rigidity, cervical lymphadenopathy Heart: Tachycardic rate and regular rhythm. There is a normal S1 and S2 with no murmurs, clicks, or gallops appreciated. Lungs: diffuse inspiratory and expiratory wheezes with rhonchi at the bases Abdomen: Soft, completely nontender, nondistended, with good bowel sounds. There are no palpable pulsatile masses or hepatosplenomegaly. There is no guarding, rigidity, or rebound noted. Extremities: No evidence of cyanosis, clubbing, or edema. There are easily palpable peripheral pulses. Skin: warm and dry with good turgor and no rashes. emergency department treatment: lunchroom monitor, supplemental oxygen, hour-long DuoNeb treatment Emergency Department course: The patient was evaluated in room C6. A complete history and physical was performed. An order was placed for continuous cardiac monitoring. The patient was in a sinus tachycardia at a rate of 105. A twelve- lead EKG was obtained as described above. Patient was treated with an hour-long DuoNeb treatment. She remained on supplemental oxygen because without it she was hypoxic. I discussed the case with the [facility]ist and they will evaluate for further inpatient care Past Med/Surg History Problem List (Updated 08/30/24 @ 08:14 by Jamilah Ruiz DO) Hypoxia (Acute) COPD exacerbation (Acute) Recurrent non-productive cough Tobacco abuse Acute asthma exacerbation Acute hypoxemic respiratory failure Syncope (Acute) Elevated troponin (Acute) Acute respiratory failure with hypoxia (Acute) Asthma with COPD with exacerbation COPD (chronic obstructive pulmonary disease) (Acute) Asthma Medical History (Updated 08/30/24 @ 08:14 by Jamilah Ruiz DO) Arthritis Surgical History Tubal ligation status Previous section S/P cholecystectomy Family History Father Heart disease Hypertension Social History Smoking Status: Former smoker Tobacco Type: Cigarettes Cigarettes Per Day: 20; Second Hand Exposure: No; Do You Dip or Chew Tobacco: No; Hx Alcohol Use: Yes Alcohol type: beer Hx Substance Use: No Preferred Language: Gabonese Communication Ability: Effective Skiver Uppers Or Linings Required: No Beliefs That Will Affect Care: None Current Living Situation: Significant Other Current Living Situation Comment: friend Feels Safe at Home: Yes Assistive Devices: None Allergies Allergies Allergy/AdvReac Type Severity Reaction Status Date / Time acetaminophen [From Tylenol] Allergy Mild Gastrointestinal Unverified 08/30/24 04:29 Upset Home Meds Home Medications Medication Instructions Recorded Confirmed atorvastatin 20 mg tablet 20 mg PO 1XD 08/30/24 08/30/24 diclofenac sodium 1 % topical gel 2 g topical 4XD PRN Pain 08/30/24 08/30/24 fluticasone 500 mcg-salmeterol 50 1 inh inhalation 2XD 08/30/24 08/30/24 mcg/dose blistr powdr for inhalation hydrochlorothiazide 25 mg PO DAILY 08/30/24 08/30/24 tiotropium bromide 1.25 2 inh inhalation 1XD 08/30/24 08/30/24 mcg/actuation mist for inhalation (Spiriva Respimat) Previous Rx's Medication Instructions Recorded albuterol sulfate 2.5 mg/3 mL 2.5 mg (3 mL) inhalation QID PRN 04/21/21 (0.083 %) solution for nebulization Shortness Of Breath Or Wheezing #90 mL albuterol sulfate 90 mcg/actuation 2 puff inhalation Q6H PRN 04/21/21 aerosol inhaler Shortness Of Breath Or Wheezing #1 inhaler Results & Data (ED) Vital Signs Vital Signs - 24 hr 08/30/24 03:32 08/30/24 03:32 08/30/24 03:32 Temperature 36.6 C Temperature Source Oral Pulse Rate 104 H Pulse Rate [Apical] Pulse Rhythm Regular Pulse Rhythm [Apical] Pulse Strength Normal Pulse Strength [Apical] Respiratory Rate 18 Respiratory Effort / Characteristics Non-Labored Spontaneous Non-Labored Spontaneous Respiratory Depth Normal Normal Respiratory Pattern Regular Regular Blood Pressure 164/117 H Blood Pressure [Right Arm] Blood Pressure Mean 132 Blood Pressure Mean [Right Arm] Blood Pressure Position Lying Blood Pressure Position [Right Arm] Pulse Oximetry 89 L 89 L Oxygen Delivery Method Room Air Nasal Cannula Room Air Room Air Nasal Cannula Oxygen Flow Rate 2 0 Sepsis Recent Fever Within 48 Hours No Sepsis New/Unexplained Change in Mental Status No Sepsis Action Taken by Nursing No Action Required Oxygen Flow Rate - Titration 2 Pulse Oximetry Post Tiitration 91 08/30/24 03:45 08/30/24 05:00 08/30/24 05:07 Temperature Temperature Source Pulse Rate 112 H 105 H Pulse Rate [Apical] 102 H Pulse Rhythm Regular Pulse Rhythm [Apical] Regular Pulse Strength Pulse Strength [Apical] Normal Respiratory Rate 20 22 Respiratory Effort / Characteristics Non-Labored Spontaneous Respiratory Depth Normal Respiratory Pattern Regular Blood Pressure Blood Pressure [Right Arm] 173/101 H Blood Pressure Mean Blood Pressure Mean [Right Arm] 125 Blood Pressure Position Blood Pressure Position [Right Arm] Lying Pulse Oximetry 91 91 Oxygen Delivery Method Nasal Cannula Nasal Cannula Oxygen Flow Rate 2 2 Sepsis Recent Fever Within 48 Hours Sepsis New/Unexplained Change in Mental Status Sepsis Action Taken by Nursing Oxygen Flow Rate - Titration Pulse Oximetry Post Tiitration 08/30/24 06:00 08/30/24 06:22 08/30/24 06:42 Temperature Temperature Source Pulse Rate 111 H 102 H Pulse Rate [Apical] 107 H Pulse Rhythm Pulse Rhythm [Apical] Regular Pulse Strength Pulse Strength [Apical] Normal Respiratory Rate 20 Respiratory Effort / Characteristics Non-Labored Spontaneous Respiratory Depth Normal Respiratory Pattern Regular Blood Pressure 134/99 167/97 H Blood Pressure [Right Arm] 134/99 Blood Pressure Mean Blood Pressure Mean [Right Arm] 110 Blood Pressure Position Blood Pressure Position [Right Arm] Lying Pulse Oximetry 97 Oxygen Delivery Method Nebulizer Oxygen Flow Rate 6 Sepsis Recent Fever Within 48 Hours Sepsis New/Unexplained Change in Mental Status Sepsis Action Taken by Nursing Oxygen Flow Rate - Titration Pulse Oximetry Post Tiitration 08/30/24 07:41 08/30/24 07:56 Temperature Temperature Source Pulse Rate Pulse Rate [Apical] 110 H Pulse Rhythm Pulse Rhythm [Apical] Pulse Strength Pulse Strength [Apical] Respiratory Rate 15 Respiratory Effort / Characteristics Respiratory Depth Respiratory Pattern Blood Pressure Blood Pressure [Right Arm] 164/94 H Blood Pressure Mean Blood Pressure Mean [Right Arm] 117 Blood Pressure Position Blood Pressure Position [Right Arm] Pulse Oximetry 92 Oxygen Delivery Method Nasal Cannula Nasal Cannula Oxygen Flow Rate 2 2 Sepsis Recent Fever Within 48 Hours Sepsis New/Unexplained Change in Mental Status Sepsis Action Taken by Nursing Oxygen Flow Rate - Titration Pulse Oximetry Post Tiitration Laboratory Data 08/30/24 04:05 08/30/24 04:05 Lab Results 08/30/24 08/30/24 08/30/24 Range/Units 04:00 04:05 06:01 WBC 8.67 (4.8-10.8) K/ul RBC 4.72 (4.20-5.40) M/uL Hgb 14.3 (12.0-16.0) g/dl Hct 42.6 (37.0-47.0) % MCV 90.3 (80.0-100.0) fL MCH 30.3 (25.0-34.0) pg MCHC 33.6 (32.0-36.0) g/dL RDW Std Deviation 46.2 (36.4-46.3) fL RDW Coeff of Ahmet 13.8 (11.5-14.5) % Plt Count 361 (130-400) K/uL MPV 10.2 (9.4-12.4) fL Immature Gran % (Auto) 0.2 % Neut % (Auto) 58.4 % Lymph % (Auto) 28.8 % [place] % (Auto) 7.5 % Eos % (Auto) 4.5 % Baso % (Auto) 0.6 % Neut # (Auto) 5.06 (1.40-6.50) K/uL Lymph # (Auto) 2.50 (1.20-3.40) K/uL [place] # (Auto) 0.65 H (0.11-0.59) K/uL Eos # (Auto) 0.39 (0.00-0.50) K/uL Baso # (Auto) 0.05 (0.00-0.20) K/uL Immature Gran # (Auto) 0.02 (0.01-0.20) K/uL VBG pH 7.40 (7.36-7.41) VBG pCO2 47 (38-50) mmHg VBG pO2 73 mmHg VBG HCO3 29 mmol/L VBG O2 Saturation 94.6 % VBG Base Excess 3.5 mEq/L Sodium 139 (136-145) mmol/L Potassium 3.8 (3.5-5.1) mmol/L Chloride 103 (98-107) mmol/L Carbon Dioxide 29 (21-32) mmol/L Anion Gap 7 (3-11) BUN 11 (6-23) mg/dl Creatinine 0.73 (0.6-1.2) mg/dl Est Cr Clr Drug Dosing 99.7 ml/min eGFR 100.13 BUN/Creatinine Ratio 15.1 (10-20) Glucose 128 H (70-99(Fasting)) mg/dl Estimat Average Glucose 134 mg/dl Hemoglobin A1c 6.3 H (4.5-5.6) % Calcium 9.3 (8.6-10.3) mg/dl Magnesium 2.1 (1.7-2.4) mg/dl Total Bilirubin 0.4 (0.2-1.0) mg/dl AST 21 (13-39) U/L ALT 26 (7-52) U/L Alkaline Phosphatase 37 (34-104) U/L Troponin I High Sens 4.0 (0-14) pg/ml Total Protein 7.2 (6.0-8.3) gm/dl Albumin 4.5 (3.4-5.0) gm/dl Globulin 2.7 (2.5-4.0) gm/dl Albumin/Globulin Ratio 1.7 (0.9-2) Lipase 10 L (11-82) U/L Adenovirus (PCR) Not Detected (NotDetected) B. pertussis DNA (PCR) Not Detected (NotDetected) B.parapertussis DNA PCR Not Detected (NotDetected) C. pneumoniae DNA (PCR) Not Detected (NotDetected) Coronavirus OC43 (PCR) Not Detected (NotDetected) Coronavirus HKU1 (PCR) Not Detected (NotDetected) Coronavirus 229E (PCR) Not Detected (NotDetected) SARS-CoV-2 (PCR) Not Detected (NotDetected) Coronavirus NL63 (PCR) Not Detected (NotDetected) Human Metapneumovir PCR Not Detected (NotDetected) Influenza Type A (PCR) Not Detected (NotDetected) Influenza Type B (PCR) Not Detected (NotDetected) M. pneumoniae (PCR) Not Detected (NotDetected) Parainfluenza 1 (PCR) Not Detected (NotDetected) Parainfluenza 2 (PCR) Not Detected (NotDetected) Parainfluenza 3 (PCR) Not Detected (NotDetected) Parainfluenza 4 (PCR) Not Detected (NotDetected) RSV (PCR) Not Detected (NotDetected) Entero/Rhino (PCR) Not Detected (NotDetected) Administered Medications Potassium Chloride/Sodium Chloride (Normal Saline W/20 Meq Kcl) 20 meq in 1,000 mls @ 60 mls/hr IV .[id number] ONE Stop: 08/30/24 23:04 Last Admin: 08/30/24 06:45 Dose: 60 mls/hr Documented By: URMILA Ipratropium [place] (Ipratropium [place] Neb Soln 0.02% 0.5mg/2.5ml Vial) [facility] Stop: 09/29/24 06:59 Last Admin: 08/30/24 06:45 Dose: 0.5 mg Documented By: URMILA Levalbuterol HCl (Levalbuterol 1.25 Mg/3 Ml Neb) 1.25 mg NEB [facility] Stop: 09/29/24 06:59 Last Admin: 08/30/24 06:45 Dose: 1.25 mg Documented By: URMILA Discontinued Medications Albuterol (Albut/Ipratrop 3mg/0.5mg Neb 3 Ml Vial) 12 ml NEB ONE ONE; Protocol Stop: 08/30/24 05:08 Last Admin: 08/30/24 05:16 Dose: 12 ml Documented By: URMILA Guaifenesin (Guaifenesin 600 Mg Tabcr) 600 mg PO NOW STA Stop: 08/30/24 06:26 Last Admin: 08/30/24 06:44 Dose: 600 mg Documented By: URMILA Ioversol (Optiray 320 125ml) 118 ml IV ONCE ONE Stop: 08/30/24 06:41 Last Admin: 08/30/24 06:40 Dose: 118 ml Documented By: MANUELA Losartan Potassium (Losartan Potassium 25 Mg Tab) 25 mg PO NOW STA Stop: 08/30/24 07:06 Last Admin: 08/30/24 07:43 Dose: 25 mg Documented By: FRED Metoprolol Tartrate (Metoprolol Tartrate 1 Mg/Ml Vial) 2.5 mg IV NOW STA Stop: 08/30/24 05:47 Last Admin: 08/30/24 06:22 Dose: 2.5 mg Documented By: URMILA Imaging Data Radiologist's Impression: Chest X-Ray 08/30/24 05:07 EXAM: XR chest 1V portable CLINICAL HISTORY: CHEST PAIN SHORTNESS OF BREATH. TECHNIQUE: X-ray images of the chest were obtained in AP projection. COMPARISON: 04/16/2021. FINDINGS: Pulmonary Parenchyma: No evidence of consolidation, collapse, or focal opacities. No pulmonary nodules identified. No evidence of pleural effusion or pleural thickening. Heart and Mediastinum: Heart size and shape are normal. No mediastinal widening or masses. No hilar or mediastinal lymphadenopathy. Bony Thorax: Bony thorax appears intact without fractures or deformities. 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 IMPRESSION: 1. No acute cardiopulmonary abnormalities identified. 2. Still noted double contour of the right diaphragmatic copula. 3. Unchanged study. Electronically signed by Marc Rose 08-30-2024 06:10 AM Chest CTA 08/30/24 06:17 EXAM: CT angio chest PE protocol CLINICAL HISTORY: Chest pain, asthma, cough, sob, rule out PE. TECHNIQUE: CT angiography of the chest was performed with and without intravenous contrast with the following protocol: axial images with, reconstructed coronal and sagittal images. Non-contrast images were initially acquired, followed by contrast-enhanced images in arterial and venous phases. 118 cc's Optiray Intravenous contrast was administered using automated injection techniques. Bolus tracking was employed to optimize arterial phase imaging. One of these 3D techniques was utilized: Maximum Intensity Pixel (MIP), 3D Reconstructed Images, Volume Rendered Images, Surface Shaded Rendering. One of the following dose reduction techniques was utilized for this exam: Automated exposure control, adjustment of the mA and/or kV according to patient size, and use of iterative reconstruction. CTDI: 42.65 mGy. DLP: 855.38 mGy.cm. COMPARISON: 04/16/2021 CT. FINDINGS: Aorta and Great Vessels: Ascending Aorta: Normal in caliber, no aneurysm, dissection, or significant atherosclerosis. Aortic Arch: Normal in caliber, no aneurysm, dissection, or significant atherosclerosis. Aberrant right subclavian artery. Descending Aorta: Normal in caliber, no aneurysm, dissection, or significant atherosclerosis. Pulmonary Arteries: The main pulmonary artery and its branches are patent. No evidence of pulmonary embolism or significant stenosis. Heart: Cardiac Chambers: Normal in size. No evidence of cardiomegaly. Pericardium: No pericardial effusion or thickening. Lungs and Pleura: Lungs are clear without evidence of consolidation, collapse, or focal lesions. No pleural effusion or pleural thickening. Mediastinum: No mediastinal mass or abnormal lymphadenopathy. Normal appearance of the trachea and central bronchi. Chest Wall: No mass lesions or abnormalities in the chest wall. Vascular Structures: Superior Vena Cava: Patent without evidence of stenosis or thrombus. Inferior Vena Cava: Patent without evidence of stenosis or thrombus. Bones and Soft Tissues: No fractures, lytic, or blastic lesions of the visualized bony structures. Soft tissues are unremarkable. IMPRESSION: No evidence of acute pulmonary thromboembolism. Unchanged study. Electronically signed by Marc Rose 08-30-2024 07:26 AM Discharge Plan Visit Data Chief Complaint: Shortness of Breath/Dyspnea Stated Complaint: SOB ED Provider: Jamilah Ruiz Discharge Problem: COPD exacerbation, Hypoxia Patient Disposition: Admitted As Inpatient Discharge Instructions Interventions: ED Discharge Assessment Last Done: 08/30/24 07:56 Forms Stand Alone Forms: [facility] [employer] Prescriptions Prescriptions: No Action albuterol sulfate 2.5 mg /3 mL (0.083 %) Solution For Nebulization 2.5 mg INHALATION QID PRN (Reason: Shortness Of Breath Or Wheezing) Qty: 90 0RF albuterol sulfate 90 mcg/actuation Hfa Aerosol Inhaler 2 puff INHALATION Q6H PRN (Reason: Shortness Of Breath Or Wheezing) Qty: 1 0RF atorvastatin 20 mg tablet 20 mg PO 1XD fluticasone propion-salmeterol 500-50 mcg/dose blister with device 1 inh INHALATION 2XD diclofenac sodium 1 % gel 2 g TOPICAL 4XD PRN (Reason: Pain) Spiriva Respimat 1.25 mcg/actuation mist 2 inh INHALATION 1XD hydrochlorothiazide 25 mg PO DAILY Referrals Referrals: Fannie Garcia PA-C [Primary Care Provider] -
[2024-08-30 05:18] LABS: Basophils # (auto) 0.05 K/uL (0.00-0.20); Basophils % (auto) 0.6 %; Eosinophils # (auto) 0.39 K/uL (0.00-0.50); Eosinophils % (auto) 4.5 %; Hematocrit (blood only) 42.6 % (37.0-47.0); Hemoglobin 14.3 g/dl (12.0-16.0); Immature Granulocytes # (auto) 0.02 K/uL (0.01-0.20); Immature Granulocytes % (auto) 0.2 %; Lymphocytes % (auto) 28.8 %; Mean Corpuscular Hemoglobin 30.3 pg (25.0-34.0); Mean Corpuscular Hgb Conc 33.6 g/dL (32.0-36.0); Mean Corpuscular Volume 90.3 fL (80.0-100.0); Mean Platelet Volume 10.2 fL (9.4-12.4); Monocytes # (auto) 0.65 K/uL (0.11-0.59); Monocytes % (auto) 7.5 %; Neutrophils # (auto) 5.06 K/uL (1.40-6.50); Neutrophils % (auto) 58.4 %; Platelet Count 361 K/uL (130-400); RDW Coefficient of Variation 13.8 % (11.5-14.5); RDW Standard Deviation 46.2 fL (36.4-46.3); Red Blood Count 4.72 M/uL (4.20-5.40); White Blood Count 8.67 K/ul (4.8-10.8)
[2024-08-30 05:26] LABS: Albumin Globulin Ratio 1.7 (0.9-2); Albumin Level 4.5 gm/dl (3.4-5.0); BUN Creatinine Ratio 15.1 (10-20); Bilirubin,Total 0.4 mg/dl (0.2-1.0); Calcium 9.3 mg/dl (8.6-10.3); Creatinine Clr Calc Pharmacy 99.7 ml/min; Globulin 2.7 gm/dl (2.5-4.0); Potassium 3.8 mmol/L (3.5-5.1); Total Protein 7.2 gm/dl (6.0-8.3)
--- NOTE | 2024-08-30 06:04 | History & Physical Report ---
Date of Service August 30, 2024 Assessment & Plan (1) Acute hypoxemic respiratory failure: Plan: Acute hypoxemic respiratory failure Secondary to COPD exacerbation Noncompliance with pulmonary regimen since last month due to financial constraints. No sepsis for now Rule out PE given pleuritic chest pain complaints Hypertension, elevated secondary to discomfort, missed home diuretic Rx Hyperglycemia rule out DM Past tobacco abuse Admit to medical telemetry Supplemental O2 Baseline vBG nebs RTC, prednisone course No indication for antibiotic Rx for now. CT chest PE study Pulmonary consult if without improvement Initiate losartan Check hemoglobin A1c Case management RE assistance regarding home meds procurement prior to discharge DVT prophylaxis. Lovenox subcu Full code Text document was generated using [employer] voice recognition software. It may contain grammatical or spelling errors. Kindly contact undersigned for clarification of any documentation item in question. History of Present Illness Chief Complaint: Worsening SOB Primary Care Provider: Fannie Garcia PA-C History obtained from patient and records. Medical history significant for asthma/COPD, hypertension, chronic back pain, past tobacco abuse. Last confinement 2020 for asthma/COPD exacerbation. Patient ran out of home medications/inhalers last month due to insurance issues. Progressive shortness of breath, dry cough symptoms with pleuritic chest pain since yesterday. Not sure about sick contacts. No aspiration. No fluid retention. Symptoms unresponsive to neb treatment at home. Patient received Solu-Medrol and neb treatment en route to ER. O2 sats 80s upon arrival at the ER. 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, unemployed Allergies Allergy/AdvReac Type Severity Reaction Status Date / Time acetaminophen [From Tylenol] Allergy Mild Gastrointestinal Unverified 08/30/24 04:29 Upset Home Medications Medication Instructions Recorded Confirmed Type albuterol sulfate 2.5 mg/3 mL 2.5 mg (3 mL) inhalation QID PRN 04/21/21 08/30/24 Rx (0.083 %) solution for nebulization Shortness Of Breath Or Wheezing #90 mL albuterol sulfate 90 mcg/actuation 2 puff inhalation Q6H PRN 04/21/21 08/30/24 Rx aerosol inhaler Shortness Of Breath Or Wheezing #1 inhaler atorvastatin 20 mg tablet 20 mg PO 1XD 08/30/24 08/30/24 History diclofenac sodium 1 % topical gel 2 g topical 4XD PRN Pain 08/30/24 08/30/24 History fluticasone 500 mcg-salmeterol 50 1 inh inhalation 2XD 08/30/24 08/30/24 History mcg/dose blistr powdr for inhalation hydrochlorothiazide 25 mg PO DAILY 08/30/24 08/30/24 History tiotropium bromide 1.25 2 inh inhalation 1XD 08/30/24 08/30/24 History mcg/actuation mist for inhalation (Spiriva Respimat) Past Med/Surg History Problem List (Updated 08/30/24 @ 05:16 by Jamilah Ruiz DO) COPD exacerbation (Acute) Recurrent non-productive cough Tobacco abuse Acute asthma exacerbation Acute hypoxemic respiratory failure Syncope (Acute) Elevated troponin (Acute) Acute respiratory failure with hypoxia (Acute) Asthma with COPD with exacerbation COPD (chronic obstructive pulmonary disease) (Acute) Asthma Medical History (Updated 08/30/24 @ 05:16 by Jamilah Ruiz DO) Arthritis Surgical History Tubal ligation status Previous section S/P cholecystectomy Family History Father Heart disease Hypertension Social History Smoking Status: Former smoker Tobacco Type: Cigarettes Cigarettes Per Day: 20; Second Hand Exposure: No; Do You Dip or Chew Tobacco: No; Hx Alcohol Use: Yes Alcohol type: beer Hx Substance Use: No Preferred Language: Haitian Communication Ability: Effective Pbx Teacher Required: No Beliefs That Will Affect Care: None Current Living Situation: Significant Other Current Living Situation Comment: friend Feels Safe at Home: Yes Assistive Devices: None Review of Systems Review of Systems: As per HPI, all other systems reviewed and negative Physical Exam Physical Exam: GENERAL: Comfortable, obese, pleasant, no respiratory distress SKIN: Normal color, warm HEENT: [place] palpebral conjunctivae, no ptosis, moist buccal mucosa, nasal cannula in place NECK : Supple, short neck, no tenderness CHEST : Decreased breath sounds, expiratory wheezes, no tenderness HEART : Tachycardic, no obvious murmurs ABDOMEN: Some distention, nontender EXTREMITIES : No LE swelling/tenderness, no other conspicuous deformities noted NEUROLOGIC : Coherent, no facial asymmetry, no other gross focality Results & Data Results & Data Vital Signs (Past 12 Hours) Vital Signs Temp Pulse Pulse Resp BP BP Pulse Ox 08/30/24 05:07 105 H 22 91 08/30/24 05:00 102 H 20 173/101 H 91 08/30/24 03:45 112 H 08/30/24 03:32 89 L 08/30/24 03:32 36.6 C 104 H 18 164/117 H 89 L 08/30/24 03:32 O2 Del Method O2 Flow Rate 08/30/24 05:07 Nasal Cannula 2 08/30/24 05:00 Nasal Cannula 2 08/30/24 03:45 08/30/24 03:32 Room Air, Nasal Cannula 0 08/30/24 03:32 Room Air 08/30/24 03:32 Room Air, Nasal Cannula 2 Laboratory Results Laboratory Results WBC 8.67 K/ul (4.8-10.8) 08/30/24 04:05 RBC 4.72 M/uL (4.20-5.40) 08/30/24 04:05 Hgb 14.3 g/dl (12.0-16.0) 08/30/24 04:05 Hct 42.6 % (37.0-47.0) 08/30/24 04:05 MCV 90.3 fL (80.0-100.0) 08/30/24 04:05 MCH 30.3 pg (25.0-34.0) 08/30/24 04:05 MCHC 33.6 g/dL (32.0-36.0) 08/30/24 04:05 RDW Std Deviation 46.2 fL (36.4-46.3) 08/30/24 04:05 RDW Coeff of Ahmet 13.8 % (11.5-14.5) 08/30/24 04:05 Plt Count 361 K/uL (130-400) 08/30/24 04:05 MPV 10.2 fL (9.4-12.4) 08/30/24 04:05 Immature Gran % (Auto) 0.2 % 08/30/24 04:05 Neut % (Auto) 58.4 % 08/30/24 04:05 Lymph % (Auto) 28.8 % 08/30/24 04:05 Grady % (Auto) 7.5 % 08/30/24 04:05 Eos % (Auto) 4.5 % 08/30/24 04:05 Baso % (Auto) 0.6 % 08/30/24 04:05 Neut # (Auto) 5.06 K/uL (1.40-6.50) 08/30/24 04:05 Lymph # (Auto) 2.50 K/uL (1.20-3.40) 08/30/24 04:05 Grady # (Auto) 0.65 K/uL (0.11-0.59) H 08/30/24 04:05 Eos # (Auto) 0.39 K/uL (0.00-0.50) 08/30/24 04:05 Baso # (Auto) 0.05 K/uL (0.00-0.20) 08/30/24 04:05 Immature Gran # (Auto) 0.02 K/uL (0.01-0.20) 08/30/24 04:05 Sodium 139 mmol/L (136-145) 08/30/24 04:05 Potassium 3.8 mmol/L (3.5-5.1) 08/30/24 04:05 Chloride 103 mmol/L (98-107) 08/30/24 04:05 Carbon Dioxide 29 mmol/L (21-32) 08/30/24 04:05 Anion Gap 7 (3-11) 08/30/24 04:05 BUN 11 mg/dl (6-23) 08/30/24 04:05 Creatinine 0.73 mg/dl (0.6-1.2) 08/30/24 04:05 Est Cr Clr Drug Dosing 99.7 ml/min 08/30/24 04:05 eGFR 100.13 08/30/24 04:05 BUN/Creatinine Ratio 15.1 (10-20) 08/30/24 04:05 Glucose 128 mg/dl (70-99(Fasting)) H 08/30/24 04:05 Calcium 9.3 mg/dl (8.6-10.3) 08/30/24 04:05 Total Bilirubin 0.4 mg/dl (0.2-1.0) 08/30/24 04:05 AST 21 U/L (13-39) 08/30/24 04:05 ALT 26 U/L (7-52) 08/30/24 04:05 Alkaline Phosphatase 37 U/L (34-104) 08/30/24 04:05 Troponin I High Sens 4.0 pg/ml (0-14) 08/30/24 04:05 Total Protein 7.2 gm/dl (6.0-8.3) 08/30/24 04:05 Albumin 4.5 gm/dl (3.4-5.0) 08/30/24 04:05 Globulin 2.7 gm/dl (2.5-4.0) 08/30/24 04:05 Albumin/Globulin Ratio 1.7 (0.9-2) 08/30/24 04:05 Lipase 10 U/L (11-82) L 08/30/24 04:05 Diagnostic Findings Chest x-ray as per my interpretation atelectasis EKG as per my interpretation : Rate 110, sinus tachycardia, normal axis, T wave flattening septal leads
--- NOTE | 2024-08-30 06:11 | XRay Report ---
EXAM: XR chest 1V portable CLINICAL HISTORY: CHEST PAIN SHORTNESS OF BREATH. TECHNIQUE: X-ray images of the chest were obtained in AP projection. COMPARISON: 04/16/2021. FINDINGS: Pulmonary Parenchyma: No evidence of consolidation, collapse, or focal opacities. No pulmonary nodules identified. No evidence of pleural effusion or pleural thickening. Heart and Mediastinum: Heart size and shape are normal. No mediastinal widening or masses. No hilar or mediastinal lymphadenopathy. Bony Thorax: Bony thorax appears intact without fractures or deformities. 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 IMPRESSION: 1. No acute cardiopulmonary abnormalities identified. 2. Still noted double contour of the right diaphragmatic copula. 3. Unchanged study. Electronically signed by Marc Rose 08-30-2024 06:10 AM
[2024-08-30 06:16] LABS: Base Excess VBG 3.5 mEq/L; HCO3 VBG 29 mmol/L; Oxygen Saturation VBG 94.6 %; PCO2 VBG 47 mmHg (38-50); PO2 VBG 73 mmHg
[2024-08-30 06:18] LABS: Magnesium 2.1 mg/dl (1.7-2.4)
[2024-08-30] MEDS: METOPROLOL TARTRATE 1 MG/ML VIAL IV STA (06:22)
[2024-08-30] MEDS ORDERED: PROMETHAZINE 6.25 MG/50.25 ML BAG IV PRN (06:24)
[2024-08-30] MEDS ORDERED: traMADol HCL 50 MG TABLET PO PRN (06:24)
[2024-08-30] MEDS ORDERED: DICLOFENAC SOD 1% GEL 100 GM TUBE EXT PRN (06:26)
[2024-08-30] MEDS ORDERED: ACETAMINOPHEN 1,000 MG/100 ML VIAL IV PRN (06:26)
[2024-08-30] MEDS: OPTIRAY 320 125ml IV ONE (06:40)
[2024-08-30 06:43] LABS: Adenovirus PCR Not Detected (NotDetected); Bordetella parapertussis PCR Not Detected (NotDetected); Bordetella pertussis PCR Not Detected (NotDetected); Chlamydia pneumoniae PCR Not Detected (NotDetected); Coronavirus 229E PCR Not Detected (NotDetected); Coronavirus CoV-2 (COVID19)PCR Not Detected (NotDetected); Coronavirus HKU1 PCR Not Detected (NotDetected); Coronavirus NL63 PCR Not Detected (NotDetected); Coronavirus OC43PCR Not Detected (NotDetected); Human Metapneumovirus PCR Not Detected (NotDetected); Influenza A PCR Not Detected (NotDetected); Influenza B PCR Not Detected (NotDetected); Mycoplasma pneumoniae PCR Not Detected (NotDetected); Parainfluenza Virus 1 PCR Not Detected (NotDetected); Parainfluenza Virus 2 PCR Not Detected (NotDetected); Parainfluenza Virus 3 PCR Not Detected (NotDetected); Parainfluenza Virus 4 PCR Not Detected (NotDetected); Respiratory Syncytial VirusPCR Not Detected (NotDetected); Rhinovirus/Enterovirus PCR Not Detected (NotDetected)
[2024-08-30] MEDS: guaiFENesin 600 MG TABCR PO STA (06:44)
[2024-08-30] MEDS: NSS + 20MEQ KCL 20 MEQ/1,000 ML BAG IV ONE (06:45)
[2024-08-30] MEDS: LEVALBUTEROL 1.25 MG/3 ML NEB NEB SCH (06:45)
[2024-08-30] MEDS: IPRATROPIUM BROMIDE NEB SOLN 0.02% 0.5MG/2.5ML VIAL INH SCH (06:45)
--- NOTE | 2024-08-30 07:26 | CT Scan Report ---
EXAM: CT angio chest PE protocol CLINICAL HISTORY: Chest pain, asthma, cough, sob, rule out PE. TECHNIQUE: CT angiography of the chest was performed with and without intravenous contrast with the following protocol: axial images with, reconstructed coronal and sagittal images. Non-contrast images were initially acquired, followed by contrast-enhanced images in arterial and venous phases. 118 cc's Optiray Intravenous contrast was administered using automated injection techniques. Bolus tracking was employed to optimize arterial phase imaging. One of these 3D techniques was utilized: Maximum Intensity Pixel (MIP), 3D Reconstructed Images, Volume Rendered Images, Surface Shaded Rendering. One of the following dose reduction techniques was utilized for this exam: Automated exposure control, adjustment of the mA and/or kV according to patient size, and use of iterative reconstruction. CTDI: 42.65 mGy. DLP: 855.38 mGy.cm. COMPARISON: 04/16/2021 CT. FINDINGS: Aorta and Great Vessels: Ascending Aorta: Normal in caliber, no aneurysm, dissection, or significant atherosclerosis. Aortic Arch: Normal in caliber, no aneurysm, dissection, or significant atherosclerosis. Aberrant right subclavian artery. Descending Aorta: Normal in caliber, no aneurysm, dissection, or significant atherosclerosis. Pulmonary Arteries: The main pulmonary artery and its branches are patent. No evidence of pulmonary embolism or significant stenosis. Heart: Cardiac Chambers: Normal in size. No evidence of cardiomegaly. Pericardium: No pericardial effusion or thickening. Lungs and Pleura: Lungs are clear without evidence of consolidation, collapse, or focal lesions. No pleural effusion or pleural thickening. Mediastinum: No mediastinal mass or abnormal lymphadenopathy. Normal appearance of the trachea and central bronchi. Chest Wall: No mass lesions or abnormalities in the chest wall. Vascular Structures: Superior Vena Cava: Patent without evidence of stenosis or thrombus. Inferior Vena Cava: Patent without evidence of stenosis or thrombus. Bones and Soft Tissues: No fractures, lytic, or blastic lesions of the visualized bony structures. Soft tissues are unremarkable. IMPRESSION: No evidence of acute pulmonary thromboembolism. Unchanged study. Electronically signed by Marc Rose 08-30-2024 07:26 AM
[2024-08-30 07:31] LABS: Estimated Average Glucose 134 mg/dl; Hemoglobin A1C 6.3 % (4.5-5.6)
[2024-08-30] MEDS: LOSARTAN POTASSIUM 25 MG TAB PO STA (07:43)
[2024-08-30] MEDS ORDERED: LOSARTAN POTASSIUM 25 MG TAB PO SCH (09:00)
[2024-08-30] MEDS: ATORVASTATIN 20 MG TAB PO SCH (09:45)
[2024-08-30] MEDS: predniSONE 20 MG TAB PO SCH (09:45)
[2024-08-30] MEDS: ENOXAPARIN INJ 40 MG/0.4 ML SYR SQ SCH (09:51)
--- NOTE | 2024-08-30 11:24 | Electrocardiogram Report ---
Test Reason : Blood Pressure : */* mmHG Vent. Rate : 112 BPM Atrial Rate : 112 BPM P-R Int : 152 ms QRS Dur : 82 ms QT Int : 340 ms P-R-T Axes : 66 64 66 degrees QTcB Int : 464 ms Sinus tachycardia Otherwise normal ECG When compared with ECG of 16-Apr-2021 20:42, No significant change was found Confirmed by Martha Dougherty (Shania) on 08/30/2024 11:24:20 AM Referred By: Confirmed By: Martha Dougherty
[2024-08-30] MEDS: FAMOTIDINE 20MG IV PUSH 20 MG/5 ML SYR IV STA (12:21)
--- NOTE | 2024-08-30 14:33 | Hospitalist Progress Note ---
Date of Service August 30, 2024 Assessment & Plan (1) Acute hypoxemic respiratory failure: (2) Hypertension, uncontrolled: (3) Tobacco abuse: (4) Asthma with COPD with exacerbation: Plan Patient admitted just this morning with what appears to be exacerbation of asthma/COPD Continue with steroids Continue neb treatments Suspect patient's tachycardia related to the significant mount of albuterol she received during her admission process Losartan for blood pressure control, increased dose Admission and Anticipated Discharge Date Admission Date: August 30, 2024 Subjective Patient sleeping and resting comfortably when I walked into the room, did not appear to be in any respiratory distress. Easily awakened. Still some chest tightness. Physical Exam Physical Exam: Constitutional: Alert, no acute distress, obese HEENT: Mucous membranes moist. Lungs: Decreased breath sounds, prolonged expiratory phase, tight airflow, tight wheezes CV: S1-S2, regular Abdomen: Soft, nontender, nondistended Extremities: No significant edema Neuro: No focal deficits Psych: Cooperative, normal mood Results & Data Results & Data Vital Signs (Past 12 Hours) Vital Signs Temp Pulse Pulse Pulse Resp BP BP 08/30/24 13:43 109 H 08/30/24 12:09 08/30/24 11:35 36.6 C 120 H 20 163/104 H 08/30/24 10:51 122 H 18 08/30/24 08:59 109 H 08/30/24 08:51 08/30/24 08:51 36.6 C 103 H 20 08/30/24 08:51 08/30/24 07:56 08/30/24 07:41 110 H 15 08/30/24 06:42 102 H 167/97 H 08/30/24 06:22 111 H 134/99 08/30/24 06:00 107 H 20 08/30/24 05:07 105 H 22 08/30/24 05:00 102 H 20 08/30/24 03:45 112 H 08/30/24 03:32 08/30/24 03:32 36.6 C 104 H 18 164/117 H 08/30/24 03:32 BP Pulse Ox Pulse Ox O2 Del Method O2 Del Method O2 Flow Rate O2 Flow Rate 08/30/24 13:43 08/30/24 12:09 94 Nasal Cannula 2 08/30/24 11:35 90 Room Air 08/30/24 10:51 95 Nasal Cannula 2 08/30/24 08:59 08/30/24 08:51 Nasal Cannula 2 08/30/24 08:51 174/105 H 93 Nasal Cannula 2 08/30/24 08:51 93 Nasal Cannula 2 08/30/24 07:56 Nasal Cannula 2 08/30/24 07:41 164/94 H 92 Nasal Cannula 2 08/30/24 06:42 08/30/24 06:22 08/30/24 06:00 134/99 97 Nebulizer 6 08/30/24 05:07 91 Nasal Cannula 2 08/30/24 05:00 173/101 H 91 Nasal Cannula 2 08/30/24 03:45 08/30/24 03:32 89 L Room Air, Nasal Cannula 0 08/30/24 03:32 89 L Room Air 08/30/24 03:32 Room Air, Nasal Cannula 2 Diagnostic Findings Reviewed imaging, laboratory and diagnostic studies. Pertinent findings as below.
[2024-08-30] MEDS: LOSARTAN POTASSIUM 50 MG TAB PO ONE (15:01)
[2024-08-30] MEDS: LORazepam 0.5 MG TAB PO PRN (15:04)
[2024-08-30] MEDS: LORazepam 0.5 MG TAB ONE (15:20)
[2024-08-30] MEDS: guaiFENesin 600 MG TABCR PO SCH (20:09)
[2024-08-30] MEDS ORDERED: FAMOTIDINE 20MG IV PUSH 20 MG/5 ML SYR IV SCH (21:00)
[2024-08-31 07:48] LABS: Basophils # (auto) 0.02 K/uL (0.00-0.20); Basophils % (auto) 0.2 %; Eosinophils # (auto) 0.02 K/uL (0.00-0.50); Eosinophils % (auto) 0.2 %; Hematocrit (blood only) 40.9 % (37.0-47.0); Hemoglobin 13.5 g/dl (12.0-16.0); Immature Granulocytes # (auto) 0.05 K/uL (0.01-0.20); Immature Granulocytes % (auto) 0.4 %; Lymphocytes # (auto) 2.58 K/uL (1.20-3.40); Lymphocytes % (auto) 20.3 %; Mean Corpuscular Hemoglobin 29.9 pg (25.0-34.0); Mean Corpuscular Volume 90.5 fL (80.0-100.0); Mean Platelet Volume 10.8 fL (9.4-12.4); Monocytes # (auto) 1.13 K/uL (0.11-0.59); Monocytes % (auto) 8.9 %; Neutrophils # (auto) 8.88 K/uL (1.40-6.50); Platelet Count 345 K/uL (130-400); RDW Coefficient of Variation 14.3 % (11.5-14.5); RDW Standard Deviation 47.6 fL (36.4-46.3); Red Blood Count 4.52 M/uL (4.20-5.40); White Blood Count 12.68 K/ul (4.8-10.8)
[2024-08-31 08:02] LABS: BUN Creatinine Ratio 17.6 (10-20); Calcium 9.5 mg/dl (8.6-10.3); Creatinine Clr Calc Pharmacy 84.1 ml/min; Potassium 3.9 mmol/L (3.5-5.1)
[2024-08-31] MEDS: LOSARTAN POTASSIUM 50 MG TAB PO SCH (08:08)
[2024-08-31] MEDS ORDERED: LOSARTAN POTASSIUM 25 MG TAB PO SCH (09:00)
--- NOTE | 2024-08-31 11:17 | Hospitalist Progress Note ---
Date of Service August 31, 2024 Assessment & Plan (1) Acute hypoxemic respiratory failure: (2) Asthma with COPD with exacerbation: (3) Hypertension, uncontrolled: (4) Tobacco abuse: Plan Patient with acute exacerbation of asthma/COPD possibly due to viral infection Continue steroids Continue nebulizers Restart home inhalers Take aggressive mucolytic's and antitussives Titrate oxygen to off as able, patient may eventually need home oxygen Admission and Anticipated Discharge Date Admission Date: August 30, 2024 Subjective Patient states that she still has some tightness in her chest and has some coughing spasms that really exacerbates her symptoms but overall feels improved compared to yesterday Physical Exam Physical Exam: Constitutional: Alert, nontoxic, no respiratory distress HEENT: Mucous membranes moist. Lungs: Decreased breath sounds, prolonged expiratory phase, few scattered wheezes CV: S1-S2, regular Abdomen: Soft, nontender, nondistended Extremities: No significant edema Neuro: No focal deficits Psych: Cooperative, normal mood Results & Data Results & Data Vital Signs (Past 12 Hours) Vital Signs Temp Pulse Pulse Resp BP BP Pulse Ox 08/31/24 10:51 37.0 C 99 H 18 133/88 94 08/31/24 10:38 97 H 18 97 08/31/24 07:41 08/31/24 07:13 36.4 C L 97 H 20 164/97 H 94 08/31/24 07:10 94 H 08/31/24 05:53 112 H 18 89 L 08/31/24 04:08 36.6 C 90 20 128/83 92 08/30/24 23:59 36.7 C 90 20 117/74 94 O2 Del Method O2 Flow Rate 08/31/24 10:51 Nasal Cannula 4 08/31/24 10:38 Nasal Cannula 4 08/31/24 07:41 Nasal Cannula 2 08/31/24 07:13 Nasal Cannula 4 08/31/24 07:10 08/31/24 05:53 Nasal Cannula 3 08/31/24 04:08 Nasal Cannula 3 08/30/24 23:59 Nasal Cannula 3 Diagnostic Findings Reviewed imaging, laboratory and diagnostic studies. Pertinent findings as below. Electrolytes stable Creatinine 0.85 WBCs 12.6, increase due to steroids
[2024-08-31] MEDS: FLUTICASONE/VILANTEROL 100/25MCG 14 PUFFS/INHALER INH SCH (13:28)
[2024-08-31] MEDS: BENZONATATE 100 MG CAPSULE PO SCH (13:28)
[2024-08-31] MEDS: UMECLIDINIUM BROMIDE 62.5MCG/BLISTER 7 PUFFS/INHALER INH SCH (13:29)
[2024-08-31] MEDS: guaiFENesin 600 MG TABCR PO SCH (20:53)
[2024-08-31] MEDS: HYDROcodone/HOMATROPINE SYRUP 5MG/1.5MG 5ML UDP PO PRN (21:02)
[2024-09-01] MEDS: ALBUTEROL HFA 8 GM INHALER INH PRN (05:35)
--- NOTE | 2024-09-01 07:49 | Hospitalist Progress Note ---
Date of Service September 01, 2024 Assessment & Plan (1) Acute hypoxemic respiratory failure: (2) Asthma with COPD with exacerbation: (3) Hypertension, uncontrolled: (4) Tobacco abuse: Plan Ms. Valdez is a 49 year old woman with edical history significant for asthma/COPD, hypertension, chronic back pain, past tobacco abuse who us admitted for acute hypoxic resp failure iso acute copd exacerbation. Patient with lapse in insurance and unable to pay out of pocket for prescriptions. Working with case management ensure home o2 and plan for discharge. Medical assistance is pending . #Acute hypoxic resp failure #Acute COPD/asthma exacerbation Viral panel negative, leukocytosis iso steroids continue on ICS/LAMA/LABA continue on mucinex bid remains on nebs around the clock Prednisone x 5 days start azithro 500mg x 3 days for guideline directed therapy #HTN Previously on HCTZ Started on Losartan, pressures in low 100s, will hold for now and consider lower dosing #HLD continue statin PCP Isac CROCKETT DVT lovenox Admission and Anticipated Discharge Date Admission Date: August 30, 2024 Subjective Still requiring oxygen states she cannot spend any amount out of pocket for prescriptions given financial hardship at this time Reports subjective improvement overall but still requiring O2 at this time Physical Exam Constitutional: WD/WN, vitals as above Respiratory: normal respiratory effort, lungs clear to auscultation (2L NC) Cardiovascular: RRR, no murmur, no edema Results & Data Results & Data Vital Signs (Past 12 Hours) Vital Signs Temp Pulse Resp BP BP Pulse Ox O2 Del Method 09/01/24 05:36 91 H 18 93 Nasal Cannula 08/31/24 23:51 36.5 C 77 20 105/69 98 Nasal Cannula 08/31/24 21:00 Nasal Cannula 08/31/24 20:00 90 18 96 Nasal Cannula 08/31/24 19:57 36.5 C 85 20 115/76 96 Nasal Cannula O2 Flow Rate 09/01/24 05:36 2 08/31/24 23:51 3 08/31/24 21:00 2 08/31/24 20:00 3 08/31/24 19:57 3 Laboratory Results Short CBC 08/31/24 Range/Units 07:10 WBC 12.68 H (4.8-10.8) K/ul Hgb 13.5 (12.0-16.0) g/dl Hct 40.9 (37.0-47.0) % Plt Count 345 (130-400) K/uL BMP 08/31/24 07:10 Sodium 139 Potassium 3.9 Chloride 103 Carbon Dioxide 28 BUN 15 Creatinine 0.85 Glucose 115 H Calcium 9.5 Medications Administered Home Medications Medication Instructions Recorded Confirmed Last Taken albuterol sulfate 2.5 mg/3 mL 2.5 mg (3 mL) inhalation QID PRN 04/21/21 08/30/24 Unknown (0.083 %) solution for nebulization Shortness Of Breath Or Wheezing #90 mL albuterol sulfate 90 mcg/actuation 2 puff inhalation Q6H PRN 04/21/21 08/30/24 Unknown aerosol inhaler Shortness Of Breath Or Wheezing #1 inhaler atorvastatin 20 mg tablet 20 mg PO 1XD 08/30/24 08/30/24 Unknown diclofenac sodium 1 % topical gel 2 g topical 4XD PRN Pain 08/30/24 08/30/24 Unknown fluticasone 500 mcg-salmeterol 50 1 inh inhalation 2XD 08/30/24 08/30/24 Unknown mcg/dose blistr powdr for inhalation hydrochlorothiazide 25 mg PO DAILY 08/30/24 08/30/24 Unknown tiotropium bromide 1.25 2 inh inhalation 1XD 08/30/24 08/30/24 Unknown mcg/actuation mist for inhalation (Spiriva Respimat) Active Medications Generic Name Dose Route Start Last Admin Trade Name Freq PRN Reason Stop Dose Admin Albuterol 2 puffs 08/31/24 11:13 09/01/24 05:35 Albuterol Hfa 8 Gm Inhaler INH 09/30/24 11:12 2 puffs Q6H PRN Administration Shortness Of Breath Or Wheezing Atorvastatin Calcium 20 mg 08/30/24 09:00 08/31/24 08:08 Atorvastatin 20 Mg Tab PO 09/29/24 08:59 20 mg QAM ADELE Administration Benzonatate 200 mg 08/31/24 14:00 08/31/24 20:53 Benzonatate 100 Mg Capsule PO 09/30/24 13:59 Not Given TID ADELE Enoxaparin Sodium 40 mg 08/30/24 09:00 08/31/24 08:05 Enoxaparin Inj 40 Mg/0.4 Ml Syr SQ 09/29/24 08:59 Not Given QAM ADELE Fluticasone/Vilanterol 1 puffs 08/31/24 12:00 08/31/24 13:28 Fluticasone/Vilanterol 100/25mcg 14 Puffs/Inhaler INH 09/30/24 11:59 1 puffs DAILY ADELE Administration Protocol Guaifenesin 1,200 mg 08/31/24 21:00 08/31/24 20:53 Guaifenesin 600 Mg Tabcr PO 09/30/24 20:59 1,200 mg Q12 ADEEL Administration Hydrocodone Bit/Homatropine Methylb 5 ml 08/31/24 11:17 08/31/24 21:02 Hydrocodone/Homatropine Syrup 5mg/1.5mg 5ml Udp PO 09/14/24 11:16 5 ml Q6H PRN Administration Cough Ipratropium Fenton 0.5 mg 08/30/24 07:00 08/31/24 19:56 Ipratropium Fenton Neb Soln 0.02% 0.5mg/2.5ml Vial INH 09/29/24 06:59 0.5 mg QIDR ADELE Administration Levalbuterol HCl 1.25 mg 08/30/24 07:00 08/31/24 19:57 Levalbuterol 1.25 Mg/3 Ml Neb NEB 09/29/24 06:59 1.25 mg QIDR ADELE Administration Lorazepam 0.5 mg 08/30/24 14:58 08/31/24 15:11 Lorazepam 0.5 Mg Tab PO 09/29/24 14:57 0.5 mg Q8H PRN Administration Anxiety Losartan Potassium 100 mg 08/31/24 09:00 08/31/24 08:08 Losartan Potassium 50 Mg Tab PO 09/30/24 08:59 100 mg QAM ADELE Administration Prednisone 40 mg 08/30/24 09:00 08/31/24 08:08 Prednisone 20 Mg Tab PO 09/03/24 08:59 40 mg DAILY ADELE Administration Umeclidinium Fenton 1 puffs 08/31/24 12:00 08/31/24 13:29 Umeclidinium Fenton 62.5mcg/Blister 7 Puffs/Inhaler INH 09/30/24 11:59 1 puffs DAILY ADELE Administration Protocol
[2024-09-01] MEDS: AZITHROMYCIN 250 MG TAB PO SCH (08:38)
[2024-09-01] MEDS ORDERED: LEVALBUTEROL 1.25 MG/3 ML NEB NEB PRN (16:49)
[2024-09-01] MEDS: CALCIUM CARBONATE 500 MG CHEWABLE TAB PO ONE (18:38)
[2024-09-01] MEDS: ALUMINUM/MAGNESIUM/SIMETH (MAALOX MAX) 30 ML UDC PO STA (18:56)
[2024-09-02] MEDS ORDERED: ALBUTEROL HFA 8 GM INHALER INH PRN (08:42)
[2024-09-02] MEDS: ALBUT/IPRATROP 3MG/0.5MG NEB 3 ML VIAL NEB STA (09:06)
[2024-09-02 09:28] LABS: Creatinine Clr Calc Pharmacy 73.3 ml/min
--- NOTE | 2024-09-02 14:48 | Hospitalist Progress Note ---
Date of Service September 02, 2024 Assessment & Plan (1) Acute hypoxemic respiratory failure: (2) Asthma with COPD with exacerbation: (3) Hypertension, uncontrolled: (4) Tobacco abuse: Plan Ms. Valdez is a 49 year old woman with edical history significant for asthma/COPD, hypertension, chronic back pain, past tobacco abuse who us admitted for acute hypoxic resp failure iso acute copd exacerbation. Patient with lapse in insurance and unable to pay out of pocket for prescriptions. Working with case management ensure home o2 and plan for discharge. Medical assistance is pending . #Acute hypoxic resp failure #Acute COPD/asthma exacerbation Viral panel negative, leukocytosis iso steroids continue on ICS/LAMA/LABA continue on mucinex bid remains on nebs around the clock Prednisone x 5 days continue azithro 500mg x 3 days for guideline directed therapy #HTN Previously on HCTZ Started on Losartan, pressures in low 100s, will hold for now and consider lower dosing #HLD continue statin PCP Isac CROCKETT DVT lovenox Admission and Anticipated Discharge Date Admission Date: August 30, 2024 Subjective Reports issues with obtaining inhaler However after getting treatements doing much better in the am states there is no acceptable amount of out of pocket cost Physical Exam Constitutional: WD/WN, vitals as above Respiratory: normal respiratory effort, lungs clear to auscultation Cardiovascular: RRR, no murmur, no edema 2L Results & Data Results & Data Vital Signs (Past 12 Hours) Vital Signs Temp Pulse Resp BP Pulse Ox O2 Del Method O2 Flow Rate 09/02/24 09:10 20 93 Nasal Cannula 09/02/24 08:30 Nasal Cannula 2 09/02/24 07:36 36.5 C 87 18 130/85 93 Room Air Laboratory Results [facility] 09/02/24 08:56 Creatinine 0.98 Medications Administered Home Medications Medication Instructions Recorded Confirmed Last Taken albuterol sulfate 2.5 mg/3 mL 2.5 mg (3 mL) inhalation QID PRN 04/21/21 08/30/24 Unknown (0.083 %) solution for nebulization Shortness Of Breath Or Wheezing #90 mL albuterol sulfate 90 mcg/actuation 2 puff inhalation Q6H PRN 04/21/21 08/30/24 Unknown aerosol inhaler Shortness Of Breath Or Wheezing #1 inhaler atorvastatin 20 mg tablet 20 mg PO 1XD 08/30/24 08/30/24 Unknown diclofenac sodium 1 % topical gel 2 g topical 4XD PRN Pain 08/30/24 08/30/24 Unknown fluticasone 500 mcg-salmeterol 50 1 inh inhalation 2XD 08/30/24 08/30/24 Unknown mcg/dose blistr powdr for inhalation hydrochlorothiazide 25 mg PO DAILY 08/30/24 08/30/24 Unknown tiotropium bromide 1.25 2 inh inhalation 1XD 08/30/24 08/30/24 Unknown mcg/actuation mist for inhalation (Spiriva Respimat) fluticasone 250 mcg-salmeterol 50 1 inh inhalation BID #60 ea 09/02/24 Unknown mcg/dose blistr powdr for inhalation (Wixela Inhub) Active Medications Generic Name Dose Route Start Last Admin Trade Name Freq PRN Reason Stop Dose Admin Atorvastatin Calcium 20 mg 08/30/24 09:00 09/02/24 08:33 Atorvastatin 20 Mg Tab PO 09/29/24 08:59 20 mg QAM ADELE Administration Azithromycin 500 mg 09/01/24 09:00 09/02/24 08:33 Azithromycin 250 Mg Tab PO 09/03/24 09:01 500 mg QAM ADELE Administration Benzonatate 200 mg 08/31/24 14:00 09/02/24 13:12 Benzonatate 100 Mg Capsule PO 09/30/24 13:59 Not Given TID ADELE Enoxaparin Sodium 40 mg 08/30/24 09:00 09/02/24 08:32 Enoxaparin Inj 40 Mg/0.4 Ml Syr SQ 09/29/24 08:59 Not Given QAM ADELE Fluticasone/Vilanterol 1 puffs 08/31/24 12:00 09/02/24 08:32 Fluticasone/Vilanterol 100/25mcg 14 Puffs/Inhaler INH 09/30/24 11:59 1 puffs DAILY ADELE Administration Protocol Guaifenesin 1,200 mg 08/31/24 21:00 09/02/24 08:34 Guaifenesin 600 Mg Tabcr PO 09/30/24 20:59 1,200 mg Q12 ADELE Administration Hydrocodone Bit/Homatropine Methylb 5 ml 08/31/24 11:17 09/01/24 20:53 Hydrocodone/Homatropine Syrup 5mg/1.5mg 5ml Udp PO 09/14/24 11:16 5 ml Q6H PRN Administration Cough Lorazepam 0.5 mg 08/30/24 14:58 09/01/24 13:38 Lorazepam 0.5 Mg Tab PO 09/29/24 14:57 0.5 mg Q8H PRN Administration Anxiety Losartan Potassium 100 mg 08/31/24 09:00 08/31/24 08:08 Losartan Potassium 50 Mg Tab PO 09/30/24 08:59 100 mg QAM ADELE Administration Prednisone 40 mg 08/30/24 09:00 09/02/24 08:34 Prednisone 20 Mg Tab PO 09/03/24 08:59 40 mg DAILY ADELE Administration Umeclidinium [place] 1 puffs 08/31/24 12:00 09/02/24 08:32 Umeclidinium [place] 62.5mcg/Blister 7 Puffs/Inhaler INH 09/30/24 11:59 1 puffs DAILY ADELE Administration Protocol
[2024-09-02] MEDS: IBUPROFEN 200 MG TAB PO STA (16:17)
[2024-09-02 22:13] VITALS: TEMP 97.9
[2024-09-03 07:26] VITALS: RESP 18; O2SAT 91
--- NOTE | 2024-09-03 12:37 | Discharge Summary ---
Discharge Summary Date of Service September 03, 2024 Principal Dx & Hospital Course #1 = Principal Diagnosis (1) Acute hypoxemic respiratory failure: (2) Asthma with COPD with exacerbation: (3) Hypertension, uncontrolled: (4) Tobacco abuse: Plan Ms. Valdez is a 49 year old woman with edical history significant for asthma/COPD, hypertension, chronic back pain, past tobacco abuse who us admitted for acute hypoxic resp failure iso acute copd exacerbation. Patient with lapse in insurance and unable to pay out of pocket for prescriptions. Patient improved with prednisone and azithro. Ultimately, patient weaned off oxygen. Course complicated by inability to obtain inhalers; however, able to acquire month supply of trelegy for patient. Patient was given information on how to follow up with application for assistance and encouraged to please continue to puruse aid to prevent lapse in medications. Patient verbalized understanding. #Acute hypoxic resp failure #Acute COPD/asthma exacerbation Viral panel negative, leukocytosis iso steroids continue on ICS/LAMA/LABA continue on mucinex bid completed Prednisone x 5 days completed azithro 500mg x 3 days for guideline directed therapy #HTN script for prior HCTZ sent #HLD continue statin Notes For Next Care Provider Medication Changes From Visit Trelegy inhaler (samples obtained from OP office) given for month supply to provide substitute for ICS/LABA/LAMA Admission HPI Per Admitting Provider History obtained from patient and records. Medical history significant for asthma/COPD, hypertension, chronic back pain, past tobacco abuse. Last confinement 2020 for asthma/COPD exacerbation. Patient ran out of home medications/inhalers last month due to insurance issues. Progressive shortness of breath, dry cough symptoms with pleuritic chest pain since yesterday. Not sure about sick contacts. No aspiration. No fluid retention. Symptoms unresponsive to neb treatment at home. Patient received Solu-Medrol and neb treatment en route to ER. O2 sats 80s upon arrival at the ER. 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, unemployed Admission Exam Per Admitting Provider GENERAL: Comfortable, obese, pleasant, no respiratory distress SKIN: Normal color, warm HEENT: Marina palpebral conjunctivae, no ptosis, moist buccal mucosa, nasal cannula in place NECK : Supple, short neck, no tenderness CHEST : Decreased breath sounds, expiratory wheezes, no tenderness HEART : Tachycardic, no obvious murmurs ABDOMEN: Some distention, nontender EXTREMITIES : No LE swelling/tenderness, no other conspicuous deformities noted NEUROLOGIC : Coherent, no facial asymmetry, no other gross focality Discharge Exam Constitutional WD/WN, vitals as above Respiratory normal respiratory effort, lungs clear to auscultation Cardiovascular RRR, no murmur, no edema Musculoskeletal no cyanosis or clubbing, extremities motor strength 5/5 Updated Medication List Medication Instructions Recorded Confirmed Type albuterol sulfate 2.5 mg/3 mL 2.5 mg (3 mL) inhalation QID PRN 04/21/21 08/30/24 Rx (0.083 %) solution for nebulization Shortness Of Breath Or Wheezing #90 mL albuterol sulfate 90 mcg/actuation 2 puff inhalation Q6H PRN 04/21/21 08/30/24 Rx aerosol inhaler Shortness Of Breath Or Wheezing #1 inhaler diclofenac sodium 1 % topical gel 2 g topical 4XD PRN Pain 08/30/24 08/30/24 History fluticasone 500 mcg-salmeterol 50 1 inh inhalation 2XD 08/30/24 08/30/24 History mcg/dose blistr powdr for inhalation tiotropium bromide 1.25 2 inh inhalation 1XD 08/30/24 08/30/24 History mcg/actuation mist for inhalation (Spiriva Respimat) atorvastatin 20 mg tablet 20 mg PO 1XD 30 days #30 tabs 09/03/24 Rx hydrochlorothiazide 25 mg tablet 25 mg PO DAILY #30 tabs 09/03/24 Rx Hospital Stay Data Consultations 08/30/24 05:39 ED Decision to Admit Stat Diagnostic Imagining Performed 08/30/24 06:17 CT angio chest PE protocol Stat Pending Results Patient Have Any Pending Studies at Discharge: No Discharge Instructions Given to Patient (Per Discharging Provider) You were admitted for COPD exacerbation after lapse in insurance prevented you from obtaining your inhalers. The application has been started here in the hospital, please continue to follow up and ensure your insurance is reinstated. This will help you obtain your inhalers. Your blood pressure medication was refilled--Hydrochlorothiazide 25mg daily Please resume this. There are coupons to syrup mixer helper in lowering the cost and it should remain under $20.00 You will be given a short course of inhalers to help bridge until your coverage comes in Total Time Total Time Spent Total Time Spent (In Minutes): 45
[2024-09-03 15:14] VITALS: PULSE 106
[2024-09-03 17:14] VITALS: BP 124/83
== END 2024-09-03 18:28 | disposition home or self-care (01) | DRG 189 ==
LOC: ED 03:40 → 2N 06:05 → SUATTDRO 06:05 → 2N 07:56

== ENCOUNTER 2024-09-05 11:20 | Inpatient (IN) ==
--- NOTE | 2024-09-05 11:57 | Emergency Department Note ---
Impression & Plan Elevated troponin, COPD (chronic obstructive pulmonary disease), Chest pain ED Provider Note Name: LUCIAN BRODY Age: 49 Sex: Female Arrives Via: Ambulance Informant: Patient, EMS ED Provider: Tj Wynn MD Chief Complaint: Shortness of breath and chest pain. Impression: As per impressions above Medical Decision Makin-year-old female arrives for evaluation of worsening shortness of breath and developing chest pressure and tightness over the last few hours. Given steroids and DuoNeb and route with improvement. On arrival notes just some mild chest tightness consistent with her breathing breathing issues. EKG is somewhat reassuring. Chest x-ray is unremarkable. Laboratory workup does reveal a mildly elevated troponin which is notable as she had a low troponin on previous visit about a week ago. Patient has been unable to fill her prescriptions due to insurance issues. In the setting of chest pain, elevated troponin and inability to continue treating as an outpatient hospitalization is indicated. Patient was given some aspirin in the setting of chest pain and elevated troponin. I do not feel that she has a STEMI and I do not feel that starting heparin at this time would be indicated. Hospitalist consulted for further management. I do not feel patient has findings consistent with PE as she has much more likely cause being COPD exacerbation. Triage/Nursing Notes reviewed by Me External Chart Review by me: Reviewed discharge summary from 08/30/2024 discussing treatment plan and management. Differential:Reactive airway disease, pneumonia, pneumothorax, COPD, CHF, infections, cardiac ischemia, pulmonary embolism, musculoskeletal, gastrointestinal, as well as other pathologies. Vital Signs: reviewed and remarkable for tachy Interventions: aspirin po Labs:ED labs Reviewed by me and remarkable for + troponin Imaging:X ray results are stated below per my interpretation: Chest: 1 view: No infiltrate, no effusion, normal cardiac border. EKG:As per my interpretation. Indication shortness of breath and chest pain. Normal sinus rhythm at 95 beats per and a QTc of 472. There is no ectopy nor ischemia. When compared to EKG of 08/30/2024 there is no significant change. Cardiac/Tele Monitoring: Cardiac Monitoring: An Order was placed for continuous cardiac monitoring. The monitor shows a rate of 80 with a normal sinus rhythm. Consults:Discussed with [facility] hospitalist who will evaluate and bring in for further management. Plan: Disposition:Hospitalization. Condition: Good History of Present Illness: 49-year-old female with a long history of COPD and recurrent hospitalizations who was admitted last week for COPD exacerbation arrives a few days postdischarge with worsening breathing difficulty and now developing chest tightness and pressure. Overnight developing substernal chest pains. This morning called 911. EMS gave her steroids and DuoNeb en route with significant improvement in her symptoms. Patient denies any current chest pain other than some very vague tightness throughout and feels it is more consistent with her breathing issues. Notes some mild tightness. Denies any fevers, chills, headache, neck pain, abdominal pain, nausea, vomiting, syncope, leg swelling, calf pain or other concerning signs or symptoms. Using inhaler at home. She has not been on any of her steroids or antibiotics as she is unable to fill them at pharmacy due to lack of money. Past Medical History:See Below Home Medications:See Below Allergies:tylenol Vitals:Blood Pressure: 127/95, Pulse 123, RR 30, T 36.7C, O2 92% on RA Physical Exam: GENERAL: Patient is mildly uncomfortable appearing and in minimal distress. RESPIRATORY: Mild tachypnea/dyspnea with some mild wheezing throughout. CARDIOVASCULAR: Mildly tachycardic.No murmur appreciated. GASTROINTESTINAL: Abdomen soft, non-tender, no peritonitis. EXTREMITIES: Normal motion all extremities, no cyanosis, no edema. NEUROLOGIC: Alert and oriented. No focal neurologic deficits appreciated SKIN: No rash, no jaundice, no diaphoresis. PSYCH: Appropriate GCS: 15 ED Course: Times/Reassessments: Patient feeling better breathing comfortably heart rate is coming down. Tj Wynn MD Past Med/Surg History Problem List (Updated 09/06/24 @ 11:51 by Tj Wynn MD) Chest pain (Acute) Nausea vomiting and diarrhea Hypertension, uncontrolled Hypoxia (Acute) COPD exacerbation (Acute) Recurrent non-productive cough Tobacco abuse Acute asthma exacerbation Acute hypoxemic respiratory failure Syncope (Acute) Elevated troponin (Acute) Acute respiratory failure with hypoxia (Acute) Asthma with COPD with exacerbation COPD (chronic obstructive pulmonary disease) (Acute) Asthma Medical History Arthritis Surgical History Tubal ligation status Previous section S/P cholecystectomy Family History Father Heart disease Hypertension Social History Smoking Status: Former smoker Tobacco Type: Cigarettes Cigarettes Per Day: 3; Second Hand Exposure: Yes; Do You Dip or Chew Tobacco: No; Tobacco Cessation Education Requested by Patient: No Hx Alcohol Use: No Hx Substance Use: No Preferred Language: Filipino Communication Ability: Effective Production Assembly Supervisor Required: No Beliefs That Will Affect Care: None Current Living Situation: Spouse Current Living Situation Comment: friend Other Information That Helps Us Care for You: No Feels Safe at Home: Yes Safety Concerns: Feels Safe At This Time Assistive Devices: Cane Allergies Allergies Allergy/AdvReac Type Severity Reaction Status Date / Time acetaminophen [From Tylenol] Allergy Mild Gastrointestinal Unverified 08/30/24 04:29 Upset Home Meds Home Medications Medication Instructions Recorded Confirmed diclofenac sodium 1 % topical gel 2 g topical 4XD PRN Pain 08/30/24 09/05/24 fluticasone 500 mcg-salmeterol 50 1 inh inhalation 2XD 08/30/24 09/05/24 mcg/dose blistr powdr for inhalation tiotropium bromide 1.25 2 inh inhalation 1XD 08/30/24 09/05/24 mcg/actuation mist for inhalation (Spiriva Respimat) Previous Rx's Medication Instructions Recorded albuterol sulfate 90 mcg/actuation 2 puff inhalation Q6H PRN 04/21/21 aerosol inhaler Shortness Of Breath Or Wheezing #1 inhaler atorvastatin 20 mg tablet 20 mg PO 1XD 30 days #30 tabs 09/03/24 hydrochlorothiazide 25 mg tablet 25 mg PO DAILY #30 tabs 09/03/24 Results & Data (ED) Vital Signs Vital Signs - 24 hr 09/05/24 12:12 09/05/24 12:45 09/05/24 13:30 Pulse Rate 119 H 112 H 110 H Pulse Rate from SpO2 Sensor 113 H Respiratory Rate 17 24 Blood Pressure 133/82 161/109 H Blood Pressure Mean 99 117 Pulse Oximetry 95 94 Oxygen Delivery Method Nasal Cannula Nasal Cannula Oxygen Flow Rate 1.5 Oxygen Flow Rate - Titration Pulse Oximetry Post Tiitration 09/05/24 13:35 09/05/24 13:59 Pulse Rate 111 H Pulse Rate from SpO2 Sensor 110 H Respiratory Rate 20 Blood Pressure 169/136 H Blood Pressure Mean 147 Pulse Oximetry 93 93 Oxygen Delivery Method Oxygen Flow Rate 1.5 Oxygen Flow Rate - Titration 0 Pulse Oximetry Post Tiitration 88 L Laboratory Data 09/06/24 05:48 09/06/24 05:48 Lab Results 09/05/24 09/05/24 Range/Units 11:56 12:05 WBC 11.35 H (4.8-10.8) K/ul RBC 5.16 (4.20-5.40) M/uL Hgb 15.7 (12.0-16.0) g/dl Hct 44.9 (37.0-47.0) % MCV 87.0 (80.0-100.0) fL MCH 30.4 (25.0-34.0) pg MCHC 35.0 (32.0-36.0) g/dL RDW Std Deviation 43.0 (36.4-46.3) fL RDW Coeff of Ahmet 13.4 (11.5-14.5) % Plt Count 330 (130-400) K/uL MPV 10.6 (9.4-12.4) fL Immature Gran % (Auto) 0.4 % Neut % (Auto) 85.0 % Lymph % (Auto) 4.8 % [place] % (Auto) 8.6 % Eos % (Auto) 1.0 % Baso % (Auto) 0.2 % Neut # (Auto) 9.65 H (1.40-6.50) K/uL Lymph # (Auto) 0.55 L (1.20-3.40) K/uL [place] # (Auto) 0.98 H (0.11-0.59) K/uL Eos # (Auto) 0.11 (0.00-0.50) K/uL Baso # (Auto) 0.02 (0.00-0.20) K/uL Immature Gran # (Auto) 0.04 (0.01-0.20) K/uL Sodium 135 L (136-145) mmol/L Potassium 3.6 (3.5-5.1) mmol/L Chloride 97 L (98-107) mmol/L Carbon Dioxide 26 (21-32) mmol/L Anion Gap 12 H (3-11) BUN 16 (6-23) mg/dl Creatinine 0.91 (0.6-1.2) mg/dl Est Cr Clr Drug Dosing 77.2 ml/min eGFR 76.86 BUN/Creatinine Ratio 17.6 (10-20) Glucose 156 H (70-99(Fasting)) mg/dl Calcium 9.0 (8.6-10.3) mg/dl Magnesium 2.1 (1.7-2.4) mg/dl Total Bilirubin 0.6 (0.2-1.0) mg/dl Direct Bilirubin 0.1 (0-0.2) mg/dl AST 22 (13-39) U/L ALT 32 (7-52) U/L Alkaline Phosphatase 41 (34-104) U/L Troponin I High Sens 19.6 H (0-14) pg/ml Total Protein 7.6 (6.0-8.3) gm/dl Albumin 4.4 (3.4-5.0) gm/dl SARS-CoV-2 (PCR) NEGATIVE (Negative) Influenza Type A (PCR) Negative (Neg) Influenza Type B (PCR) Negative (Neg) RSV (RT-PCR) Negative (Neg) Administered Medications Al Hydrox/Mg Hydrox/Simethicone (Aluminum/Magnesium/Simeth (Maalox Max) 30 Ml Udc) 30 ml PO Q6H PRN PRN Reason: Heartburn Stop: 10/05/24 20:35 Last Admin: 09/05/24 21:29 Dose: 30 ml Documented By: CHAPINCITO Aspirin (Aspirin 81 Mg Ectab) [facility] Stop: 10/05/24 18:59 Last Admin: 09/06/24 08:52 Dose: 81 mg Documented By: Admin: 09/05/24 21:17 Dose: Not Given Documented By: [id number] Atorvastatin Calcium (Atorvastatin 40 Mg Tab) 40 mg [facility] Stop: 10/05/24 18:59 Last Admin: 09/06/24 08:52 Dose: 40 mg Documented By: Admin: 09/05/24 20:13 Dose: 40 mg Documented By: [id number] Budesonide (Budesonide 0.5 Mg/2 Ml Vial (Pulmicort)) 0.5 mg NEB [facility] Stop: 10/05/24 18:59 Last Admin: 09/06/24 08:13 Dose: 0.5 mg Documented By: Admin: 09/05/24 19:35 Dose: 0.5 mg Documented By: RONI Enoxaparin Sodium (Enoxaparin Inj 40 Mg/0.4 Ml Syr) 40 mg SQ Q24H ADELE Stop: 10/05/24 17:59 Last Admin: 09/05/24 18:08 Dose: 40 mg Documented By: RAJIV Formoterol Fumarate (Formoterol 20 Mcg/2 Ml Vial) 20 mcg NEB BIDR ADELE Stop: 10/05/24 18:59 Last Admin: 09/06/24 08:13 Dose: 20 mcg Documented By: Admin: 09/05/24 19:35 Dose: 20 mcg Documented By: RONI Hydrochlorothiazide (Hydrochlorothiazide 25 Mg Tab) 25 mg PO DAILY ADELE Stop: 10/05/24 17:59 Last Admin: 09/06/24 08:52 Dose: 25 mg Documented By: Admin: 09/05/24 18:09 Dose: 25 mg Documented By: RAJIV Ipratropium [place] (Ipratropium [place] Neb Soln 0.02% 0.5mg/2.5ml Vial) 0.5 mg NEB Q6R ADELE Stop: 10/05/24 18:59 Last Admin: 09/06/24 08:12 Dose: Not Given Documented By: Admin: 09/06/24 00:30 Dose: 0.5 mg Documented By: Admin: 09/05/24 19:35 Dose: Not Given Documented By: RONI Levalbuterol HCl (Levalbuterol 1.25 Mg/3 Ml Neb) 1.25 mg NEB Q6H ADELE Stop: 10/05/24 17:04 Last Admin: 09/06/24 08:12 Dose: Not Given Documented By: Admin: 09/06/24 00:30 Dose: 1.25 mg Documented By: Admin: 09/05/24 19:35 Dose: Not Given Documented By: RONI Ondansetron HCl (Ondansetron Inj 2 Mg/Ml 2 Ml Vial) 4 mg IV Q6H PRN PRN Reason: Nausea Stop: 10/05/24 17:04 Last Admin: 09/05/24 20:18 Dose: 4 mg Documented By: [id number] Prednisone (Prednisone 20 Mg Tab) 40 mg PO DAILY ADELE Stop: 09/08/24 08:59 Last Admin: 09/06/24 08:52 Dose: 40 mg Documented By: MANJIT Discontinued Medications Aspirin (Aspirin 81 Mg Chew) 324 mg PO NOW STA Stop: 09/05/24 14:37 Last Admin: 09/05/24 14:56 Dose: Not Given Documented By: PABLO Ketorolac Tromethamine (Ketorolac Tromethamine 15 Mg/Ml Vial) 15 mg IV NOW ONE Stop: 09/05/24 15:09 Last Admin: 09/05/24 15:16 Dose: 15 mg Documented By: PABLO Ketorolac Tromethamine (Ketorolac Tromethamine 15 Mg/Ml Vial) 15 mg IV NOW ONE Stop: 09/06/24 11:12 Last Admin: 09/06/24 11:44 Dose: 15 mg Documented By: MANJIT Tramadol HCl (Tramadol Hcl 50 Mg Tablet) 50 mg PO NOW STA Stop: 09/05/24 21:17 Last Admin: 09/05/24 21:29 Dose: 50 mg Documented By: CHAPINCITO Discharge Plan Visit Data Chief Complaint: Respiratory Problems Stated Complaint: Chest tight, asthma ED Provider: Tj Wynn Discharge Problem: Elevated troponin, COPD (chronic obstructive pulmonary disease), Chest pain Patient Disposition: Admitted As Inpatient Discharge Instructions Interventions: ED Discharge Assessment Last Done: 09/05/24 16:23 Discharge Problem: COPD (chronic obstructive pulmonary disease) Qualifiers: COPD type: unspecified COPD Qualified Code(s): J44.9 - Chronic obstructive pulmonary disease, unspecified Chest pain Qualifiers: Chest pain type: unspecified Qualified Code(s): R07.9 - Chest pain, unspecified
[2024-09-05 12:48] LABS: Basophils # (auto) 0.02 K/uL (0.00-0.20); Basophils % (auto) 0.2 %; Eosinophils # (auto) 0.11 K/uL (0.00-0.50); Hematocrit (blood only) 44.9 % (37.0-47.0); Hemoglobin 15.7 g/dl (12.0-16.0); Immature Granulocytes # (auto) 0.04 K/uL (0.01-0.20); Immature Granulocytes % (auto) 0.4 %; Lymphocytes # (auto) 0.55 K/uL (1.20-3.40); Lymphocytes % (auto) 4.8 %; Mean Corpuscular Hemoglobin 30.4 pg (25.0-34.0); Mean Platelet Volume 10.6 fL (9.4-12.4); Monocytes # (auto) 0.98 K/uL (0.11-0.59); Monocytes % (auto) 8.6 %; Neutrophils # (auto) 9.65 K/uL (1.40-6.50); Platelet Count 330 K/uL (130-400); RDW Coefficient of Variation 13.4 % (11.5-14.5); Red Blood Count 5.16 M/uL (4.20-5.40); White Blood Count 11.35 K/ul (4.8-10.8)
--- NOTE | 2024-09-05 12:53 | XRay Report ---
XR chest 1V portable CLINICAL HISTORY: chest pain COMPARISON STUDY: 08/30/2024 FINDINGS: Heart size and pulmonary vasculature are normal. No effusion, consolidation, or pneumothora x. IMPRESSION: No acute findings. ACT 112: Negative or not required by law. Electronically signed by: Tone Menendez M.D. 09/05/2024 12:52 PM
[2024-09-05 13:02] LABS: Albumin Level 4.4 gm/dl (3.4-5.0); BUN Creatinine Ratio 17.6 (10-20); Bilirubin Direct 0.1 mg/dl (0-0.2); Bilirubin,Total 0.6 mg/dl (0.2-1.0); Creatinine Clr Calc Pharmacy 77.2 ml/min; Magnesium 2.1 mg/dl (1.7-2.4); Potassium 3.6 mmol/L (3.5-5.1); Total Protein 7.6 gm/dl (6.0-8.3)
[2024-09-05 13:07] LABS: Troponin I High Sensitivity 19.6 pg/ml (0-14)
[2024-09-05 13:16] LABS: Influenza A virus by PCR Negative (Neg); Influenza B virus by PCR Negative (Neg); RSV by PCR Negative (Neg); SARS CoV2 RNA(COVID-19) Ceph NEGATIVE (Negative)
--- NOTE | 2024-09-05 14:44 | Electrocardiogram Report ---
Test Reason : Blood Pressure : */* mmHG Vent. Rate : 115 BPM Atrial Rate : 115 BPM P-R Int : 128 ms QRS Dur : 74 ms QT Int : 324 ms P-R-T Axes : 32 63 72 degrees QTcB Int : 448 ms Sinus tachycardia Nonspecific ST abnormality Abnormal ECG When compared with ECG of 30-Aug-2024 03:46, No significant change was found Confirmed by Thom Renee ([id number]) on 09/05/2024 2:43:58 PM Referred By: Confirmed By: Thom Renee
--- NOTE | 2024-09-05 14:47 | History & Physical Report ---
Date of Service September 05, 2024 Assessment & Plan (1) COPD exacerbation: Plan: Patient is 49 year old female with PMH asthma, COPD, HTN, past tobacco use, chronic back pain presented to ER with c/o SOB and CP x 1 day. Recent hospitalization here at [facility] 08/30/2024-09/03/2024 for COPD exacerbation, acute hypoxic respiratory failure and had negative respiratory viral panel and treated with steroids, nebs, azithromycin. Today in ER afebrile, 92% on room air up to 94% on 1.5 L via nasal cannula Negative SARS-CoV-2, influenza, RSV PCR CXR: No acute infiltrate WBC: 11 Patient reports was having shortness of breath and chest tightness today. She reports significant improvement after neb given by EMS and denies any shortness of breath or chest tightness. Patient also given Solu-Medrol by EMS Start prednisone taper Xopenex, Atrovent nebs, budesonide, formoterol nebs Pt reports unable to get meds filled secondary to financial constraint CBC in am (2) Nausea vomiting and diarrhea: Plan: Nausea, vomiting, diarrhea x 1 day LFTs WNL Denies hematemesis, melena, hematochezia No vomiting or diarrhea while in ER and denying abdominal pain Obtain stool cultures, C. difficile Clear liquid diet (3) Elevated troponin: Plan: Troponin: 19 Given 324mg aspirin by EMS R/O ACS After neb treatment reports resolution of chest tightness Denies any recurrent chest tightness in ER Repeat EKG in am Will trend troponin Echo Lipid panel in am Aspirin, atorvastatin Repeat EKG for CP If troponin uptrending consider cardiology consult (4) Hypertension: Plan: BPs variable in ER from 127/95 up to 169/136. Plan to restart home HCTZ Monitor BP, may need to further adjust DVT Prophylaxis Lovenox SQ Admit telemetry Full Code as per discussion with pt Follows with Fannie Garcia PA-C for routine care Pt was seen and care coordinated with Dr Carrington. See addendum I spent a total of 70 minutes reviewing notes, outpatient records, labs, medication, coordinating, documenting and providing care for this patient excluding time spent in the performance of separately billed services and excluding time spent by another provider/QHP. History of Present Illness Chief Complaint: SOB, CP Primary Care Provider: Fannie Garcia PA-C Patient is 49 year old female with PMH asthma, COPD, HTN, past tobacco use, chronic back pain presented to ER with c/o SOB and CP x 1 day. Per inpatient chart review patient with history recent hospitalization here at [facility] 08/30/2024- 09/03/2024 for COPD exacerbation, acute hypoxic respiratory failure and had negative respiratory viral panel. She was treated with nebulizers, Mucinex, steroids, azithromycin. BPs were initially elevated and was started on losartan and BPs on the soft side so losartan was discontinued and patient was discharged home on HCTZ. Patient states she has been using her albuterol and inhaler that she was sent home with. States last night started with SOB and chest tightness again that felt similar to her previous symptoms and hospitalization. Reports EMS gave four baby aspirin, neb and Solumedrol and patient reports that her chest tightness and SOB greatly improved. States now just feeling some anterior chest and epigastric tenderness with palpation only. States started with nausea, vomiting and diarrhea last night. States numerous episodes of vomiting and profuse watery diarrhea. No further vomiting or diarrhea since in ER today. States now feeling hungry and denies other abdominal pain. No further chest pain while in ER. Previously on inhalers but reports insurance not covering so hasn't used anything other than albuterol. She reports was given inhaler upon discharge to have until can get financial situation figured out. She was given Rx for HCTZ but states didn't get filled secondary to financial issues. Denies fever/chills, diaphoresis, hematemesis, hematochezia, melena, TIAN, dizziness, syncope, vision c hanges, neck pain, orthopnea, palpitations, hemoptysis, sore throat, choking, rhinorrhea, paresthesias, weakness, extremity edema, rashes, urinary symptoms. Allergies Allergy/AdvReac Type Severity Reaction Status Date / Time acetaminophen [From Tylenol] Allergy Mild Gastrointestinal Unverified 08/30/24 04:29 Upset Home Medications Medication Instructions Recorded Confirmed Type albuterol sulfate 90 mcg/actuation 2 puff inhalation Q6H PRN 04/21/21 09/05/24 Rx aerosol inhaler Shortness Of Breath Or Wheezing #1 inhaler diclofenac sodium 1 % topical gel 2 g topical 4XD PRN Pain 08/30/24 09/05/24 History fluticasone 500 mcg-salmeterol 50 1 inh inhalation 2XD 08/30/24 09/05/24 History mcg/dose blistr powdr for inhalation tiotropium bromide 1.25 2 inh inhalation 1XD 08/30/24 09/05/24 History mcg/actuation mist for inhalation (Spiriva Respimat) atorvastatin 20 mg tablet 20 mg PO 1XD 30 days #30 tabs 09/03/24 09/05/24 Rx hydrochlorothiazide 25 mg tablet 25 mg PO DAILY #30 tabs 09/03/24 09/05/24 Rx Past Med/Surg History Problem List (Updated 09/05/24 @ 20:14 by Amanda Mejia PA-C) Nausea vomiting and diarrhea Hypertension, uncontrolled Hypoxia (Acute) COPD exacerbation (Acute) Recurrent non-productive cough Tobacco abuse Acute asthma exacerbation Acute hypoxemic respiratory failure Syncope (Acute) Elevated troponin (Acute) Acute respiratory failure with hypoxia (Acute) Asthma with COPD with exacerbation COPD (chronic obstructive pulmonary disease) (Acute) Asthma Medical History Arthritis Surgical History Tubal ligation status Previous section S/P cholecystectomy Family History Father Heart disease Hypertension Social History Smoking Status: Former smoker Tobacco Type: Cigarettes Cigarettes Per Day: 3; Second Hand Exposure: Yes; Do You Dip or Chew Tobacco: No; Tobacco Cessation Education Requested by Patient: No Hx Alcohol Use: No Hx Substance Use: No Preferred Language: Polish Communication Ability: Effective Projection Technician Required: No Beliefs That Will Affect Care: None Current Living Situation: Spouse Current Living Situation Comment: friend Other Information That Helps Us Care for You: No Feels Safe at Home: Yes Safety Concerns: Feels Safe At This Time Assistive Devices: Cane Review of Systems Review of Systems: All systems reviewed & are unremarkable except as noted in HPI & below Physical Exam Physical Exam: General: no acute distress, resting comfortably in bed, obese female Head: normocephalic, atraumatic Eyes: conjunctiva non-injected, anicteric ENT: normal inspection external ears, nose, mucous membranes moist Neck: supple, trachea midline Lungs: clear, no respiratory distress, no wheezing/rhonchi/rales CV: tachycardia, regular rhythm, rate 112, no murmur, no pretibial edema Chest wall: +tenderness to palpation sternal region Abd: normal BS, soft, +tenderness to palpation epigastric region only Ext: no cyanosis, no calf tenderness Neuro: A&O x 3, no focal deficits noted, normal affect Skin: warm, dry Results & Data Results & Data Vital Signs (Past 12 Hours) Vital Signs Temp Pulse Resp BP Pulse Ox O2 Del Method O2 Flow Rate 09/05/24 13:35 93 1.5 09/05/24 12:45 112 H 17 133/82 95 Nasal Cannula 1.5 09/05/24 12:12 119 H 09/05/24 11:29 36.7 C 123 H 30 H 127/95 92 Room Air Laboratory Results Short CBC 09/05/24 Range/Units 11:56 WBC 11.35 H (4.8-10.8) K/ul Hgb 15.7 (12.0-16.0) g/dl Hct 44.9 (37.0-47.0) % Plt Count 330 (130-400) K/uL BMP 09/05/24 11:56 Sodium 135 L Potassium 3.6 Chloride 97 L Carbon Dioxide 26 BUN 16 Creatinine 0.91 Glucose 156 H Calcium 9.0 Liver Function 09/05/24 Range/Units 11:56 Total Bilirubin 0.6 (0.2-1.0) mg/dl Direct Bilirubin 0.1 (0-0.2) mg/dl AST 22 (13-39) U/L ALT 32 (7-52) U/L Alkaline Phosphatase 41 (34-104) U/L Albumin 4.4 (3.4-5.0) gm/dl Diagnostic Findings Chest X-Ray 09/05/24 11:54 XR chest 1V portable CLINICAL HISTORY: chest pain COMPARISON STUDY: 08/30/2024 FINDINGS: Heart size and pulmonary vasculature are normal. No effusion, consolidation, or pneumothorax. IMPRESSION: No acute findings. ACT 112: Negative or not required by law. Electronically signed by: Tone Menendez M.D. 09/05/2024 12:52 PM ECG Additional Comments: EKG sinus tachycardia, rate 115, nonspecific ST changes per my interpretation Supervising Physician Co-Signing Physician Notes Patient seen and examined independently. She presents with increasing shortness of breath, nausea, vomiting and diarrhea since her discharge. She reports that she has not been able to take her medication due to financial issues. Plan to treat with budesonide, formoterol nebs, [id number] DuoNeb and tapering dose of prednisone. I have reviewed the advanced practitioner's documentation, and I agree with, and take responsibility for the plan of care I spent a total of 20 minutes coordinating, documenting, and providing care for this patient excluding time spent in the performance of separately billed services. All of the aforementioned completed while collaborating with the assigned advanced practitioner for a full treatment plan
[2024-09-05] MEDS: ASPIRIN 81 MG CHEW PO STA (14:54)
[2024-09-05] MEDS: KETOROLAC TROMETHAMINE 15 MG/ML VIAL IV ONE (15:16)
[2024-09-05] MEDS ORDERED: POLYETHYLENE (MIRALAX) 17 GM PACK PO PRN (17:05)
[2024-09-05] MEDS ORDERED: IBUPROFEN 100 MG/5 ML UDC PO PRN (17:19)
[2024-09-05] MEDS: ENOXAPARIN INJ 40 MG/0.4 ML SYR SQ SCH (18:08)
[2024-09-05] MEDS: hydroCHLOROthiazide 25 MG TAB PO SCH (18:09)
--- OUTSIDE RECORDS SUMMARY | 2024-09-05 19:27 | External Medical Summary | Summary of Care ---
Author Name Unknown Organization [facility] Address [address] [facility] [address] Phone [phone] Care Team Providers Care Living Nurse Name Role Phone Fannie Garcia PA-C Primary Care Provider [phone] [phone] Reason for Visit * Reason Onset Date Comments Hospital Follow-Up 09/04/2024 [facility] ([facility]) Encounter Details Date Type Department Care Team (Late st Contact Info) Description 09/04/2024 Telephone [facility] [address] [facility] [place] [phone] Vani Pathak RN Hospital Follow-Up (VANE ([facility])) Allergies Active Allergy Reactions Criticality Noted Date Comments Acetaminophen 03/22/2016 (Rash? From gel caps.) Upset stomach, vomiting documented as of this encounter (statuses as of 09/04/2024) Medications Sulindac 200 MG Oral TabletIndications:T humb pain, unspecified laterality Take 1 Tablet by mouth in the morning and 1 Tablet before bedtime. With food. 60 Tablet 10/24/19 23 Active Neomycin-Polymyxin- Dexameth 3.5-88607-6.1 Ophthalmic Ointment (Maxitrol)Indicatio ns:Abrasion of ear canal, [...] rhinitis, unspecified seasonality, unspecified trigger Administer 1 [place] into nostril in the morning and 1 [place] before bedtime. 30 mL 12 10/24/19 23 Active Saline Nasal [place] 0.65 % Nasal Solution ([place])Indications: Dry nose Administer 1 [place] into nostril as needed for Congestion. 30 [...] 54 g 3 08/27/19 24 Active Tiotropium [place] Monohydrate 1.25 MCG/ACT Inhalation Aerosol Solution (Spiriva Respimat)Indication s:COPD, moderate (HCC) Inhale by mouth 2 Inhalation Dosing Unit daily . 12 g 08/27/19 24 Active Clobetasol Propionate 0.05 % External Cream (Temovate)Indicatio ns:Plaque psoriasis Apply topically to affected area 2 times a day. To affected area for up to two weeks. (Flare) 60 g 1 09/13/19 24 Active Triamcinolone Acetonide 0.1 % External Cream (Aristocort)Indicat ions:Plaque psoriasis Apply topically to affected area 3 times a day. To affected area elbows and hands when controlled 453 g 09/13/19 24 Active Albuterol Sulfate (2.5 MG/3ML) [...] NEEDED FOR PAIN to hands 400 g 1 09/13/19 24 Active Atorvastatin Calcium 20 MG Oral Tablet (Lipitor)Indication s:Hyperlipidemia, unspecified hyperlipidemia type Take 1 Tablet by mouth in the morning. 90 Tablet 12/05/19 24 Active documented as of this encounter (statuses as of 09/04/2024) Active Problems Problem Noted Date Diagnosed Date HTN, goal below 140/90 09/13/2023 Sleep disturbance 08/16/2016 Chronic bilateral low back pain without sciatica 04/11/2016 Moderate persistent asthma without complication 12/08/2015 Obesity, Class I, BMI 30.0-34.9 (see actual BMI) 09/27/2015 Overview (09/27/2015): bmi= 37.31 09/27/15 Tobacco use disorder 08/26/2015 COPD, moderate 10/04/2014 Asthma, moderate persistent Allergic rhinitis documented as of this encounter (statuses as of 09/04/2024) Resolved Problems Problem Noted Date Diagnosed Date [...] as of this encounter (statuses as of 09/04/2024) Immunizations Name Administration Dates Next Due TDAP [...] on file documented as of this encounter Miscellaneous Notes * Telephone Encounter - Vani Pathak RN - 09/04/2024 2:44 PM EST Transitions of Care Note Reason for Referral:Recent Admission Phone visit for follow up: VANE #1 Admitted to: [facility], Date: 08/30/2024 Discharged to: Home, Date: 09/03/2024 Diagnosis driving hospitalization: Acute Hypoxemic Respiratory Failure, Asthma with COPD with exacerbation Attempted Phone Call First Attempt Call Outcome Unable to Leave Message VM not set up documented in this encounter Plan of Treatment Upcoming Encounters Date Type Department Care Team (Late st Contact Info) Description 10/01/2024 11:40 AM EST [facility] [address] [place] [phone] Fannie Garcia PA-C [address] [place] [id number] Health Maintenance Due Date Last Done Comments HIV Screening 1989 Albumin/Creatinine Ratio 1992 Alpha-1 Antitrypsin 1992 Hepatitis C Screening 1992 Hepatitis B Vaccine (1 of 3 - 19+ 3-dose series) 1993 Pneumococcal Vaccine: 50+ Years (1 of 2 - PCV) 1993 HPV/Co-Test 2004 DISCUSS TOBACCO CESSATION (REFER TO SMARTSET #1901) 09/27/2016 09/27/2015 Cologuard 2019 Colonoscopy 2019 Colorectal [...] Not on filedocumented as of this encounter Care Teams Living Nurse Relationship Specialty Start Date End Date Fannie Garcia PA-C PCP - General Physician Carcass Trimmer 10/20/22 documented as of this encounter
--- OUTSIDE RECORDS SUMMARY | 2024-09-05 19:27 | External Medical Summary | Summary of Care ---
Author Name Unknown Organization [facility] Address [address] [facility] [facility] [address] Phone [phone] Care Team Providers Care Brass Reclaimer Name Role Phone Fannie Garcia PA-C Primary Care Provider [phone] [phone] Reason for Visit * Reason Onset Date Comments Health Maintenance 08/29/2024 Encounter Details Date Type Department Care Team (Late st Contact Info) Description [facility] [address] [phone] Fannie Garcia PA-C [address] [facility] [place] [address] Health Maintenance Allergies Active Allergy Reactions Criticality Noted Date Comments Acetaminophen 03/22/2016 (Rash? From gel caps.) Upset stomach, vomiting documented as of this encounter (statuses as of 08/29/2024) Medications Sulindac 200 MG Oral TabletIndications:T humb pain, unspecified laterality Take 1 Tablet by mouth in the morning and 1 Tablet before bedtime. With food. 60 Tablet 10/24/19 23 Active Neomycin-Polymyxin- Dexameth 3.5-50451-1.1 Ophthalmic Ointment (Maxitrol)Indicatio ns:Abrasion of ear canal, [...] rhinitis, unspecified seasonality, unspecified trigger Administer 1 [place] into nostril in the morning and 1 [place] before bedtime. 30 mL 12 10/24/19 23 Active Saline Nasal [place] 0.65 % Nasal Solution ([place])Indications: Dry nose Administer 1 [place] into nostril as needed for Congestion. 30 [...] Strength: 108 (90 BASE) MCG/ACT 54 g 08/27/19 24 Active Tiotropium [place] Monohydrate 1.25 MCG/ACT Inhalation Aerosol Solution (Spiriva [...] as of this encounter (statuses as of 08/29/2024) Active Problems Problem Noted Date Diagnosed Date HTN, goal below 140/90 09/13/2023 Sleep disturbance 08/16/2016 Chronic bilateral low back pain without sciatica 04/11/2016 Moderate persistent asthma without complication 12/08/2015 Obesity, Class I, BMI 30.0-34.9 (see actual BMI) 09/27/2015 Overview (09/27/2015): bmi= 37.31 09/27/15 Tobacco use disorder 08/26/2015 COPD, moderate 10/04/2014 Asthma, moderate persistent Allergic rhinitis documented as of this encounter (statuses as of 08/29/2024) Resolved Problems Problem Noted Date Diagnosed Date [...] as of this encounter (statuses as of 08/29/2024) Immunizations Name Administration Dates Next Due TDAP [...] encounter Miscellaneous Notes * Telephone Encounter - [place] Chiu LPN - 08/29/2024 11:13 AM EST Care Gaps Comprehensive Care Outreach Last Office/Telemedicine Visit: Visit date not found (in office), Visit date not found (telemedicine) Next Office Visit: Visit date not found Hemoglobin AIC Results: No results found for: "HEMOGLOBIN A1C" BP Readings from Last 1 Encounters: 09/13/23 116/84 Reviewed Health Maintenance below: Health Maintenance Topic Date Due HIV Screening Never done Albumin/Creatinine Ratio Never done Alpha-1 Antitrypsin Never done Hepatitis C Screening Never done Hepatitis B Vaccine (1 of 3 - 19+ 3-dose series) Never done Pneumococcal Vaccine: 50+ Years (1 of 2 - PCV) Never done DISCUSS TOBACCO CESSATION (REFER TO SMARTSET #3291) 09/27/2016 Colorectal Cancer Screening Never done Depression Screening 06/10/2019 Cervical Cancer Screening 03/21/2021 GFR 10/21/2022 Mammogram 11/03/2022 Ov year feb Labs Colon Pap mamm Care Gap Outreach Action Taken: Unable to reach No vm documented in this encounter Plan of Treatment Health Maintenance Due Date Last Done Comments [...] filedocumented as of this encounter Care Teams Brass Reclaimer Relationship Specialty Start Date End Date Fannie Garcia PA-C PCP - General Physician Vacuum Furnace Operator 10/20/22 documented as of this encounter
[2024-09-05] MEDS: IPRATROPIUM BROMIDE NEB SOLN 0.02% 0.5MG/2.5ML VIAL NEB SCH (19:35)
[2024-09-05] MEDS: LEVALBUTEROL 1.25 MG/3 ML NEB NEB SCH (19:35)
[2024-09-05] MEDS: BUDESONIDE 0.5 MG/2 ML VIAL (PULMICORT) NEB SCH (19:35)
[2024-09-05] MEDS: FORMOTEROL 20 MCG/2 ML VIAL NEB SCH (19:35)
[2024-09-05] MEDS: ATORVASTATIN 40 MG TAB PO SCH (20:13)
[2024-09-05] MEDS: ONDANSETRON INJ 2 MG/ML 2 ML VIAL IV PRN (20:18)
[2024-09-05] MEDS: ASPIRIN 81 MG ECTAB PO SCH (21:17)
[2024-09-05] MEDS: ALUMINUM/MAGNESIUM/SIMETH (MAALOX MAX) 30 ML UDC PO PRN (21:29)
[2024-09-05] MEDS: traMADol HCL 50 MG TABLET PO STA (21:29)
--- OUTSIDE RECORDS SUMMARY | 2024-09-06 04:22 | External Medical Summary | Summary of Care ---
Author Name Unknown Organization [facility] Address [address] [facility] [address] Phone [phone] Care Team Providers Care Auto Brake Mechanic Name Role Phone Fannie Garcia PA-C Primary Care Provider [phone] [phone] Reason for Visit * Reason Onset Date Comments Hospital Follow-Up 09/04/2024 [facility] ([facility]) Encounter Details Date Type Department Care Team (Late st Contact Info) Description 09/04/2024 Telephone [facility] [place] [facility] [address] [facility] [place] [phone] Vani Pathak RN Hospital Follow-Up ([facility] ([facility])) Allergies Active Allergy Reactions Criticality Noted Date Comments Acetaminophen 03/22/2016 (Rash? From gel caps.) Upset stomach, vomiting documented as of this encounter (statuses as of 09/05/2024) Medications Sulindac 200 MG Oral TabletIndications:T humb pain, unspecified laterality Take 1 Tablet by mouth in the morning and 1 Tablet before bedtime. With food. 60 Tablet 10/24/19 23 Active Neomycin-Polymyxin- Dexameth 3.5-01082-9.1 Ophthalmic Ointment (Maxitrol)Indicatio ns:Abrasion of ear canal, [...] rhinitis, unspecified seasonality, unspecified trigger Administer 1 [place] into nostril in the morning and 1 [place] before bedtime. 30 mL 12 10/24/19 23 Active Saline Nasal [place] 0.65 % Nasal Solution ([place])Indications: Dry nose Administer 1 [place] into nostril as needed for Congestion. 30 [...] 54 g 3 08/27/19 24 Active Tiotropium [place] Monohydrate 1.25 MCG/ACT Inhalation Aerosol Solution (Spiriva [...] as of this encounter (statuses as of 09/05/2024) Active Problems Problem Noted Date Diagnosed Date HTN, goal below 140/90 09/13/2023 Sleep disturbance 08/16/2016 Chronic bilateral low back pain without sciatica 04/11/2016 Moderate persistent asthma without complication 12/08/2015 Obesity, Class I, BMI 30.0-34.9 (see actual BMI) 09/27/2015 Overview (09/27/2015): bmi= 37.31 09/27/15 Tobacco use disorder 08/26/2015 COPD, moderate 10/04/2014 Asthma, moderate persistent Allergic rhinitis documented as of this encounter (statuses as of 09/05/2024) Resolved Problems Problem Noted Date Diagnosed Date [...] as of this encounter (statuses as of 09/05/2024) Immunizations Name Administration Dates Next Due TD - Tetanus/Diptheria (ADULT) 08/06/1998 TDAP (age 10 and older)(Boostrix) 06/20/2017 06/20/2027 [...] for follow up: VANE #1 Admitted to: [facility], Date: 08/30/2024 Discharged to: Home, Date: 09/03/2024 Diagnosis driving hospitalization: Acute Hypoxemic Respiratory Failure, Asthma with COPD with exacerbation Attempted Phone Call First Attempt Call Outcome Unable to Leave Message VM not set up Transitions of Care Note Reason for Referral:Recent Admission Phone visit for follow up: VANE #2 Admitted to: [facility], Date: 08/30/2024 Discharged to: Home, Date: 09/03/2024 Diagnosis driving hospitalization: Acute Hypoxemic Respiratory Failure, Asthma with COPD with exacerbation Attempted Phone Call Second Attempt Call Outcome Unable to Leave Message VM not set up documented in this encounter Plan of Treatment Upcoming Encounters Date Type Department Care Team (Late st Contact Info) Description 10/01/2024 11:40 AM EST Office Visit [facility] [place] [address] [place] [phone] Fannie Garcia PA-C [address] [place] [phone] Health Maintenance Due Date Last Done Comments HIV Screening 1989 Albumin/Creatinine Ratio 1992 Alpha-1 Antitrypsin 1992 Hepatitis C Screening 1992 Hepatitis B Vaccine (1 of 3 - 19+ 3-dose series) 1993 Pneumococcal Vaccine: 50+ Years (1 of 2 - PCV) 1993 HPV/Co-Test 2004 DISCUSS TOBACCO CESSATION (REFER TO SMARTSET #2331) 09/27/2016 09/27/2015 Cologuard 2019 Colonoscopy 2019 Colorectal Cancer Screening 2019 Fecal Occult Blood Test 2019 Sigmoidoscopy 2019 Depression Screening 06/10/2019 06/10/2018, 12/19/19 18 Cervical Cancer Screening 03/21/2021 Pap Smear 03/21/2021 03/21/2018 GFR 10/21/2022 10/21/2021, 0810/2017, 10/02/2017, Additional history exists Mammogram 11/03/2022 11/03/2021, 08/07, 04/17/2016, Additional history exists COVID-19 Vaccine ( - season) 2024 Influenza Vaccine (FLU shot) (#1) [...] filedocumented as of this encounter Care Teams Auto Brake Mechanic Relationship Specialty Start Date End Date Fannie Garcia PA-C PCP - General Physician Warehouse Production Worker 10/20/22 documented as of this encounter
[2024-09-06 06:44] LABS: Basophils # (auto) 0.01 K/uL (0.00-0.20); Basophils % (auto) 0.1 %; Hematocrit (blood only) 40.8 % (37.0-47.0); Hemoglobin 14.2 g/dl (12.0-16.0); Immature Granulocytes # (auto) 0.07 K/uL (0.01-0.20); Immature Granulocytes % (auto) 0.6 %; Lymphocytes # (auto) 1.38 K/uL (1.20-3.40); Lymphocytes % (auto) 11.5 %; Mean Corpuscular Hemoglobin 30.5 pg (25.0-34.0); Mean Corpuscular Hgb Conc 34.8 g/dL (32.0-36.0); Mean Corpuscular Volume 87.6 fL (80.0-100.0); Mean Platelet Volume 10.3 fL (9.4-12.4); Monocytes # (auto) 0.84 K/uL (0.11-0.59); Neutrophils # (auto) 9.71 K/uL (1.40-6.50); Neutrophils % (auto) 80.8 %; Platelet Count 344 K/uL (130-400); RDW Coefficient of Variation 13.5 % (11.5-14.5); RDW Standard Deviation 43.6 fL (36.4-46.3); Red Blood Count 4.66 M/uL (4.20-5.40); White Blood Count 12.01 K/ul (4.8-10.8)
[2024-09-06 06:59] LABS: BUN Creatinine Ratio 19.3 (10-20); Calcium 8.9 mg/dl (8.6-10.3); Chol HDL Ratio 3.7 (0-5); Creatinine Clr Calc Pharmacy 80.4 ml/min; Potassium 3.8 mmol/L (3.5-5.1)
[2024-09-06 07:11] LABS: Troponin I High Sensitivity 73.7 pg/ml (0-14)
--- NOTE | 2024-09-06 07:22 | Electrocardiogram Report ---
Test Reason : Blood Pressure : */* mmHG Vent. Rate : 95 BPM Atrial Rate : 95 BPM P-R Int : 150 ms QRS Dur : 80 ms QT Int : 376 ms P-R-T Axes : 65 61 84 degrees QTcB Int : 472 ms Normal sinus rhythm Normal ECG When compared with ECG of 05-Sep-2024 11:34, No significant change was found Confirmed by Liam Cabrera ([id number]) on 09/06/2024 7:21:27 AM Referred By: REFERRED SELF Confirmed By: Liam Cabrera
[2024-09-06] MEDS: predniSONE 20 MG TAB PO SCH (08:52)
--- NOTE | 2024-09-06 09:28 | Hospitalist Progress Note ---
<Statement entered by Lukas Vick DO - 09/06/24 12:20> I have seen and examined the patient and have discussed the case with the advance practice provider. I have reviewed the advanced practitioner's documentation, and I agree with, and take responsibility for that plan of care. Patient reports that almost as soon as she got home she started to decompensate from a respiratory standpoint. Raises a question of whether there is any environmental factors contributing to her symptoms. May need to consider pulmonary consultation versus outpatient follow-up with pul monary for difficult to control COPD/asthma I spent a total of 20 minutes coordinating, documenting, and providing care for this patient excluding time spent by another provider/QHP. Date of Service September 06, 2024 Assessment & Plan (1) COPD exacerbation: (2) Nausea vomiting and diarrhea: (3) Elevated troponin: (4) Hypertension: (5) Hypoxia: Plan Patient is 49 year old female with PMH asthma, COPD, HTN, past tobacco use, chronic back pain presented to ER with c/o SOB and CP x 1 day. Recent hospitalization here at [facility] 08/30/2024-09/03/2024 for COPD exacerbation, acute hypoxic respiratory failure and had negative respiratory viral panel and treated with steroids, nebs, azithromycin. Her sx are improving Her chest tightness is still present, but is reproducible, she feels like from coughing/vomiting yesterday N/V/D have since resolved Her trops went from 19 -->74 and has remained flat, ECG NSR w/o ST changes Echo currently pending, suspect elevated trop in setting of demand ischemia from hypoxia A1C 6.3 on 08/30 and lipid panel stable, consult shank stitcher for pre DM counseling Continue Xopenex, Atrovent nebs, budesonide, formoterol nebs Continue prednisone, wean oxygen as able, not on home oxygen continue daily ASA, statin, HCTZ pt reports in ability to afford medications, she has no car, and currently is so far behind on her rent that she can't possibly afford her medications she reports having albuterol inhaler and Fluticasone-Salmetrol at home will discuss with CM options regarding her medications DVT ppx: Lovenox FULL CODE PCP: Fannie Garcia Dispo: admitted to med/tele, advance diet, will down grade to medical, continue current treatment, suspect ready to d/c in 1-2 days I spent a total of 46 minutes coordinating, documenting and providing care for this patient excluding time spent in the performance of separately billed serv ices or time spent by another provider/QHP. Admission and Anticipated Discharge Date Admission Date: September 05, 2024 Subjective Pt seen in 284-2. F/U COPD Exac. She reports continued SOB, but feels it has improved slightly. He continues to have a dry cough which is chronic for her. She denies f/c/s, chest pain, sob, n/v/d. She reports occasional wheezing. She states she is unable to afford her HCTZ because currently she is so behind on rent they can't even pay that. She reports strong FH of CAD in her father who required bypass surgery in his 50s. She also has a strong hx of T2DM. Review of Systems Review of Systems: All systems reviewed & are unremarkable except as noted in HPI & below Physical Exam Physical Exam: Gen: WD/WN, obese, F, NAD, A&O x3 HEENT: Normocephalic, atraumatic, conjunctivae moist, sclerae anicteric, mucous membranes moist, edentulous Lung: Clear to Auscultation bilaterally with diminished BS throughout, no wheezes/rales/rhonchi Heart: Regular rate, regular rhythm, no murmurs, rubs, or gallops Abdomen: Soft, NT, ND +BS x 4 Extremities: No edema Skin: Warm, no rash, negative turgor. Results & Data Results & Data Vital Signs (Past 12 Hours) Vital Signs Temp Pulse Pulse Resp BP BP Pulse Ox 09/06/24 09:07 09/06/24 08:14 98 H 18 94 09/06/24 07:58 36.7 C 90 20 124/82 93 09/06/24 07:20 91 H 09/06/24 03:56 36.9 C 94 H 16 116/76 96 09/06/24 00:45 93 09/06/24 00:32 93 H 16 81 L 09/05/24 23:18 37 C 93 H 18 139/75 94 09/05/24 23:15 09/05/24 21:57 100 H 09/05/24 21:32 93 O2 Del Method O2 Flow Rate 09/06/24 09:07 Room Air 09/06/24 08:14 Nasal Cannula 2 09/06/24 07:58 Nasal Cannula 2 09/06/24 07:20 09/06/24 03:56 Nasal Cannula 2 09/06/24 00:45 2 09/06/24 00:32 Room Air 09/05/24 23:18 Nasal Cannula 2 09/05/24 23:15 Room Air 09/05/24 21:57 09/05/24 21:32 Room Air Laboratory Results I have independently reviewed and interpreted patient's cbc, cmp, trop,lipid panel Medications Administered Current Inpatient Medications Al Hydrox/Mg Hydrox/Simethicone (Aluminum/Magnesium/Simeth (Maalox Max) 30 Ml Udc) 30 ml PO Q6H PRN PRN Reason: Heartburn Stop: 10/05/24 20:35 Last Admin: 09/05/24 21:29 Dose: 30 ml Aspirin (Aspirin 81 Mg Ectab) 81 mg PO Q[facility] [place] Stop: 10/05/24 18:59 Last Admin: 09/06/24 08:52 Dose: 81 mg Atorvastatin Calcium (Atorvastatin 40 Mg Tab) 40 mg PO QAOK [facility] [place] Stop: 10/05/24 18:59 Last Admin: 09/06/24 08:52 Dose: 40 mg Budesonide (Budesonide 0.5 Mg/2 Ml Vial (Pulmicort)) 0.5 mg NEB BIDR [facility] Stop: 10/05/24 18:59 Last Admin: 09/06/24 08:13 Dose: 0.5 mg Enoxaparin Sodium (Enoxaparin Inj 40 Mg/0.4 Ml Syr) 40 mg SQ Q24H [facility] Stop: 10/05/24 17:59 Last Admin: 09/05/24 18:08 Dose: 40 mg Formoterol Fumarate (Formoterol 20 Mcg/2 Ml Vial) 20 mcg NEB BIDR [facility] Stop: 10/05/24 18:59 Last Admin: 09/06/24 08:13 Dose: 20 mcg Hydrochlorothiazide (Hydrochlorothiazide 25 Mg Tab) 25 mg PO DAILY [facility] Stop: 10/05/24 17:59 Last Admin: 09/06/24 08:52 Dose: 25 mg Ipratropium [place] (Ipratropium [place] Neb Soln 0.02% 0.5mg/2.5ml Vial) 0.5 mg NEB Q6R [facility] Stop: 10/05/24 18:59 Last Admin: 09/06/24 08:12 Dose: Not Given Levalbuterol HCl (Levalbuterol 1.25 Mg/3 Ml Neb) 1.25 mg NEB Q6H [place] Stop: 10/05/24 17:04 Last Admin: 09/06/24 08:12 Dose: Not Given Ondansetron HCl (Ondansetron Inj 2 Mg/Ml 2 Ml Vial) 4 mg IV Q6H PRN PRN Reason: Nausea Stop: 10/05/24 17:04 Last Admin: 09/05/24 20:18 Dose: 4 mg Polyethylene Glycol (Polyethylene (Miralax) 17 Gm Pack) 17 gm PO DAILY PRN PRN Reason: Constipation Stop: 10/05/24 17:04 Prednisone (Prednisone 20 Mg Tab) 40 mg PO DAILY [facility] Stop: 09/08/24 08:59 Last Admin: 09/06/24 08:52 Dose: 40 mg Prednisone (Prednisone 20 Mg Tab) 20 mg PO DAILY [facility] Stop: 09/10/24 08:59
[2024-09-06] MEDS ORDERED: ACETAMINOPHEN 1,000 MG/100 ML VIAL IV PRN (11:11)
[2024-09-06] MEDS: KETOROLAC TROMETHAMINE 15 MG/ML VIAL IV ONE (11:44)
[2024-09-06] MEDS: LEVALBUTEROL 1.25 MG/3 ML NEB NEB SCH (14:24)
--- NOTE | 2024-09-07 08:44 | Electrocardiogram Report ---
Test Reason : Blood Pressure : */* mmHG Vent. Rate : 88 BPM Atrial Rate : 88 BPM P-R Int : 152 ms QRS Dur : 80 ms QT Int : 380 ms P-R-T Axes : 69 61 71 degrees QTcB Int : 459 ms Normal sinus rhythm Normal ECG When compared with ECG of 05-Sep-2024 22:36, No significant change was found Confirmed by iLam Cabrera ([id number]) on 09/07/2024 8:43:48 AM Referred By: REFERRED SELF Confirmed By: Liam Cabrera
[2024-09-07] MEDS ORDERED: ALBUTEROL HFA 8 GM INHALER INH PRN (09:34)
--- NOTE | 2024-09-07 09:35 | Hospitalist Progress Note ---
<Statement entered by Lukas Vick, - 09/07/24 11:36> I have seen and examined the patient and have discussed the case with the advance practice provider. I have reviewed the advanced practitioner's documentation, and I agree with, and take responsibility for that plan of care. Patient states that her breathing is significantly improved. Still fairly significant cough. She reports that a lot of her symptoms that prompted her to seek attention the emergency room was due to probably gastroenteritis with some nausea vomiting and diarrhea. Chest pain associated with vomiting esophagitis and also musculoskeletal chest pain. She has a plan to call and get established with medical secretary receptionist so she can get prescriptions coverage. She does have some inhalers that we gave her from her last hospitalization to use at home. I stressed the importance to her daily use of these inhalers. Continue to coordinate with case management for disposition planning Additional plan of care as outlined below. I spent a total of 20 minutes coordinating, documenting, and providing care for this patient excluding time spent by another provider/QHP. Date of Service September 07, 2024 Assessment & Plan (1) COPD exacerbation: (2) Nausea vomiting and diarrhea: (3) Elevated troponin: (4) Hypertension: (5) Hypoxia: Plan Patient is 49 year old female with PMH asthma, COPD, HTN, past tobacco use, chronic back pain presented to ER with c/o SOB and CP x 1 day. Recent hospitalization here at [facility] 08/30/2024-09/03/2024 for COPD exacerbation, acute hypoxic respiratory failure and had negative respiratory viral panel and treated with steroids, nebs, azithromycin. Her sx are improving Her chest tightness is still present, but is reproducible, she feels like from coughing/vomiting [employer] N/V/D have since resolved Her trops went from 19 -->74 and has remained flat, ECG NSR w/o ST changes Echo reveals preserved EF with no WMA, grade 1 diastolic dysfunction, suspect elevated trop in setting of demand ischemia from hypoxia A1C 6.3 on 08/30 and lipid panel stable, consult certified lactation educator for pre DM counseling Continue Xopenex, Atrovent nebs, budesonide, formoterol nebs Continue prednisone, oxygen weaned, 2 step performed and pt does not qualify for home oxygen continue daily ASA, statin, HCTZ pt reports inability to afford medications, she has no car, and currently is so far behind on her rent that she can't possibly afford her medications she reports having albuterol inhaler and Fluticasone-Salmeterol at home, reports being sent home with samples last time she was admitted CM to provide pt with phone numbers for further assistance as outpt DVT ppx: Lovenox FULL CODE PCP: Fannie Garcia Dispo: admitted to medical, continue respiratory therapies today, Plan to D/C tomorrow 2/3, will need to discuss with pharmacy about possibly sending pt with additional inhaler samples I spent a total of 45 minutes coordinating, documenting and providing care for this patient excluding time spent in the performance of separately billed services or time spent by another provider/QHP. Admission and Anticipated Discharge Date Admission Date: September 05, 2024 Subjective Pt seen in [facility]-2. F/U COPD Exac. She feels her breathing is improving. She continues to have some chest tightness, but feels the nebs are helping. She is tolerating her diet although she did have 5 loose BM yesterday after eating. She denies SOB at rest, f/c/s, n/v or abd pain. She reports her fiance who she lives with woke up last night with N/V/D and she suspects he has the same thing. She is concerned about going home today with him being sick. Review of Systems Review of Systems: All systems reviewed & are unremarkable except as noted in HPI & below Physical Exam Physical Exam: Gen: WD/WN, obese, F, NAD, A&O x3 HEENT: Normocephalic, atraumatic, conjunctivae moist, sclerae anicteric, mucous membranes moist, edentulous Lung: Clear to Auscultation bilaterally with diminished BS throughout, no wheezes/rales/rhonchi Heart: Regular rate, regular rhythm, no murmurs, rubs, or gallops Abdomen: Soft, NT, ND +BS x 4 Extremities: No edema Skin: Warm, no rash, negative turgor. Results & Data Results & Data Vital Signs (Past 12 Hours) Vital Signs Temp Pulse Resp BP Pulse Ox O2 Del Method 09/07/24 07:42 94 H 16 94 Room Air 09/07/24 07:36 36.5 C 85 17 118/74 95 Room Air 09/07/24 02:36 93 H 17 93 Room Air Medications Administered Current Inpatient Medications Al Hydrox/Mg Hydrox/Simethicone (Aluminum/Magnesium/Simeth (Maalox Max) 30 Ml Udc) 30 ml PO Q6H PRN PRN Reason: Heartburn Stop: 10/05/24 20:35 Last Admin: 09/06/24 19:46 Dose: 30 ml Aspirin (Aspirin 81 Mg Ectab) 81 mg PO QAM [facility] Stop: 10/05/24 18:59 Last Admin: 09/07/24 08:40 Dose: 81 mg Atorvastatin Calcium (Atorvastatin 40 Mg Tab) 40 mg PO QAM [facility] Stop: 10/05/24 18:59 Last Admin: 09/07/24 08:40 Dose: 40 mg Budesonide (Budesonide 0.5 Mg/2 Ml Vial (Pulmicort)) 0.5 mg NEB BIDR [facility] Stop: 10/05/24 18:59 Last Admin: 09/07/24 07:41 Dose: 0.5 mg Enoxaparin Sodium (Enoxaparin Inj 40 Mg/0.4 Ml Syr) 40 mg SQ Q24H [facility] Stop: 10/05/24 17:59 Last Admin: 09/07/24 08:40 Dose: Not Given Formoterol Fumarate (Formoterol 20 Mcg/2 Ml Vial) 20 mcg NEB BIDR [facility] Stop: 10/05/24 18:59 Last Admin: 09/07/24 07:41 Dose: 20 mcg Hydrochlorothiazide (Hydrochlorothiazide 25 Mg Tab) 25 mg PO DAILY [facility] Stop: 10/05/24 17:59 Last Admin: 09/07/24 08:40 Dose: 25 mg Acetaminophen (Ofirmev) 1,000 mg in 100 mls @ 400 mls/hr IV Q8H PRN PRN Reason: pain/fever Stop: 09/09/24 11:10 Ipratropium [place] (Ipratropium [place] Neb Soln 0.02% 0.5mg/2.5ml Vial) 0.5 mg NEB Q6R [facility] Stop: 10/05/24 18:59 Last Admin: 09/07/24 07:42 Dose: Not Given Levalbuterol HCl (Levalbuterol 1.25 Mg/3 Ml Neb) 1.25 mg NEB Q6R [facility] Stop: 10/05/24 17:04 Last Admin: 09/07/24 07:42 Dose: Not Given Ondansetron HCl (Ondansetron Inj 2 Mg/Ml 2 Ml Vial) 4 mg IV Q6H PRN PRN Reason: Nausea Stop: 10/05/24 17:04 Last Admin: 09/05/24 20:18 Dose: 4 mg Polyethylene Glycol (Polyethylene (Miralax) 17 Gm Pack) 17 gm PO DAILY PRN PRN Reason: Constipation Stop: 10/05/24 17:04 Prednisone (Prednisone 20 Mg Tab) 40 mg PO DAILY [facility] Stop: 09/08/24 08:59 Last Admin: 09/07/24 08:40 Dose: 40 mg Prednisone (Prednisone 20 Mg Tab) 20 mg PO DAILY [facility] Stop: 09/10/24 08:59
[2024-09-08] MEDS ORDERED: predniSONE 10 MG TABLET PO SCH
[2024-09-08] MEDS: predniSONE 20 MG TAB PO SCH (08:32)
[2024-09-08] MEDS: ALUMINUM/MAGNESIUM SUSP 30 ML UDC PO STA (10:16)
[2024-09-08 14:35] VITALS: BP 139/84; PULSE 98; RESP 17; TEMP 97.9; O2SAT 94
--- NOTE | 2024-09-08 14:53 | Discharge Summary ---
<Statement entered by Lukas Vick, - 09/09/24 11:49> I have seen and examined the patient on the day of service. And have discussed the case with the advance practice provider. I have reviewed the advanced practitioner's documentation, and I agree with, and take responsibility for that plan of care. Patient overall reports that she is feeling improved. Suspect all of patient's symptoms that prompted a hospitalization was due to acute viral gastroenteritis. Her respiratory status seems to be at baseline. Reviewed importance of maintaining her inhalers and following up with outpatient providers and pursuing her medical assistance. Discharge plan of care as outlined below I spent a total of 20 minutes coordinating, documenting, and providing care for this patient excluding time spent by another provider/QHP. Discharge Summary Date of Service September 08, 2024 Principal Dx & Hospital Course #1 = Principal Diagnosis (1) Hypoxia: (2) COPD exacerbation: (3) Elevated troponin: (4) Nausea vomiting and diarrhea: Plan Rosa Valdez is a 49y/o F with PMHx significant for moderate persistent asthma, moderate COPD, HTN, allergic rhinitis, chronic bilateral low back pain and tobacco use disorder who presented to the ED via EMS on 09/05/24 with complaints of SOB, chest tightness and vomiting/diarrhea. Acute Hypoxia - RESOLVED Acute COPD/Asthma Exacerbation, Chest Tightness/Elevated Troponin [ACS Ruled- Out]: Previous admission under our service from 08/30/24-09/03/24 for acute hypoxic respiratory failure 2/2 COPD exacerbation. Successfully weaned off supplemental O2. Had negative respiratory BioFire panel and was managed with the following: po prednisone course, po Zithromax and pulmonary toileting. Course was complicated by an inability to obtain inhalers 2/2 lapse in patient's insurance and [id number] expenses. However, was able to obtain a 1-month supply of Trelegy for the patient. Patient notes compliance with Trelegy at home. She unfortunately started to develop SOB and chest tightness on 09/05/24 which prompted the call to EMS and her subsequent readmission to [facility] for further evaluation. Received 324mg ASA, an albuterol nebulizer treatment and IV Solu-Medrol via EMS en route to the ED prior to admission. CXR reviewed and unremarkable. RVP negative. Initial and repeat EKGs without evidence of ST changes. High-sensitivity troponin was initially elevated at 19.6 and trended up to 86.7 at its peak before flattening out to 73.7 on 09/06. Resting echocardiogram was reassuring with LVEF=60-65%, normal LV wall motion and grade I DD. Chest tightness is significantly improved - still somewhat noticeable but reproducible on exam. 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 Suspect elevated troponin ISO demand ischemia 2/2 acute hypoxia on presentation. Patient was initially at 81% SpO2 on RA in the ED. She was on supplemental O2 but has been successfully weaned off and she did not qualify for home O2 following her 2-step test. She is currently on a prednisone taper course. Spoke with pharmacy - discharging her with a prednisone home pack to complete full 6-day taper. Patient made aware. Patient still has Trelegy available at home - educated her on the important of taking this medication and following-up with her PCP to ensure continuity of care. Also encouraged her to apply for medical assistance/pursue aid to prevent lapses in her medications. CM supplied her with the [facility] Resource Book again as well as information on CVIM. Patient verbalized understanding. Appointment scheduled with PCP on 10/01/24. Nausea/Vomiting and Diarrhea: Suspect viral gastroenteritis. Symptoms significantly improved and starting to resolve on discharge. Tolerating regular diet without issue. Likely repetitive retching/vomiting attributed to chest tightness as well given its reproducible nature. Stool PCR and C. diff testing not performed this admission. Other Chronic Medical Conditions: HTN - Continue HCTZ 25mg daily. HLD - Continue atorvastatin 20mg daily. [Patient reports having both of these medications at home.] PCP: Fannie Garcia PA-C Disposition: Patient is being discharged home in stable condition. Encouraged patient to attend PCP f/u appointment as scheduled - plans to work on arranging transportation. Patient seen in collaboration with Dr. Vick. Please see addendum. I spent a total of 60 minutes coordinating, documenting, and providing care for this patient excluding time spent in the performance of separately billed services or time spent by another provider/QHP. This included personally re viewing all current laboratories and imaging studies, medical reconciliation, outpatient chart review and discussion with specialists. This chart was completed in part utilizing Speech Voice Recognition Software. Grammatical errors, random word insertions, pronoun errors, and incomplete sentences are an occasional consequence of this system due to software limitations, ambient noise, and hardware issues. Any formal questions or concerns about the content, text, or information contained within the body of this dictation should be directly addressed to the provider for clarification. Notes For Next Care Provider Patient with inability to obtain prescription medications due to financial constraint and lapse in health insurance coverage. Medication Changes From Visit Trelegy inhaler (samples obtained from OP office) given for 1-month supply to provide substitute for ICS/LABA/LAMA last admission. Admission HPI Per Admitting Provider Patient is 49 year old female with PMH asthma, COPD, HTN, past tobacco use, ch ronic back pain presented to ER with c/o SOB and CP x 1 day. Per inpatient chart review patient with history recent hospitalization here at [facility] 08/30/2024- 09/03/2024 for COPD exacerbation, acute hypoxic respiratory failure and had negative respiratory viral panel. She was treated with nebulizers, Mucinex, steroids, azithromycin. BPs were initially elevated and was started on losartan and BPs on the soft side so losartan was discontinued and patient was discharged home on HCTZ. Patient states she has been using her albuterol and inhaler that she was sent home with. States last night started with SOB and chest tightness again that felt similar to her previous symptoms and hospitalization. Reports EMS gave four baby aspirin, neb and Solumedrol and patient reports that her chest tightness and SOB greatly improved. States now just feeling some anterior chest and epigastric tenderness with palpation only. States started with nausea, vomiting and diarrhea last night. States numerous episodes of vomiting and profuse watery diarrhea. No further vomiting or diarrhea since in ER today. States now feeling hungry and denies other abdominal pain. No further chest pain while in ER. Previously on inhalers but reports insurance not covering so hasn't used anything other than albuterol. She reports was given inhaler upon discharge to have until can get financial situation figured out. She was given Rx for HCTZ but states didn't get filled secondary to financial issues. Denies fever/chills, diaphoresis, hematemesis, hematochezia, melena, TIAN, dizziness, syncope, vision changes, neck pain, orthopnea, palpitations, hemoptysis, sore throat, choking, rhinorrhea, paresthesias, weakness, extremity edema, rashes, urinary symptoms. Admission Exam Per Admitting Provider General: no acute distress, resting comfortably in bed, obese female Head: normocephalic, atraumatic Eyes: conjunctiva non-injected, anicteric ENT: normal inspection external ears, nose, mucous membranes moist Neck: supple, trachea midline Lungs: clear, no respiratory distress, no wheezing/rhonchi/rales CV: tachycardia, regular rhythm, rate 112, no murmur, no pretibial edema Chest wall: +tenderness to palpation sternal region Abd: normal BS, soft, +tenderness to palpation epigastric region only Ext: no cyanosis, no calf tenderness Neuro: A&O x 3, no focal deficits noted, normal affect Skin: warm, dry Discharge Exam General: Obese F, NAD, sitting up in bed, conversing appropriately. A+Ox3, euthymic affect. HEENT: Normocephalic/atraumatic. Conjunctivae normal. External ear/nose normal, oropharynx moist. Edentulous. Respiratory: Normal respiratory effort, lungs clear to auscultation bilaterally with diminished BS throughout. Cardiovascular: Regular rate/rhythm, normal peripheral pulses, no BLE edema. Vessels: No JVD. Abdomen/GI: Normal bowel sounds, soft, nondistended, nontender to palpation in all quadrants. Extremities/Musculoskeletal: No cyanosis or clubbing, extremities motor strength intact, moves all extremities. Updated Medication List Medication Instructions Recorded Confirmed Type albuterol sulfate 90 mcg/actuation 2 puff inhalation Q6H PRN 04/21/21 09/05/24 Rx aerosol inhaler Shortness Of Breath Or Wheezing #1 inhaler diclofenac sodium 1 % topical gel 2 g topical 4XD PRN Pain 08/30/24 09/05/24 History fluticasone 500 mcg-salmeterol 50 1 inh inhalation 2XD 08/30/24 09/05/24 History mcg/dose blistr powdr for inhalation tiotropium bromide 1.25 2 inh inhalation 1XD 08/30/24 09/05/24 History mcg/actuation mist for inhalation (Spiriva Respimat) atorvastatin 20 mg tablet 20 mg PO 1XD 30 days #30 tabs 09/03/24 09/05/24 Rx hydrochlorothiazide 25 mg tablet 25 mg PO DAILY #30 tabs 09/03/24 09/05/24 Rx Hospital Stay Data Consultations 01/31/25 14:18 ED Decision to Admit Stat Discharge Instructions Given to Patient (Per Discharging Provider) leon Lee were admitted to [facility] due to an acute COPD exacerbation and chest tightness. You underwent extensive cardiac workup regarding your chest tightness which thankfully all came back negative. You were treated with an oral prednisone (steroid) course while you were admitted for your COPD exacerbation. You are being sent home with a 3-day pack of prednisone to take in order to complete the full prednisone taper course - please take this medication as prescribed and in its entirety! Please also continue to take the Trelegy inhaler, which was sent home with you last admission, as prescribed! You have a follow-up appointment with your PCP as outlined below: Date & Time --> 10/01/2024 @ 11:40AM Provider --> Fannie Garcia PA-C Location --> [facility], [place] @ [facility] [place] Please attend your PCP follow-up appointment as scheduled! Please also ensure that you keep working with Patricia Jimenez ([phone]) to check on your insurance in order to prevent lapses in your prescribed medications - especially your inhalers! Seek medical attention if you have: * temperature above 101F * chest pain or trouble breathing * abdominal pain, nausea, vomiting * diarrhea, dark stools or bloody stools * any unanswered questions or concerns Call 911 if symptoms are severe. Please take good care of yourself! It has been a pleasure taking care of you. If you have any questions regarding your recent hospitalization please contact [facility] and request [facility] @ [phone]. Total Time Total Time Spent Total Time Spent (In Minutes): 60
[2024-09-09] MEDS ORDERED: predniSONE 10 MG TABLET PO SCH (09:00)
== END 2024-09-08 18:40 | disposition home or self-care (01) | DRG 191 ==
LOC: ED 11:20 → 2N 15:08 → SUATTDRO 15:08 → 2N 16:23 → 3E 09-06 17:58